=== PATIENT | female | born 1945 | race Caucasian/White ===

== ENCOUNTER 2021-02-15 13:42 | Inpatient (IN) | payer MEDICARE, OTHER ==
[~2021-02-15] VITALS: Ht 154.9 cm; Wt 48.1 kg
[2021-02-15] MEDS ORDERED: ATOR40TA59 PO (14:18)
[2021-02-15] MEDS ORDERED: TRAZ-120 PO (14:18)
[2021-02-15] MEDS ORDERED: VENL75TA PO (14:18)
[2021-02-15] MEDS ORDERED: LISI10TA16 PO (14:18)
[2021-02-15] MEDS ORDERED: GLIP5TAB10 PO (14:18)
[2021-02-15] MEDS ORDERED: METO25TA4 PO (14:18)
[2021-02-15] MEDS ORDERED: MAGNESIUM HYDROXIDE 2,400 MG/30 ML ORAL.SUSP. PO PRN (14:45)
[2021-02-15] MEDS ORDERED: ACETAMINOPHEN 325 MG TABLET PO PRN (14:45)
[2021-02-15] MEDS ORDERED: METHYL SALICYLATE/MENTHOL TOPICAL OINTMENT 57GM TUBE. TP PRN (14:45)
[2021-02-15] MEDS ORDERED: MAG HYDROX/AL HYDROX/SIMETH 30 ML ORAL.SUSP PO PRN (14:45)
[2021-02-15 15:37] VITALS: BP 136/69
[2021-02-15 16:46] LABS: BASO % 0 % (0-3); EOS % 0 % (0-3); HEMATOCRIT 43.2 % (36.0-47.0); HEMOGLOBIN 14.4 g/dL (12.0-15.5); LYMPH # 1.5 x10^3/uL (1.0-4.8); LYMPH % 25 % (24-48); MEAN CORPUSCULAR HEMOGLOBIN 30 pg (25-35); MEAN CORPUSCULAR HGB CONC 33 g/dL (31-37); MEAN CORPUSCULAR VOLUME 90 fL (79-100); MONO # 0.5 x10^3/uL (0.0-1.1); MONO % 8 % (0-9); NEUT # 3.8 x10^3uL (1.8-7.7); NEUT % 66 % (31-73); PLATELET COUNT 222 x10^3/uL (140-400); RED CELL DISTRIBUTION WIDTH 14.4 % (11.5-14.5); WHITE BLOOD COUNT 5.8 x10^3/uL (4.0-11.0)
[2021-02-15 16:57] LABS: ALBUMIN 3.9 g/dL (3.4-5.0); ALBUMIN/GLOBULIN RATIO 1.2 (1.0-1.7); CREATININE 0.8 mg/dL (0.6-1.0); GFR 70.1; MAGNESIUM 2.3 mg/dL (1.8-2.4); POTASSIUM 3.9 mmol/L (3.5-5.1); TOTAL BILIRUBIN 0.5 mg/dL (0.2-1.0); TOTAL PROTEIN 7.1 g/dL (6.4-8.2)
[2021-02-15 19:35] LABS: BACTERIA,URINE 0 /HPF (0-FEW); BILIRUBIN,URINE NEG (NEG); CLARITY,URINE CLEAR; COLOR,URINE YELLOW; GLUCOSE,URINE NEG (NEG); NITRITE,URINE NEG (NEG); SQUAMOUS EPITHELIAL CELL,UR OCC /LPF; WBC,URINE OCC /HPF (0-4)
[2021-02-15] MEDS: METOPROLOL TART IMMED RELEASE 25 MG TABLET. PO SCH (20:32)
[2021-02-15] MEDS: LISINOPRIL 10 MG TABLET PO SCH (20:32)
[2021-02-15] MEDS: ATORVASTATIN CALCIUM 20 MG TABLET PO SCH (20:33)
[2021-02-15] MEDS: traZODone 50 MG TABLET. PO SCH (20:33)
[2021-02-16 03:12] LABS: HEMOGLOBIN A1C 6.7 % (4.8-5.6); THYROXINE 7.7 ug/dL (4.5-12.0)
[2021-02-16 06:27] VITALS: BP 103/63
--- NOTE | 2021-02-16 08:47 | PDOC ---
Exam Note: Leighton Note: Late entry for 02/15/2021. Please also refer to the separate dictated note~for this date of service dictated separately.~Patient seen individually. Discussed the patient with Nursing staff reviewed the chart.~Reviewed interim history and current functioning. Reviewed vital signs,~Labs/ Radiology~and current medic ations noted below. Continue current treatment with the changes noted in the dictated addendum note Assessment: Vital Signs/I&O: Vital Signs Date Time Temp Pulse Resp B/P (MAP) Pulse Ox O2 Delivery O2 Flow Rate FiO2 02/16/21 06:27 97.4 76 16 103/63 (76) 94 I & O 02/15/21 02/15/21 02/16/21 15:00 23:00 07:00 Intake Total 840 ml Balance 840 ml Labs: Laboratory Tests Test 02/15/21 16:35 02/15/21 18:30 White Blood Count 5.8 x10^3/uL (4.0-11.0) Red Blood Count 4.80 x10^6/uL (3.50-5.40) Hemoglobin 14.4 g/dL (12.0-15.5) Hematocrit 43.2 % (36.0-47.0) Mean Corpuscular Volume 90 fL (79-100) Mean Corpuscular Hemoglobin 30 pg (25-35) Mean Corpuscular Hemoglobin Concent 33 g/dL (31-37) Red Cell Distribution Width 14.4 % (11.5-14.5) Platelet Count 222 x10^3/uL (140-400) Neutrophils (%) (Auto) 66 % (31-73) Lymphocytes (%) (Auto) 25 % (24-48) Monocytes (%) (Auto) 8 % (0-9) Eosinophils (%) (Auto) 0 % (0-3) Basophils (%) (Auto) 0 % (0-3) Neutrophils # (Auto) 3.8 x10^3uL (1.8-7.7) Lymphocytes # (Auto) 1.5 x10^3/uL (1.0-4.8) Monocytes # (Auto) 0.5 x10^3/uL (0.0-1.1) Eosinophils # (Auto) 0.0 x10^3/uL (0.0-0.7) Basophils # (Auto) 0.0 x10^3/uL (0.0-0.2) D-Dimer (Jolene) 0.60 mg/L (0.00-0.50) H Sodium Level 140 mmol/L (136-145) Potassium Level 3.9 mmol/L (3.5-5.1) Chloride Level 105 mmol/L (98-107) Carbon Dioxide Level 29 mmol/L (21-32) Anion Gap 6 (6-14) Blood Urea Nitrogen 18 mg/dL (7-20) Creatinine 0.8 mg/dL (0.6-1.0) Estimated GFR (Cockcroft-Gault) 70.1 BUN/Creatinine Ratio 23 (6-20) H Glucose Level 122 mg/dL (70-99) H Hemoglobin A1c 6.7 % (4.8-5.6) H Calcium Level 9.0 mg/dL (8.5-10.1) Magnesium Level 2.3 mg/dL (1.8-2.4) Total Bilirubin 0.5 mg/dL (0.2-1.0) Aspartate Amino Transferase (AST) 27 U/L (15-37) Alanine Aminotransferase (ALT) 37 U/L (14-59) Alkaline Phosphatase 64 U/L (46-116) Total Protein 7.1 g/dL (6.4-8.2) Albumin 3.9 g/dL (3.4-5.0) Albumin/Globulin Ratio 1.2 (1.0-1.7) Thyroxine (T4) 7.7 ug/dL (4.5-12.0) Total Triiodothyronine (TT3) 94 ng/dL (71-180) Urine Collection Type Unknown Urine Color Yellow Urine Clarity Clear Urine pH 6.5 Urine Specific [place] 1.025 Urine Protein Neg (NEG-TRACE) Urine Glucose (UA) Neg mg/dL (NEG) Urine Ketones (Stick) Neg mg/dL (NEG) Urine Blood Small (NEG) Urine Nitrite Neg (NEG) Urine Bilirubin Neg (NEG) Urine Urobilinogen Dipstick 1.0 mg/dL (0.2 mg/dL) Urine Leukocyte Esterase Neg (NEG) Urine RBC 3-5 /HPF (0-2) Urine WBC Occ /HPF (0-4) Urine Squamous Epithelial Cells Occ /LPF Urine Bacteria 0 /HPF (0-FEW) Current Medications: Meds: Current Medications Medications (Trade) Dose Ordered Sig/Manasa Route PRN Reason Start Time Stop Time Status Last Admin Dose Admin Lisinopril (Prinivil) 10 mg HS PO 02/15/21 21:00 02/15/21 20:32 Metoprolol Tartrate (Lopressor) 12.5 mg BID PO 02/15/21 21:00 02/15/21 20:32 Trazodone HCl (Desyrel) 50 mg QHS PO 02/15/21 21:00 02/15/21 20:33 Atorvastatin Calcium (Lipitor) 40 mg QHS PO 02/15/21 21:00 02/15/21 20:33 I have reviewed the current psychotropics carefully including drug interactions. Risk benefit ratio favors no change other than as noted in my dictated progress note. Diagnosis: Problems: (1) Major depressive disorder with psychotic features MARIA LUISA SMITH MD Feb 16, 2021 08:47
[2021-02-16] MEDS ORDERED: FLU VACC QUAD 21-22 (6MOS+) PF 0.5 ML SYRINGE. VAX IM ONE (09:00)
[2021-02-16] MEDS: METOPROLOL TART IMMED RELEASE 25 MG TABLET. PO SCH ×2 (09:32→20:17)
[2021-02-16] MEDS: glipiZIDE 5 MG TABLET PO SCH (09:32)
[2021-02-16] MEDS: VENLAFAXINE 75 MG TABLET. PO SCH (09:32)
[2021-02-16 11:41] LABS: THYROID STIM HORMONE (TSH) 0.999 uIU/mL (0.358-3.740)
[2021-02-16 16:01] VITALS: BP 127/74
--- NOTE | 2021-02-16 16:28 | CONS ---
DATE OF CONSULTATION: 02/16/2021 ATTENDING PHYSICIAN: Dr. Smith. REASON FOR CONSULTATION: We are asked to see this patient for a medical consultation. HISTORY OF PRESENT ILLNESS: The patient is a 75-year-old female admitted through [facility] with suicidal ideation. She is very depressed. She has made several gestures. She has had some visual hallucinations. There are underlying memory issues and dementia. She is comfortable this morning when I saw her. In talking with her, she tends to confabulate and make things up. She does have memory issues and could not answer simple questions. PAST MEDICAL HISTORY: Obtained from the chart is significant for essential hypertension; hyperlipidemia; type 2 diabetes, non-insulin dependent; urinary stress incontinence; depression; anxiety; and memory loss. ALLERGIES: She has no known drug allergies. SOCIAL HISTORY: She denied any alcohol or tobacco use. FAMILY HISTORY: Unobtainable. REVIEW OF SYSTEMS: Unfortunately is unobtainable. Much of the history is obtained from the family and intake. She has a daughter who is power of production manager. PHYSICAL EXAMINATION: GENERAL: When I saw her, this is a pleasant, middle-aged female. VITAL SIGNS: Her initial vital signs showed a blood pressure of 136/69 mmHg, her pulse is 78 and regular, her temperature is 98.1 degrees Fahrenheit, and oxygen saturation 94% on room air. HEENT: Head is without trauma. Pupils are reactive. Sclerae nonicteric. The oropharynx is clear. NECK: Supple. No bruits identified. LUNGS: Good breath sounds. CARDIOVASCULAR: Showed regular heart tones. No gallops. ABDOMEN: Soft. There is no guarding or rebound tenderness. EXTREMITIES: Without edema. NEUROLOGIC: Focally intact. She is alert. She is confused and cannot answer questions. She tries to confabulate and circumvent the issue. SKIN: Warm and dry. PERTINENT LABORATORY STUDIES: Admission hemoglobin was 14.4 g/dL with a white count of 5800. Electrolytes within normal range with a creatinine of 0.8 mg/dL. Nonfasting blood sugar 122, potassium is 3.9 mEq. Her hemoglobin A1c is slightly elevated at 6.7. Her T4 is 7.7 and normal. Transaminases are normal. Urinalysis was clear. ASSESSMENT: 1. This is a 75-year-old female who has underlying dementia. 2. Suicidal ideations with behavioral issues. 3. Type 2 diabetes mellitus with fairly good hemoglobin A1c and controlled. 4. Essential hypertension, currently normotensive. 5. Hyperlipidemia. PLAN: 1. This patient is stable from a medical standpoint. 2. I have reviewed her medicines and they should be continued as ordered. Thank you again for asking me to see the patient for a medical consultation. We should gladly follow her along during her inpatient course. NAVYA/PATI/ANA DR: Nicolasa TID: [id number] CC: MARIA LUISA SMITH MD
--- NOTE | 2021-02-16 17:33 | HP ---
ADMIT DATE: 02/15/2021 PSYCHIATRIC ADMISSION HISTORY/EVALUATION This late entry, date of service 02/15/2021 covers elements not covered in my initial note 02/15/2021. I met with the patient on the evening of 02/15/2021 for this evaluation. Previously discussed with nursing staff, reviewed the chart and also discussed with Sweetie Mora, [place] program coordinator. IDENTIFYING DATA: The patient is a 75-year-old female referred to us from [facility], where she presented from home on account of worsening symptoms of depression with suicidal ideation. Reportedly, she made a motion of a gun to her head. She has been depressed, having visual hallucinations of dogs and people verbally aggressive, having some auditory hallucinations, hearing voices that she needs to clean or she will be beheaded. She has had marked insomnia, worsening psychosis, agitation, depression, has failed outpatient psychiatric interventions resulting in this referral. CHIEF COMPLAINT: "I came today." The year is 2019. No, I don't remember the name of the president. I know who he is. No, I don't remember who was the president before him." The patient responded to my specific questions as noted. HISTORY OF PRESENT ILLNESS: The patient has a history of worsening symptoms of depression, feeling hopeless, helpless, worthless, with marked insomnia, sleep and appetite changes. She has made suicidal statements and motions and has been more forgetful and paranoid with hallucinations as noted above. No active homicidal ideation. PAST PSYCHIATRIC HISTORY: As above. MEDICAL HISTORY: Hypertension, hyperlipidemia, type 2 diabetes mellitus, urinary incontinence, recurrent falls. Accu-Cheks daily. CODE STATUS: FULL CODE. ALLERGIES: Negative. DIET: ADA. Takes medications whole. Ambulates independently. UA is awaited. CURRENT PSYCHOTROPICS: Trazodone 50 mg at bedtime, Effexor 75 mg b.i.d., but we are reducing this down to 75 mg a day since information from family indicates that she has had worsening psychosis and confusion with the higher dosage and both her daughters are nurses and they have observed similar effect with higher dosages of other antidepressants in the past. We have also started her on Zyprexa 2.5 mg q. 2 hours p.r.n., psychosis, agitation, max 7.5 mg in 24 hours after the nursing staff had called me as an emergency earlier. FAMILY HISTORY: Noncontributory. SOCIAL HISTORY: No history of alcohol, drug abuse, physical, sexual, or elder abuse. She is not known to be a perpetrator. REACTION TO HOSPITALIZATION: The patient accepting of it. ASSETS: Supportive family. REVIEW OF SYSTEMS: No CV, , pulmonary, eye, ENT system symptoms on review. Reliability poor. I met with the patient in her room evening of 02/15/2021. MENTAL STATUS EXAM: The patient is alert, oriented to herself, situation. Speech has some latency, coherent. Abstraction fair. Computation impaired. Language function intact. Mood and affect depressed. She has some intermittent hallucinations. Memory is impaired for recent events, remote is better. Somewhat distractible, anxious. No current suicidal or homicidal ideation. LABORATORY DATA: Reviewed. IMPRESSION: Major depressive disorder with psychotic features; major neurocognitive disorder; Alzheimer, vascular with delusion; depression; behavioral disturbance; anxiety disorder, unspecified; impulse control disorder, unspecified. Rest as above. PLAN: Admit to geropsychiatry unit at [facility]. I will see the patient daily individually from a psychiatric standpoint. Medical followup, Dr. Hardy/Dr. Corrigan. Continue the patient on her current psychotropics. Check CT head if not done recently. Continue current psychotropics, but reduce the Effexor as above. Make further changes as clinically indicated. ESTIMATED LENGTH OF STAY: 10-12 days. DISPOSITION PLANS: Back home or placement of that sort determined when she is stabilized. AISSATOU DR: Anita TID: [id number]
[2021-02-16] MEDS: traZODone 50 MG TABLET. PO SCH (20:14)
[2021-02-16] MEDS: ATORVASTATIN CALCIUM 20 MG TABLET PO SCH (20:14)
[2021-02-16] MEDS: LISINOPRIL 10 MG TABLET PO SCH (20:17)
[2021-02-16] MEDS: QUEtiapine 25 MG TABLET. PO SCH (20:18)
--- NOTE | 2021-02-16 21:30 | PDOC ---
Exam Note: Leighton Note: Please also refer to the separate dictated note~for this date of service dictated separately.~Patient seen individually. Discussed the patient with Nursing staff reviewed the chart.~Reviewed interim history and current functioning. Reviewed vital signs,~Labs/ Radiology~and current medications noted below. Continue current treatment with the changes noted in the dictated addendum note Assessment: Vital Signs/I&O: Vital Signs Date Time Temp Pulse Resp B/P (MAP) Pulse Ox O2 Delivery O2 Flow Rate FiO2 02/16/21 20:17 78 127/74 02/16/21 16:01 97.7 20 97 Room Air I & O 02/15/21 02/15/21 02/16/21 15:00 23:00 07:00 Intake Total 840 ml Balance 840 ml Current Medications: Meds: Current Medications Medications (Trade) Dose Ordered Sig/Manasa Route PRN Reason Start Time Stop Time Status Last Admin Dose Admin Acetaminophen (Tylenol) 650 mg PRN Q6HRS PRN PO MILD PAIN / TEMP > 100.3'F 02/15/21 14:45 Multi-Ingredient Ointment (Analgesic [place]) 1 anibal PRN QID PRN TP MUSCLE PAIN 02/15/21 14:45 Al Hydroxide/Mg Hydroxide (Mylanta Plus Xs) 15 ml PRN AFTMEALHC PRN PO DYSPEPSIA 02/15/21 14:45 Magnesium Hydroxide (Milk Of Magnesia) 2,400 mg PRN QHS PRN PO CONSTIPATION 02/15/21 14:45 Influenza Virus Vaccine Quadrival (Flulaval Quad [id number] Syringe) 0.5 ml ONCE ONCE VAX IM 02/16/21 09:00 02/16/21 09:01 DC 02/16/21 09:40 Glipizide (Glucotrol) 2.5 mg DAILY PO 02/16/21 09:00 02/16/21 09:32 Lisinopril (Prinivil) 10 mg HS PO 02/15/21 21:00 02/16/21 20:17 Metoprolol Tartrate (Lopressor) 12.5 mg BID PO 02/15/21 21:00 02/16/21 20:17 Trazodone HCl (Desyrel) 50 mg QHS PO 02/15/21 21:00 02/16/21 20:14 Venlafaxine HCl (Effexor) 75 mg DAILY PO 02/16/21 09:00 02/16/21 09:32 Atorvastatin Calcium (Lipitor) 40 mg QHS PO 02/15/21 21:00 02/16/21 20:14 Quetiapine Fumarate (SEROquel) 12.5 mg QHS PO 02/16/21 21:00 02/16/21 20:18 Current Medications Medications (Trade) Dose Ordered Sig/Manasa Route PRN Reason Start Time Stop Time Status Last Admin Dose Admin Influenza Virus Vaccine Quadrival (Flulaval Quad Syringe) 0.5 ml ONCE ONCE VAX IM 02/16/21 09:00 02/16/21 09:01 DC 02/16/21 09:40 Glipizide (Glucotrol) 2.5 mg DAILY PO 02/16/21 09:00 02/16/21 09:32 Venlafaxine HCl (Effexor) 75 mg DAILY PO 02/16/21 09:00 02/16/21 09:32 Quetiapine Fumarate (SEROquel) 12.5 mg QHS PO 02/16/21 21:00 02/16/21 20:18 I have reviewed the current psychotropics carefully including drug interactions. Risk benefit ratio favors no change other than as noted in my dictated progress note. Diagnosis: Problems: (1) Major neurocognitive disorder (2) Dementia in Alzheimer's disease with delusions (3) Dementia in Alzheimer's disease with depression (4) Dementia in Alzheimer's disease with early onset with behavioral disturbance (5) Dementia, vascular, with delusions (6) Dementia, vascular, with depression (7) Anxiety disorder, unspecified (8) Impulse control disorder, unspecified (9) Major depressive disorder with psychotic features MARIA LUISA SMITH MD Feb 16, 2021 21:30
[2021-02-17 06:15] VITALS: BP 124/54
[2021-02-17] MEDS: VENLAFAXINE 75 MG TABLET. PO SCH (08:38)
[2021-02-17] MEDS: glipiZIDE 5 MG TABLET PO SCH (08:38)
[2021-02-17] MEDS: METOPROLOL TART IMMED RELEASE 25 MG TABLET. PO SCH ×2 (08:38→20:07)
--- NOTE | 2021-02-17 12:36 | PN ---
DATE: 02/16/2021 PSYCHIATRIC PROGRESS NOTE SUBJECTIVE: I met with the patient on evening of 02/16/2021 in [address] hallway outside her room. Per LUCIANO Sprague, the patient slept 6-1/2 hours previous night, remained somewhat confused. Denies suicidal ideation. No hallucinations noted. She is quite confused and delusional, believes she came here for surgery because of her memory problems. She was paranoid in the morning. No CV, , pulmonary, eye system symptoms on review. Complains of feeling cold. MENTAL STATUS EXAMINATION: Oriented to herself, situation. Speech has some latency, coherent. Abstraction fair. Computation impaired. Language function intact. Mood and affect remains somewhat dysphoric, anxious. Labs reviewed. She is paranoid. ASSESSMENT: Major depressive disorder with psychotic features, mild cognitive impairment versus major neurocognitive disorder, Alzheimer's vascular with delusion, depression; anxiety disorder, unspecified. Rest unchanged. PLAN: Start Seroquel 12.5 mg at bedtime for her mood symptoms, anxiety and paranoia. Effexor has been reduced down to 75 mg a day following feedback from the family that the higher dosages worsened some of her mood and psychosis. Continue trazodone 50 mg at bedtime and Zyprexa p.r.n. KONRAD/CHRISTINE DR: KONRAD/madhu TID: [id number]
[2021-02-17 15:39] VITALS: BP 128/56
[2021-02-17] MEDS: LISINOPRIL 10 MG TABLET PO SCH (20:08)
[2021-02-17] MEDS: traZODone 50 MG TABLET. PO SCH (20:08)
[2021-02-17] MEDS: QUEtiapine 25 MG TABLET. PO SCH (20:08)
[2021-02-17] MEDS: ATORVASTATIN CALCIUM 20 MG TABLET PO SCH (20:08)
--- NOTE | 2021-02-17 21:34 | PDOC ---
Exam Note: Leighton Note: Please also refer to the separate dictated note~for this date of service dictated separately.~Patient seen individually. Discussed the patient with Nursing staff reviewed the chart.~Reviewed interim history and current functioning. Reviewed vital signs,~Labs/ Radiology~and current medications noted below. Continue current treatment with the changes noted in the dictated addendum note Assessment: Vital Signs/I&O: Vital Signs Date Time Temp Pulse Resp B/P (MAP) Pulse Ox O2 Delivery O2 Flow Rate FiO2 02/17/21 20:08 76 128/56 02/17/21 15:39 98.0 18 98 Room Air I & O 02/16/21 02/16/21 02/17/21 15:00 23:00 07:00 Intake Total 240 ml 360 ml Balance 240 ml 360 ml Current Medications: Meds: Current Medications Medications (Trade) Dose Ordered Sig/Manasa Route PRN Reason Start Time Stop Time Status Last Admin Dose Admin Acetaminophen (Tylenol) 650 mg PRN Q6HRS PRN PO MILD PAIN / TEMP > 100.3'F 02/15/21 14:45 Multi-Ingredient Ointment (Analgesic [place]) 1 anibal PRN QID PRN TP MUSCLE PAIN 02/15/21 14:45 Al Hydroxide/Mg Hydroxide (Mylanta Plus Xs) 15 ml PRN AFTMEALHC PRN PO DYSPEPSIA 02/15/21 14:45 Magnesium Hydroxide (Milk Of Magnesia) 2,400 mg PRN QHS PRN PO CONSTIPATION 02/15/21 14:45 Influenza Virus Vaccine Quadrival (Flulaval Quad [id number] Syringe) 0.5 ml ONCE ONCE VAX IM 02/16/21 09:00 02/16/21 09:01 DC 02/16/21 09:40 Glipizide (Glucotrol) 2.5 mg DAILY PO 02/16/21 09:00 02/17/21 08:38 Lisinopril (Prinivil) 10 mg HS PO 02/15/21 21:00 02/17/21 20:08 Metoprolol Tartrate (Lopressor) 12.5 mg BID PO 02/15/21 21:00 02/17/21 20:07 Trazodone HCl (Desyrel) 50 mg QHS PO 02/15/21 21:00 02/17/21 20:08 Venlafaxine HCl (Effexor) 75 mg DAILY PO 02/16/21 09:00 02/17/21 08:38 Atorvastatin Calcium (Lipitor) 40 mg QHS PO 02/15/21 21:00 02/17/21 20:08 Quetiapine Fumarate (SEROquel) 12.5 mg QHS PO 02/16/21 21:00 02/17/21 20:08 I have reviewed the current psychotropics carefully including drug interactions. Risk benefit ratio favors no change other than as noted in my dictated progress note. Diagnosis: Problems: (1) Major depressive disorder with psychotic features (2) Impulse control disorder, unspecified (3) Anxiety disorder, unspecified (4) Dementia, vascular, with depression (5) Dementia, vascular, with delusions (6) Dementia in Alzheimer's disease with depression (7) Dementia in Alzheimer's disease with delusions (8) Major neurocognitive disorder (9) Dementia in Alzheimer's disease with early onset with behavioral disturbance MARIA LUISA SMITH MD Feb 17, 2021 21:34
[2021-02-18 05:59] VITALS: BP 161/54
[2021-02-18] MEDS: glipiZIDE 5 MG TABLET PO SCH (08:35)
[2021-02-18] MEDS: VENLAFAXINE 75 MG TABLET. PO SCH (08:35)
[2021-02-18] MEDS: METOPROLOL TART IMMED RELEASE 25 MG TABLET. PO SCH ×2 (08:35→20:35)
[2021-02-18 15:46] VITALS: BP 141/65
[2021-02-18] MEDS: ATORVASTATIN CALCIUM 20 MG TABLET PO SCH (20:33)
[2021-02-18] MEDS: LISINOPRIL 10 MG TABLET PO SCH (20:34)
[2021-02-18] MEDS: QUEtiapine 25 MG TABLET. PO SCH (20:34)
[2021-02-18] MEDS: traZODone 50 MG TABLET. PO SCH (20:35)
--- NOTE | 2021-02-18 21:33 | PDOC ---
Exam Note: Leighton Note: Please also refer to the separate dictated note~for this date of service dictated separately.~Patient seen individually. Discussed the patient with Nursing staff reviewed the chart.~Reviewed interim history and current functioning. Reviewed vital signs,~Labs/ Radiology~and current medications noted below. Continue current treatment with the changes noted in the dictated addendum note Assessment: Vital Signs/I&O: Vital Signs Date Time Temp Pulse Resp B/P (MAP) Pulse Ox O2 Delivery O2 Flow Rate FiO2 02/18/21 20:35 75 141/65 02/18/21 15:46 97.8 20 99 02/17/21 15:39 Room Air I & O 02/17/21 02/17/21 02/18/21 15:00 23:00 07:00 Intake Total 360 ml 480 ml Balance 360 ml 480 ml Current Medications: Meds: Current Medications Medications (Trade) Dose Ordered Sig/Manasa Route PRN Reason Start Time Stop Time Status Last Admin Dose Admin Acetaminophen (Tylenol) 650 mg PRN Q6HRS PRN PO MILD PAIN / TEMP > 100.3'F 02/15/21 14:45 Multi-Ingredient Ointment (Analgesic [place]) 1 anibal PRN QID PRN TP MUSCLE PAIN 02/15/21 14:45 Al Hydroxide/Mg Hydroxide (Mylanta Plus Xs) 15 ml PRN AFTMEALHC PRN PO DYSPEPSIA 02/15/21 14:45 Magnesium Hydroxide (Milk Of Magnesia) 2,400 mg PRN QHS PRN PO CONSTIPATION 02/15/21 14:45 Influenza Virus Vaccine Quadrival (Flulaval Quad [id number] Syringe) 0.5 ml ONCE ONCE VAX IM 02/16/21 09:00 02/16/21 09:01 DC 02/16/21 09:40 Glipizide (Glucotrol) 2.5 mg DAILY PO 02/16/21 09:00 02/18/21 08:35 Lisinopril (Prinivil) 10 mg HS PO 02/15/21 21:00 02/18/21 20:34 Metoprolol Tartrate (Lopressor) 12.5 mg BID PO 02/15/21 21:00 02/18/21 20:35 Trazodone HCl (Desyrel) 50 mg QHS PO 02/15/21 21:00 02/18/21 20:35 Venlafaxine HCl (Effexor) 75 mg DAILY PO 02/16/21 09:00 02/18/21 08:35 Atorvastatin Calcium (Lipitor) 40 mg QHS PO 02/15/21 21:00 02/18/21 20:33 Quetiapine Fumarate (SEROquel) 12.5 mg QHS PO 02/16/21 21:00 02/18/21 20:34 I have reviewed the current psychotropics carefully including drug interactions. Risk benefit ratio favors no change other than as noted in my dictated progress note. Diagnosis: Problems: (1) Impulse control disorder, unspecified (2) Anxiety disorder, unspecified (3) Dementia, vascular, with depression (4) Dementia, vascular, with delusions (5) Dementia in Alzheimer's disease with depression (6) Dementia in Alzheimer's disease with delusions (7) Major neurocognitive disorder (8) Dementia in Alzheimer's disease with early onset with behavioral disturbance MARIA LUISA SMITH MD Feb 18, 2021 21:33
[2021-02-19 06:05] VITALS: BP 148/88
[2021-02-19] MEDS: glipiZIDE 5 MG TABLET PO SCH (08:52)
[2021-02-19] MEDS: METOPROLOL TART IMMED RELEASE 25 MG TABLET. PO SCH ×2 (08:52→20:20)
[2021-02-19] MEDS: VENLAFAXINE 75 MG TABLET. PO SCH (08:52)
--- NOTE | 2021-02-19 14:25 | TX PLAN ---
Interdisciplinary Tx Plan Admission Information Feb 15, 2021 at 13:55 Legal Status (on Admission): Voluntary DPOA/Guardian Name: Marlys Donaldson Contact Other Contact Verified Code Status: DNR Allergies: Coded Allergies: No Known Drug Allergies (Unverified , 02/15/21) Diagnoses Primary Diagnosis: MDD with psychotic features Reasons for Admission: Agitated, Sig. Change Sleep, Hallucinations, Suicidal ideation, Confusion/Disoriented, Other Problem in Patient's Words: She is not being cared for and continues to have increased hallucinations/depression. Additional Admission Comments: According to the intake, pt is SI, wants to be under [place], insomnia, depressed, made motion of holding gun to her head, visual hallucinations, seeing dogs and people, verbal aggression. Problems Active Problems: Confusion Inactive Problems: Medication compliant Pt Strengths/Limitations Ability for [place]: Poor Cognitive Functioning/Ability: Fair Communication Skills/Ability: Fair Financial Resources: Fair Insight/Judgement: Poor Intellectual Ability: Fair Physical Health: Fair Social Skills: Fair Stability in Family: Good Stability in School/Work: Poor Verbal Skills: Fair Discharge Criteria Discharge Criteria: Able meet basic life need, Adequate arrangements @DC, Improved behavior, Improved mood/thought Preliminary Discharge Plan Preliminary DC Plan: Current Living Arrange., Other Special Precautions Fall Risk: Low Initial D/C Plan Discharge plan is unknown at this time; may need referrals for a higher level of care. Identified Discharge Needs: Concerned may need a higher level of care. Currently Utilized Resources Currently Utilized Resources/P: Primary Care Physician Neurologist Referrals Community Resources: None Identified Problems/Hx/Goals Objectives/Short-Term Goals Short Term Goals: Dec. Aggression, Dec. Outbursts, Dec. Symp. Depression, Prevent Deterioration, Promote Coping Skill Short Term Goals in Patient's: N/A Interventions/Frequency Staff Interventions/Frequency&: Psychiatrist to assess pt at least 3x per week for medication management. Social Work to assess pt at least 2x per week to identify barriers to care and discharge planning goals. Nursing to assess pt medication effects, behavior management and complete 15 minute checks daily. Encourage participation in group activities (if applicable) or 1:1 engagement based off activity dept goals. History Vocational History: Pt worked in [employer] most of her life. 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 Community Follow-up Primary Care Physician Neurologist Treatment Plan Explained Patient/Product Handler had this treatment plan explained to him/her as indicated by the signature below and has been given the opportunity to ask questions and make suggestions: Date: Patient/Product Handler Signature: Patient/Product Handler Decline: No (Pt daughters active in care.) EVELYN MAYA Feb 19, 2021 14:25
[2021-02-19 15:39] VITALS: BP 146/76
[2021-02-19] MEDS: traZODone 50 MG TABLET. PO SCH (20:19)
[2021-02-19] MEDS: ATORVASTATIN CALCIUM 20 MG TABLET PO SCH (20:19)
[2021-02-19] MEDS: QUEtiapine 25 MG TABLET. PO SCH (20:19)
[2021-02-19] MEDS: LISINOPRIL 10 MG TABLET PO SCH (20:19)
--- NOTE | 2021-02-19 22:48 | PDOC ---
Exam Note: Leighton Note: Please also refer to the separate dictated note~for this date of service dictated separately.~Patient seen individually. Discussed the patient with Nursing staff reviewed the chart.~Reviewed interim history and current functioning. Reviewed vital signs,~Labs/ Radiology~and current medications noted below. Continue current treatment with the changes noted in the dictated addendum note Assessment: Vital Signs/I&O: Vital Signs Date Time Temp Pulse Resp B/P (MAP) Pulse Ox O2 Delivery O2 Flow Rate FiO2 02/19/21 20:20 77 146/76 02/19/21 15:39 98.2 20 98 02/17/21 15:39 Room Air I & O 02/18/21 02/18/21 02/19/21 15:00 23:00 07:00 Intake Total 600 ml 600 ml Balance 600 ml 600 ml Current Medications: Meds: Current Medications Medications (Trade) Dose Ordered Sig/Manasa Route PRN Reason Start Time Stop Time Status Last Admin Dose Admin Acetaminophen (Tylenol) 650 mg PRN Q6HRS PRN PO MILD PAIN / TEMP > 100.3'F 02/15/21 14:45 Multi-Ingredient Ointment (Analgesic [place]) 1 anibal PRN QID PRN TP MUSCLE PAIN 02/15/21 14:45 Al Hydroxide/Mg Hydroxide (Mylanta Plus Xs) 15 ml PRN AFTMEALHC PRN PO DYSPEPSIA 02/15/21 14:45 Magnesium Hydroxide (Milk Of Magnesia) 2,400 mg PRN QHS PRN PO CONSTIPATION 02/15/21 14:45 Influenza Virus Vaccine Quadrival (Flulaval Quad [id number] Syringe) 0.5 ml ONCE ONCE VAX IM 02/16/21 09:00 02/16/21 09:01 DC 02/16/21 09:40 Glipizide (Glucotrol) 2.5 mg DAILY PO 02/16/21 09:00 02/19/21 08:52 Lisinopril (Prinivil) 10 mg HS PO 02/15/21 21:00 02/19/21 20:19 Metoprolol Tartrate (Lopressor) 12.5 mg BID PO 02/15/21 21:00 02/19/21 20:20 Trazodone HCl (Desyrel) 50 mg QHS PO 02/15/21 21:00 02/19/21 20:19 Venlafaxine HCl (Effexor) 75 mg DAILY PO 02/16/21 09:00 02/19/21 08:52 Atorvastatin Calcium (Lipitor) 40 mg QHS PO 02/15/21 21:00 02/19/21 20:19 Quetiapine Fumarate (SEROquel) 12.5 mg QHS PO 02/16/21 21:00 02/19/21 20:19 I have reviewed the current psychotropics carefully including drug interactions. Risk benefit ratio favors no change other than as noted in my dictated progress note. 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
--- NOTE | 2021-02-19 23:46 | PN ---
DATE: 02/17/2021 PSYCHIATRIC PROGRESS NOTE This is a late entry of 02/17 that covers the elements not covered in my initial note. SUBJECTIVE: Discussed with Mckenna RN. The patient slept 5 hours previous night. She has been confused, forgetful, wandering the hallways and has made good friends with one other demented patient, compliant with medications. No hallucinations noted, gets a little irritable at times. REVIEW OF SYSTEMS: No CV, , pulmonary, eye, ENT system symptoms on review. I met her in the hallway outside her room. MENTAL STATUS EXAMINATION: Oriented to herself. Insight, judgment, recent and remote memory, attention, concentration, fund of knowledge poor consistent with her diagnosis. Remote memory are better than recent labs reviewed. IMPRESSION: Major depressive disorder with psychotic features. Major neurocognitive disorder, Alzheimer, vascular with delusion, depression. Rest unchanged. PLAN: Continue psychotropics from initial note. Effexor has been reduced. Maintain trazodone, Seroquel at low dose 12.5 mg at bedtime, may need to adjust this if psychotic symptoms evident. CONI DR: Anita TID: [id number]
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
[2021-02-20 05:49] VITALS: BP 155/72
[2021-02-20] MEDS: VENLAFAXINE 75 MG TABLET. PO SCH (08:40)
[2021-02-20] MEDS: glipiZIDE 5 MG TABLET PO SCH (08:41)
[2021-02-20] MEDS: METOPROLOL TART IMMED RELEASE 25 MG TABLET. PO SCH ×2 (08:41→20:20)
[2021-02-20 15:53] VITALS: BP 122/79
[2021-02-20] MEDS: traZODone 50 MG TABLET. PO SCH (20:20)
[2021-02-20] MEDS: LISINOPRIL 10 MG TABLET PO SCH (20:20)
[2021-02-20] MEDS: ATORVASTATIN CALCIUM 20 MG TABLET PO SCH (20:20)
[2021-02-20] MEDS: QUEtiapine 25 MG TABLET. PO SCH (20:21)
--- NOTE | 2021-02-20 21:52 | PDOC ---
Exam Note: Leighton Note: Please also refer to the separate dictated note~for this date of service dictated separately.~Patient seen individually. Discussed the patient with Nursing staff reviewed the chart.~Reviewed interim history and current functioning. Reviewed vital signs,~Labs/ Radiology~and current medications noted below. Continue current treatment with the changes noted in the dictated addendum note Assessment: Vital Signs/I&O: Vital Signs Date Time Temp Pulse Resp B/P (MAP) Pulse Ox O2 Delivery O2 Flow Rate FiO2 02/20/21 20:20 71 122/79 02/20/21 15:53 98.0 18 97 02/17/21 15:39 Room Air I & O 02/19/21 02/19/21 02/20/21 15:00 23:00 07:00 Intake Total 600 ml 500 ml Balance 600 ml 500 ml Current Medications: Meds: Current Medications Medications (Trade) Dose Ordered Sig/Manasa Route PRN Reason Start Time Stop Time Status Last Admin Dose Admin Acetaminophen (Tylenol) 650 mg PRN Q6HRS PRN PO MILD PAIN / TEMP > 100.3'F 02/15/21 14:45 Multi-Ingredient Ointment (Analgesic [place]) 1 anibal PRN QID PRN TP MUSCLE PAIN 02/15/21 14:45 Al Hydroxide/Mg Hydroxide (Mylanta Plus Xs) 15 ml PRN AFTMEALHC PRN PO DYSPEPSIA 02/15/21 14:45 Magnesium Hydroxide (Milk Of Magnesia) 2,400 mg PRN QHS PRN PO CONSTIPATION 02/15/21 14:45 Influenza Virus Vaccine Quadrival (Flulaval Quad [id number] Syringe) 0.5 ml ONCE ONCE VAX IM 02/16/21 09:00 02/16/21 09:01 DC 02/16/21 09:40 Glipizide (Glucotrol) 2.5 mg DAILY PO 02/16/21 09:00 02/20/21 08:41 Lisinopril (Prinivil) 10 mg HS PO 02/15/21 21:00 02/20/21 20:20 Metoprolol Tartrate (Lopressor) 12.5 mg BID PO 02/15/21 21:00 02/20/21 20:20 Trazodone HCl (Desyrel) 50 mg QHS PO 02/15/21 21:00 02/20/21 20:20 Venlafaxine HCl (Effexor) 75 mg DAILY PO 02/16/21 09:00 02/20/21 08:40 Atorvastatin Calcium (Lipitor) 40 mg QHS PO 02/15/21 21:00 02/20/21 20:20 Quetiapine Fumarate (SEROquel) 12.5 mg QHS PO 02/16/21 21:00 02/20/21 20:21 I have reviewed the current psychotropics carefully including drug interactions. Risk benefit ratio favors no change other than as noted in my dictated progress note. 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
[2021-02-21 06:28] VITALS: BP 113/53
[2021-02-21] MEDS: glipiZIDE 5 MG TABLET PO SCH (09:04)
[2021-02-21] MEDS: METOPROLOL TART IMMED RELEASE 25 MG TABLET. PO SCH ×2 (09:04→20:34)
[2021-02-21] MEDS: VENLAFAXINE 75 MG TABLET. PO SCH (09:04)
[2021-02-21 16:15] VITALS: BP 164/71
[2021-02-21] MEDS: ATORVASTATIN CALCIUM 20 MG TABLET PO SCH (20:33)
[2021-02-21] MEDS: LISINOPRIL 10 MG TABLET PO SCH (20:33)
[2021-02-21] MEDS: traZODone 50 MG TABLET. PO SCH (20:34)
[2021-02-21] MEDS: QUEtiapine 25 MG TABLET. PO SCH (20:34)
--- NOTE | 2021-02-21 22:25 | PDOC ---
Exam Note: Leighton Note: This note is a late entry for 02/19/2021 covers elements not covered in my initial note. Subjective: The patient was seen individually in the evening of 02/19/2021 with Jacqui WOLF, discussed and reviewed the chart. The patient slept 7 hours previous night. Patient remains confused. She thought she was in [place] visiting her aunt. She is compliant with medications. I met with her in the hallway outside her room. Review of Systems: No CV, , pulmonary, eye, ENT system symptoms on review. Reliability poor. Mental Status Exam: The patient is oriented to herself and situation. Insight, judgment, recent memory is impaired. Remote is better. Language function intact. Attention span short. Mood and affect improved. Laboratory Data: Reviewed. Impression: Major depressive disorder with psychotic features. Major neurocognitive disorder, Alzheimer, vascular with delusion, depression, behavioral disturbance. Anxiety disorder unspecified. Impulse control disorder unspecified. Plan: No change from initial note. Assessment: Vital Signs/I&O: Vital Signs Date Time Temp Pulse Resp B/P (MAP) Pulse Ox O2 Delivery O2 Flow Rate FiO2 02/21/21 20:34 78 164/71 02/21/21 16:15 97.3 16 96 02/17/21 15:39 Room Air I & O0 02/20/21 02/20/21 02/21/21 15:00 23:00 07:00 Intake Total 560 ml 480 ml Balance 560 ml 480 ml Labs: Laboratory Tests Test 02/21/21 06:00 SARS-CoV-2 (PCR) Not detected (NOT DETECTD) Current Medications: Meds: Laboratory Tests Test 02/21/21 06:00 Coronavirus (COVID-19)(PCR) Not detected Current Medications Medications (Trade) Dose Ordered Sig/Manasa Route PRN Reason Start Time Stop Time Status Last Admin Dose Admin Acetaminophen (Tylenol) 650 mg PRN Q6HRS PRN PO MILD PAIN / TEMP > 100.3'F 02/15/21 14:45 Multi-Ingredient Ointment (Analgesic [place]) 1 anibal PRN QID PRN TP MUSCLE PAIN 02/15/21 14:45 Al Hydroxide/Mg Hydroxide (Mylanta Plus Xs) 15 ml PRN AFTMEALHC PRN PO DYSPEPSIA 02/15/21 14:45 Magnesium Hydroxide (Milk Of Magnesia) 2,400 mg PRN QHS PRN PO CONSTIPATION 02/15/21 14:45 Influenza Virus Vaccine Quadrival (Flulaval Quad Syringe) 0.5 ml ONCE ONCE VAX IM 02/16/21 09:00 02/16/21 09:01 DC 02/16/21 09:40 Glipizide (Glucotrol) 2.5 mg DAILY PO 02/16/21 09:00 02/21/21 09:04 Lisinopril (Prinivil) 10 mg HS PO 02/15/21 21:00 02/21/21 20:33 Metoprolol Tartrate (Lopressor) 12.5 mg BID PO 02/15/21 21:00 02/21/21 20:34 Trazodone HCl (Desyrel) 50 mg QHS PO 02/15/21 21:00 02/21/21 20:34 Venlafaxine HCl (Effexor) 75 mg DAILY PO 02/16/21 09:00 02/21/21 09:04 Atorvastatin Calcium (Lipitor) 40 mg QHS PO 02/15/21 21:00 02/21/21 20:33 Quetiapine Fumarate (SEROquel) 12.5 mg QHS PO 02/16/21 21:00 02/21/21 20:34 I have reviewed the current psychotropics carefully including drug interactions. Risk benefit ratio favors no change other than as noted in my dictated progress note. 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
--- NOTE | 2021-02-21 22:34 | PDOC ---
Exam Note: Leighton Note: Please also refer to the separate dictated note~for this date of service dictated separately.~Patient seen individually. Discussed the patient with Nursing staff reviewed the chart.~Reviewed interim history and current functioning. Reviewed vital signs,~Labs/ Radiology~and current medications noted below. Continue current treatment with the changes noted in the dictated addendum note Assessment: Vital Signs/I&O: Vital Signs Date Time Temp Pulse Resp B/P (MAP) Pulse Ox O2 Delivery O2 Flow Rate FiO2 02/21/21 20:34 78 164/71 02/21/21 16:15 97.3 16 96 02/17/21 15:39 Room Air I & O 02/20/21 02/20/21 02/21/21 15:00 23:00 07:00 Intake Total 560 ml 480 ml Balance 560 ml 480 ml Labs: Laboratory Tests Test 02/21/21 06:00 SARS-CoV-2 (PCR) Not detected (NOT DETECTD) Current Medications: Meds: Laboratory Tests Test 02/21/21 06:00 Coronavirus (COVID-19)(PCR) Not detected Current Medications Medications (Trade) Dose Ordered Sig/Manasa Route PRN Reason Start Time Stop Time Status Last Admin Dose Admin Acetaminophen (Tylenol) 650 mg PRN Q6HRS PRN PO MILD PAIN / TEMP > 100.3'F 02/15/21 14:45 Multi-Ingredient Ointment (Analgesic [place]) 1 anibal PRN QID PRN TP MUSCLE PAIN 02/15/21 14:45 Al Hydroxide/Mg Hydroxide (Mylanta Plus Xs) 15 ml PRN AFTMEALHC PRN PO DYSPEPSIA 02/15/21 14:45 Magnesium Hydroxide (Milk Of Magnesia) 2,400 mg PRN QHS PRN PO CONSTIPATION 02/15/21 14:45 Influenza Virus Vaccine Quadrival (Flulaval Quad [id number] Syringe) 0.5 ml ONCE ONCE VAX IM 02/16/21 09:00 02/16/21 09:01 DC 02/16/21 09:40 Glipizide (Glucotrol) 2.5 mg DAILY PO 02/16/21 09:00 02/21/21 09:04 Lisinopril (Prinivil) 10 mg HS PO 02/15/21 21:00 02/21/21 20:33 Metoprolol Tartrate (Lopressor) 12.5 mg BID PO 02/15/21 21:00 02/21/21 20:34 Trazodone HCl (Desyrel) 50 mg QHS PO 02/15/21 21:00 02/21/21 20:34 Venlafaxine HCl (Effexor) 75 mg DAILY PO 02/16/21 09:00 02/21/21 09:04 Atorvastatin Calcium (Lipitor) 40 mg QHS PO 02/15/21 21:00 02/21/21 20:33 Quetiapine Fumarate (SEROquel) 12.5 mg QHS PO 02/16/21 21:00 02/21/21 20:34 I have reviewed the current psychotropics carefully including drug interactions. Risk benefit ratio favors no change other than as noted in my dictated progress note. 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
[2021-02-22 06:10] VITALS: BP 102/53
--- NOTE | 2021-02-22 08:44 | PDOC ---
Exam Note: Leighton Note: This note is a late entry for 02/20/2021 covers elements not covered in my initial note. Subjective: The patient was seen individually in the evening of 02/20/2021 with Fatimah WOLF, discussed and reviewed the chart. The patient slept 4-1/2 hours previous night. Patient has been calm, social. No hallucinations noted. She is little suspicious at times. Review of Systems: No CV, , pulmonary, eye, ENT system symptoms on review. Reliability poor. Mental Status Exam: The patient is oriented to herself. Insight and judgment, recent and remote memory, attention and concentration, fund of knowledge is poor consistent with her diagnoses. Laboratory Data: Reviewed. Impression: Major depressive disorder with psychotic features. Major neurocognitive disorder, Alzheimer, vascular with delusion, depression, beha vioral disturbance. Anxiety disorder unspecified. Plan: No change from initial note. Effexor has been reduced. She is on low dose Seroquel, trazodone for insomnia and Zyprexa p.r.n. which is not needed. Assessment: Vital Signs/I&O: Vital Signs Date Time Temp Pulse Resp B/P (MAP) Pulse Ox O2 Delivery O2 Flow Rate FiO2 02/22/21 06:10 97.8 68 16 102/53 (69) 96 02/17/21 15:39 Room Air I & O 02/21/21 02/21/21 02/22/21 15:00 23:00 07:00 Intake Total 600 ml 860 ml Balance 600 ml 860 ml Current Medications: Meds: Current Medications Medications (Trade) Dose Ordered Sig/Manasa Route PRN Reason Start Time Stop Time Status Last Admin Dose Admin Acetaminophen (Tylenol) 650 mg PRN Q6HRS PRN PO MILD PAIN / TEMP > 100.3'F 02/15/21 14:45 Multi-Ingredient Ointment (Analgesic [place]) 1 anibal PRN QID PRN TP MUSCLE PAIN 02/15/21 14:45 Al Hydroxide/Mg Hydroxide (Mylanta Plus Xs) 15 ml PRN AFTMEALHC PRN PO DYSPEPSIA 02/15/21 14:45 Magnesium Hydroxide (Milk Of Magnesia) 2,400 mg PRN QHS PRN PO CONSTIPATION 02/15/21 14:45 Influenza Virus Vaccine Quadrival (Flulaval Quad Syringe) 0.5 ml ONCE ONCE VAX IM 02/16/21 09:00 02/16/21 09:01 DC 02/16/21 09:40 Glipizide (Glucotrol) 2.5 mg DAILY PO 02/16/21 09:00 02/21/21 09:04 Lisinopril (Prinivil) 10 mg HS PO 02/15/21 21:00 02/21/21 20:33 Metoprolol Tartrate (Lopressor) 12.5 mg BID PO 02/15/21 21:00 02/21/21 20:34 Trazodone HCl (Desyrel) 50 mg QHS PO 02/15/21 21:00 02/21/21 20:34 Venlafaxine HCl (Effexor) 75 mg DAILY PO 02/16/21 09:00 02/21/21 09:04 Atorvastatin Calcium (Lipitor) 40 mg QHS PO 02/15/21 21:00 02/21/21 20:33 Quetiapine Fumarate (SEROquel) 12.5 mg QHS PO 02/16/21 21:00 02/21/21 20:34 I have reviewed the current psychotropics carefully including drug interactions. Risk benefit ratio favors no change other than as noted in my dictated progress note. 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
[2021-02-22] MEDS: VENLAFAXINE 75 MG TABLET. PO SCH (09:05)
[2021-02-22] MEDS: glipiZIDE 5 MG TABLET PO SCH (09:05)
[2021-02-22] MEDS: METOPROLOL TART IMMED RELEASE 25 MG TABLET. PO SCH ×2 (09:05→20:29)
[2021-02-22 15:56] VITALS: BP 134/72
[2021-02-22] MEDS: traZODone 50 MG TABLET. PO SCH (20:28)
[2021-02-22] MEDS: ATORVASTATIN CALCIUM 20 MG TABLET PO SCH (20:29)
[2021-02-22] MEDS: LISINOPRIL 10 MG TABLET PO SCH (20:29)
[2021-02-22] MEDS: QUEtiapine 25 MG TABLET. PO SCH (20:31)
--- NOTE | 2021-02-22 21:47 | PDOC ---
Exam Note: Leighton Note: Please also refer to the separate dictated note~for this date of service dictated separately.~Patient seen individually. Discussed the patient with Nursing staff reviewed the chart.~Reviewed interim history and current functioning. Reviewed vital signs,~Labs/ Radiology~and current medications noted below. Continue current treatment with the changes noted in the dictated addendum note Assessment: Vital Signs/I&O: Vital Signs Date Time Temp Pulse Resp B/P (MAP) Pulse Ox O2 Delivery O2 Flow Rate FiO2 02/22/21 20:29 69 134/72 02/22/21 15:56 98.1 20 97 02/17/21 15:39 Room Air I & O 02/21/21 02/21/21 02/22/21 15:00 23:00 07:00 Intake Total 600 ml 860 ml Balance 600 ml 860 ml Current Medications: Meds: Current Medications Medications (Trade) Dose Ordered Sig/Manasa Route PRN Reason Start Time Stop Time Status Last Admin Dose Admin Acetaminophen (Tylenol) 650 mg PRN Q6HRS PRN PO MILD PAIN / TEMP > 100.3'F 02/15/21 14:45 Multi-Ingredient Ointment (Analgesic [place]) 1 anibal PRN QID PRN TP MUSCLE PAIN 02/15/21 14:45 Al Hydroxide/Mg Hydroxide (Mylanta Plus Xs) 15 ml PRN AFTMEALHC PRN PO DYSPEPSIA 02/15/21 14:45 Magnesium Hydroxide (Milk Of Magnesia) 2,400 mg PRN QHS PRN PO CONSTIPATION 02/15/21 14:45 Influenza Virus Vaccine Quadrival (Flulaval Quad [id number] Syringe) 0.5 ml ONCE ONCE VAX IM 02/16/21 09:00 02/16/21 09:01 DC 02/16/21 09:40 Glipizide (Glucotrol) 2.5 mg DAILY PO 02/16/21 09:00 02/22/21 09:05 Lisinopril (Prinivil) 10 mg HS PO 02/15/21 21:00 02/22/21 20:29 Metoprolol Tartrate (Lopressor) 12.5 mg BID PO 02/15/21 21:00 02/22/21 20:29 Trazodone HCl (Desyrel) 50 mg QHS PO 02/15/21 21:00 02/22/21 20:28 Venlafaxine HCl (Effexor) 75 mg DAILY PO 02/16/21 09:00 02/22/21 09:05 Atorvastatin Calcium (Lipitor) 40 mg QHS PO 02/15/21 21:00 02/22/21 20:29 Quetiapine Fumarate (SEROquel) 12.5 mg QHS PO 02/16/21 21:00 02/22/21 20:31 I have reviewed the current psychotropics carefully including drug interactions. Risk benefit ratio favors no change other than as noted in my dictated progress note. 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
[2021-02-23 06:04] VITALS: BP 93/58
[2021-02-23] MEDS: VENLAFAXINE 75 MG TABLET. PO SCH (08:42)
[2021-02-23] MEDS: glipiZIDE 5 MG TABLET PO SCH (08:42)
[2021-02-23] MEDS: METOPROLOL TART IMMED RELEASE 25 MG TABLET. PO SCH ×2 (08:42→20:40)
[2021-02-23 15:19] VITALS: BP 144/83
[2021-02-23] MEDS: LISINOPRIL 10 MG TABLET PO SCH (20:40)
[2021-02-23] MEDS: ATORVASTATIN CALCIUM 20 MG TABLET PO SCH (20:40)
[2021-02-23] MEDS: traZODone 50 MG TABLET. PO SCH (20:40)
[2021-02-23] MEDS: QUEtiapine 25 MG TABLET. PO SCH (20:41)
--- NOTE | 2021-02-23 22:12 | PDOC ---
Exam Note: Leighton Note: Please also refer to the separate dictated note~for this date of service dictated separately.~Patient seen individually. Discussed the patient with Nursing staff reviewed the chart.~Reviewed interim history and current functioning. Reviewed vital signs,~Labs/ Radiology~and current medications noted below. Continue current treatment with the changes noted in the dictated addendum note Assessment: Vital Signs/I&O: Vital Signs Date Time Temp Pulse Resp B/P (MAP) Pulse Ox O2 Delivery O2 Flow Rate FiO2 02/23/21 20:40 71 144/83 02/23/21 15:19 98.0 17 97 02/17/21 15:39 Room Air I & O 02/22/21 02/22/21 02/23/21 15:00 23:00 07:00 Intake Total 830 ml 580 ml Balance 830 ml 580 ml Current Medications: Meds: Current Medications Medications (Trade) Dose Ordered Sig/Manasa Route PRN Reason Start Time Stop Time Status Last Admin Dose Admin Acetaminophen (Tylenol) 650 mg PRN Q6HRS PRN PO MILD PAIN / TEMP > 100.3'F 02/15/21 14:45 Multi-Ingredient Ointment (Analgesic [place]) 1 anibal PRN QID PRN TP MUSCLE PAIN 02/15/21 14:45 Al Hydroxide/Mg Hydroxide (Mylanta Plus Xs) 15 ml PRN AFTMEALHC PRN PO DYSPEPSIA 02/15/21 14:45 Magnesium Hydroxide (Milk Of Magnesia) 2,400 mg PRN QHS PRN PO CONSTIPATION 02/15/21 14:45 Influenza Virus Vaccine Quadrival (Flulaval Quad [id number] Syringe) 0.5 ml ONCE ONCE VAX IM 02/16/21 09:00 02/16/21 09:01 DC 02/16/21 09:40 Glipizide (Glucotrol) 2.5 mg DAILY PO 02/16/21 09:00 02/23/21 08:42 Lisinopril (Prinivil) 10 mg HS PO 02/15/21 21:00 02/23/21 20:40 Metoprolol Tartrate (Lopressor) 12.5 mg BID PO 02/15/21 21:00 02/23/21 20:40 Trazodone HCl (Desyrel) 50 mg QHS PO 02/15/21 21:00 02/23/21 20:40 Venlafaxine HCl (Effexor) 75 mg DAILY PO 02/16/21 09:00 02/23/21 08:42 Atorvastatin Calcium (Lipitor) 40 mg QHS PO 02/15/21 21:00 02/23/21 20:40 Quetiapine Fumarate (SEROquel) 12.5 mg QHS PO 02/16/21 21:00 02/23/21 20:41 I have reviewed the current psychotropics carefully including drug interactions. Risk benefit ratio favors no change other than as noted in my dictated progress note. 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
[2021-02-24 05:53] VITALS: BP 157/70
[2021-02-24] MEDS: METOPROLOL TART IMMED RELEASE 25 MG TABLET. PO SCH ×2 (08:01→20:38)
[2021-02-24] MEDS: glipiZIDE 5 MG TABLET PO SCH (08:01)
[2021-02-24] MEDS: VENLAFAXINE 75 MG TABLET. PO SCH (08:01)
--- NOTE | 2021-02-24 08:52 | PDOC ---
Exam Note: Leighton Note: This note is a late entry for 02/21/2021 covers elements not covered in my initial note. Subjective: The patient was seen individually in the evening of 02/21/2021 with Umer WOLF, discussed and reviewed the chart. The patient slept 8 hours previous night. She is exit seeking at times, confused. She was banging at the nursing station window wanting to go home. Review of Systems: No CV, , pulmonary, eye, ENT system symptoms on review. Reliability poor. Mental Status Exam: The patient is oriented to herself. Insight and judgment, recent and remote memory, attention and concentration, fund of knowledge is poor consistent with her diagnoses. Laboratory Data: Reviewed. Impression: Major depressive disorder, severe. Major neurocognitive disorder, Alzheimer, vascular with delusion, depression, behavioral disturbance. Anxiety disorder unspecified. Plan: No change from initial note. Assessment: Vital Signs/I&O: Vital Signs Date Time Temp Pulse Resp B/P (MAP) Pulse Ox O2 Delivery O2 Flow Rate FiO2 02/24/21 08:01 68 157/70 02/24/21 05:53 98.0 16 97 I & O 02/23/21 02/23/21 02/24/21 14:59 22:59 06:59 Intake Total 720 ml 360 ml Balance 720 ml 360 ml Current Medications: Meds: Current Medications Medications (Trade) Dose Ordered Sig/Manasa Route PRN Reason Start Time Stop Time Status Last Admin Dose Admin Acetaminophen (Tylenol) 650 mg PRN Q6HRS PRN PO MILD PAIN / TEMP > 100.3'F 02/15/21 14:45 Multi-Ingredient Ointment (Analgesic [place]) 1 anibal PRN QID PRN TP MUSCLE PAIN 02/15/21 14:45 Al Hydroxide/Mg Hydroxide (Mylanta Plus Xs) 15 ml PRN AFTMEALHC PRN PO DYSPEPSIA 02/15/21 14:45 Magnesium Hydroxide (Milk Of Magnesia) 2,400 mg PRN QHS PRN PO CONSTIPATION 02/15/21 14:45 Influenza Virus Vaccine Quadrival (Flulaval Quad Syringe) 0.5 ml ONCE ONCE VAX IM 02/16/21 09:00 02/16/21 09:01 DC 02/16/21 09:40 Glipizide (Glucotrol) 2.5 mg DAILY PO 02/16/21 09:00 02/24/21 08:01 Lisinopril (Prinivil) 10 mg HS PO 02/15/21 21:00 02/23/21 20:40 Metoprolol Tartrate (Lopressor) 12.5 mg BID PO 02/15/21 21:00 02/24/21 08:01 Trazodone HCl (Desyrel) 50 mg QHS PO 02/15/21 21:00 02/23/21 20:40 Venlafaxine HCl (Effexor) 75 mg DAILY PO 02/16/21 09:00 02/24/21 08:01 Atorvastatin Calcium (Lipitor) 40 mg QHS PO 02/15/21 21:00 02/23/21 20:40 Quetiapine Fumarate (SEROquel) 12.5 mg QHS PO 02/16/21 21:00 02/23/21 20:41 I have reviewed the current psychotropics carefully including drug interactions. Risk benefit ratio favors no change other than as noted in my dictated progress note. 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
--- NOTE | 2021-02-24 09:11 | PDOC ---
Exam Note: Leighton Note: This note is a late entry for 02/22/2021 covers elements not covered in my initial note. Subjective: The patient was seen individually in the evening of 02/22/2021 with Umer WOLF, discussed and reviewed the chart. The patient slept 7 hours previous night. She took her medications at night, cooperative, confused. Review of Systems: No CV, , pulmonary, eye, ENT system symptoms on review. Reliability poor. Mental Status Exam: The patient is oriented to herself. Insight and judgment, recent and remote memory, attention and concentration, fund of knowledge is poor consistent with her diagnoses. Laboratory Data: Reviewed. Impression: Major depressive disorder, severe. Major neurocognitive disorder, Alzheimer, vascular with delusion, depression, behavioral disturbance. Anxiety disorder unspecified. Plan: No change from initial note. Assessment: Vital Signs/I&O: Vital Signs Date Time Temp Pulse Resp B/P (MAP) Pulse Ox O2 Delivery O2 Flow Rate FiO2 02/24/21 08:01 68 157/70 02/24/21 05:53 98.0 16 97 I & O 02/23/21 02/23/21 02/24/21 14:59 22:59 06:59 Intake Total 720 ml 360 ml Balance 720 ml 360 ml Current Medications: Meds: Current Medications Medications (Trade) Dose Ordered Sig/Manasa Route PRN Reason Start Time Stop Time Status Last Admin Dose Admin Acetaminophen (Tylenol) 650 mg PRN Q6HRS PRN PO MILD PAIN / TEMP > 100.3'F 02/15/21 14:45 Multi-Ingredient Ointment (Analgesic [place]) 1 anibal PRN QID PRN TP MUSCLE PAIN 02/15/21 14:45 Al Hydroxide/Mg Hydroxide (Mylanta Plus Xs) 15 ml PRN AFTMEALHC PRN PO DYSPEPSIA 02/15/21 14:45 Magnesium Hydroxide (Milk Of Magnesia) 2,400 mg PRN QHS PRN PO CONSTIPATION 02/15/21 14:45 Influenza Virus Vaccine Quadrival (Flulaval Quad Syringe) 0.5 ml ONCE ONCE VAX IM 02/16/21 09:00 02/16/21 09:01 DC 02/16/21 09:40 Glipizide (Glucotrol) 2.5 mg DAILY PO 02/16/21 09:00 02/24/21 08:01 Lisinopril (Prinivil) 10 mg HS PO 02/15/21 21:00 02/23/21 20:40 Metoprolol Tartrate (Lopressor) 12.5 mg BID PO 02/15/21 21:00 02/24/21 08:01 Trazodone HCl (Desyrel) 50 mg QHS PO 02/15/21 21:00 02/23/21 20:40 Venlafaxine HCl (Effexor) 75 mg DAILY PO 02/16/21 09:00 02/24/21 08:01 Atorvastatin Calcium (Lipitor) 40 mg QHS PO 02/15/21 21:00 02/23/21 20:40 Quetiapine Fumarate (SEROquel) 12.5 mg QHS PO 02/16/21 21:00 02/23/21 20:41 I have reviewed the current psychotropics carefully including drug interactions. Risk benefit ratio favors no change other than as noted in my dictated progress note. 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
[2021-02-24 10:24] LABS: BASO % 0 % (0-3); EOS % 1 % (0-3); HEMATOCRIT 40.6 % (36.0-47.0); HEMOGLOBIN 13.4 g/dL (12.0-15.5); LYMPH # 1.5 x10^3/uL (1.0-4.8); LYMPH % 25 % (24-48); MEAN CORPUSCULAR HEMOGLOBIN 30 pg (25-35); MEAN CORPUSCULAR HGB CONC 33 g/dL (31-37); MEAN CORPUSCULAR VOLUME 90 fL (79-100); MONO # 0.4 x10^3/uL (0.0-1.1); MONO % 6 % (0-9); NEUT # 4.1 x10^3uL (1.8-7.7); NEUT % 68 % (31-73); PLATELET COUNT 208 x10^3/uL (140-400); RED BLOOD COUNT 4.51 x10^6/uL (3.50-5.40); RED CELL DISTRIBUTION WIDTH 14.6 % (11.5-14.5)
[2021-02-24 10:29] LABS: ALBUMIN 3.6 g/dL (3.4-5.0); ALBUMIN/GLOBULIN RATIO 1.2 (1.0-1.7); GFR 54.2; POTASSIUM 4.1 mmol/L (3.5-5.1); TOTAL BILIRUBIN 0.4 mg/dL (0.2-1.0); TOTAL PROTEIN 6.6 g/dL (6.4-8.2)
[2021-02-24 15:58] VITALS: BP 148/60
[2021-02-24] MEDS: ATORVASTATIN CALCIUM 20 MG TABLET PO SCH (20:38)
[2021-02-24] MEDS: LISINOPRIL 10 MG TABLET PO SCH (20:39)
[2021-02-24] MEDS: QUEtiapine 25 MG TABLET. PO SCH (20:39)
[2021-02-24] MEDS: traZODone 50 MG TABLET. PO SCH (20:39)
--- NOTE | 2021-02-24 21:58 | PDOC ---
Exam Note: Leighton Note: Please also refer to the separate dictated note~for this date of service dictated separately.~Patient seen individually. Discussed the patient with Nursing staff reviewed the chart.~Reviewed interim history and current functioning. Reviewed vital signs,~Labs/ Radiology~and current medications noted below. Continue current treatment with the changes noted in the dictated addendum note Assessment: Vital Signs/I&O: Vital Signs Date Time Temp Pulse Resp B/P (MAP) Pulse Ox O2 Delivery O2 Flow Rate FiO2 02/24/21 20:39 82 148/60 02/24/21 15:58 97.6 18 95 I & O 02/23/21 02/23/21 02/24/21 15:00 23:00 07:00 Intake Total 720 ml 360 ml Balance 720 ml 360 ml Labs: Laboratory Tests Test 02/24/21 09:55 White Blood Count 6.0 x10^3/uL (4.0-11.0) Red Blood Count 4.51 x10^6/uL (3.50-5.40) Hemoglobin 13.4 g/dL (12.0-15.5) Hematocrit 40.6 % (36.0-47.0) Mean Corpuscular Volume 90 fL (79-100) Mean Corpuscular Hemoglobin 30 pg (25-35) Mean Corpuscular Hemoglobin Concent 33 g/dL (31-37) Red Cell Distribution Width 14.6 % (11.5-14.5) H Platelet Count 208 x10^3/uL (140-400) Neutrophils (%) (Auto) 68 % (31-73) Lymphocytes (%) (Auto) 25 % (24-48) Monocytes (%) (Auto) 6 % (0-9) Eosinophils (%) (Auto) 1 % (0-3) Basophils (%) (Auto) 0 % (0-3) Neutrophils # (Auto) 4.1 x10^3uL (1.8-7.7) Lymphocytes # (Auto) 1.5 x10^3/uL (1.0-4.8) Monocytes # (Auto) 0.4 x10^3/uL (0.0-1.1) Eosinophils # (Auto) 0.0 x10^3/uL (0.0-0.7) Basophils # (Auto) 0.0 x10^3/uL (0.0-0.2) Sodium Level 140 mmol/L (136-145) Potassium Level 4.1 mmol/L (3.5-5.1) Chloride Level 104 mmol/L (98-107) Carbon Dioxide Level 30 mmol/L (21-32) Anion Gap 6 (6-14) Blood Urea Nitrogen 21 mg/dL (7-20) H Creatinine 1.0 mg/dL (0.6-1.0) Estimated GFR (Cockcroft-Gault) 54.2 BUN/Creatinine Ratio 21 (6-20) H Glucose Level 189 mg/dL (70-99) H Calcium Level 9.0 mg/dL (8.5-10.1) Total Bilirubin 0.4 mg/dL (0.2-1.0) Aspartate Amino Transferase (AST) 26 U/L (15-37) Alanine Aminotransferase (ALT) 43 U/L (14-59) Alkaline Phosphatase 55 U/L (46-116) Total Protein 6.6 g/dL (6.4-8.2) Albumin 3.6 g/dL (3.4-5.0) Albumin/Globulin Ratio 1.2 (1.0-1.7) Current Medications: Meds: Laboratory Tests Test 02/24/21 09:55 White Blood Count 6.0 x10^3/uL Red Blood Count 4.51 x10^6/uL Hemoglobin 13.4 g/dL Hematocrit 40.6 % Mean Corpuscular Volume 90 fL Mean Corpuscular Hemoglobin 30 pg Mean Corpuscular Hemoglobin Concent 33 g/dL Red Cell Distribution Width 14.6 % Platelet Count 208 x10^3/uL Neutrophils (%) (Auto) 68 % Lymphocytes (%) (Auto) 25 % Monocytes (%) (Auto) 6 % Eosinophils (%) (Auto) 1 % Basophils (%) (Auto) 0 % Neutrophils # (Auto) 4.1 x10^3uL Lymphocytes # (Auto) 1.5 x10^3/uL Monocytes # (Auto) 0.4 x10^3/uL Eosinophils # (Auto) 0.0 x10^3/uL Basophils # (Auto) 0.0 x10^3/uL Sodium Level 140 mmol/L Potassium Level 4.1 mmol/L Chloride Level 104 mmol/L Carbon Dioxide Level 30 mmol/L Anion Gap 6 Blood Urea Nitrogen 21 mg/dL Creatinine 1.0 mg/dL Estimated GFR (Cockcroft-Gault) 54.2 BUN/Creatinine Ratio 21 Glucose Level 189 mg/dL Calcium Level 9.0 mg/dL Total Bilirubin 0.4 mg/dL Aspartate Amino Transf (AST/SGOT) 26 U/L Alanine Aminotransferase (ALT/SGPT) 43 U/L Alkaline Phosphatase 55 U/L Total Protein 6.6 g/dL Albumin 3.6 g/dL Albumin/Globulin Ratio 1.2 Current Medications Medications (Trade) Dose Ordered Sig/Manasa Route PRN Reason Start Time Stop Time Status Last Admin Dose Admin Acetaminophen (Tylenol) 650 mg PRN Q6HRS PRN PO MILD PAIN / TEMP > 100.3'F 02/15/21 14:45 Multi-Ingredient Ointment (Analgesic [place]) 1 anibal PRN QID PRN TP MUSCLE PAIN 02/15/21 14:45 Al Hydroxide/Mg Hydroxide (Mylanta Plus Xs) 15 ml PRN AFTMEALHC PRN PO DYSPEPSIA 02/15/21 14:45 Magnesium Hydroxide (Milk Of Magnesia) 2,400 mg PRN QHS PRN PO CONSTIPATION 02/15/21 14:45 Influenza Virus Vaccine Quadrival (Flulaval Quad [id number] Syringe) 0.5 ml ONCE ONCE VAX IM 02/16/21 09:00 02/16/21 09:01 DC 02/16/21 09:40 Glipizide (Glucotrol) 2.5 mg DAILY PO 02/16/21 09:00 02/24/21 08:01 Lisinopril (Prinivil) 10 mg HS PO 02/15/21 21:00 02/24/21 20:39 Metoprolol Tartrate (Lopressor) 12.5 mg BID PO 02/15/21 21:00 02/24/21 20:38 Trazodone HCl (Desyrel) 50 mg QHS PO 02/15/21 21:00 02/24/21 20:39 Venlafaxine HCl (Effexor) 75 mg DAILY PO 02/16/21 09:00 02/24/21 08:01 Atorvastatin Calcium (Lipitor) 40 mg QHS PO 02/15/21 21:00 02/24/21 20:38 Quetiapine Fumarate (SEROquel) 12.5 mg QHS PO 02/16/21 21:00 02/24/21 20:39 I have reviewed the current psychotropics carefully including drug interactions. Risk benefit ratio favors no change other than as noted in my dictated progress note. 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
[2021-02-25 05:55] VITALS: BP 136/72
[2021-02-25] MEDS: VENLAFAXINE 75 MG TABLET. PO SCH (08:30)
[2021-02-25] MEDS: glipiZIDE 5 MG TABLET PO SCH (08:30)
[2021-02-25] MEDS: METOPROLOL TART IMMED RELEASE 25 MG TABLET. PO SCH ×2 (08:31→20:55)
--- NOTE | 2021-02-25 15:03 | TX PLAN ---
Interdisciplinary Tx Plan Admission Information Feb 15, 2021 at 13:55 Legal Status (on Admission): Voluntary DPOA/Guardian Name: Marlys Donaldson Contact Other Contact Verified Code Status: DNR Allergies: Coded Allergies: No Known Drug Allergies (Unverified , 02/15/21) Diagnoses Primary Diagnosis: MDD with psychotic features Reasons for Admission: Agitated, Sig. Change Sleep, Hallucinations, Suicidal ideation, Confusion/Disoriented, Other Problem in Patient's Words: She is not being cared for and continues to have increased hallucinations/depression. Additional Admission Comments: According to the intake, pt is SI, wants to be under [facility], insomnia, depressed, made motion of holding gun to her head, visual hallucinations, seeing dogs and people, verbal aggression. Problems Active Problems: Confusion Inactive Problems: Medication compliant Pt Strengths/Limitations Ability for [place]: Poor Cognitive Functioning/Ability: Fair Communication Skills/Ability: Fair Financial Resources: Fair Insight/Judgement: Poor Intellectual Ability: Fair Physical Health: Fair Social Skills: Fair Stability in Family: Good Stability in School/Work: Poor Verbal Skills: Fair Discharge Criteria Discharge Criteria: Able meet basic life need, Adequate arrangements @DC, Improved behavior, Improved mood/thought Preliminary Discharge Plan Preliminary DC Plan: Current Living Arrange., Other Special Precautions Fall Risk: Low Initial D/C Plan Discharge plan is unknown at this time; may need referrals for a higher level of care. Identified Discharge Needs: Concerned may need a higher level of care. Currently Utilized Resources Currently Utilized Resources/P: Primary Care Physician Neurologist Referrals Community Resources: None Identified Problems/Hx/Goals Objectives/Short-Term Goals Short Term Goals: Dec. Aggression, Dec. Outbursts, Dec. Symp. Depression, Prevent Deterioration, Promote Coping Skill Short Term Goals in Patient's: N/A Interventions/Frequency Staff Interventions/Frequency&: Psychiatrist to assess pt at least 3x per week for medication management. Social Work to assess pt at least 2x per week to identify barriers to care and discharge planning goals. Nursing to assess pt medication effects, behavior management and complete 15 minute checks daily. Encourage participation in group activities (if applicable) or 1:1 engagement based off activity dept goals. History Vocational History: Pt worked in [employer] most of her life. 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 Community Follow-up Primary Care Physician Neurologist Treatment Plan Explained Patient/Kennel Operator had this treatment plan explained to him/her as indicated by the signature below and has been given the opportunity to ask questions and make suggestions: Date: Patient/Kennel Operator Signature: Status Update Update Pt dtrs Marlys and Karo participated in treatment team via phone. Pt is eating 100% of meals and sleeping 7 hours on average per night. Pt continues to be anxious and wanders the unit with a peer. Pt is delusional this morning and informed nursing that she came from [place] this morning and it was very cold. Pt can be "snarky" towards staff at times but is redirectable. Pt has participated in two groups with minimal participation. Pt is given her medications who; however, gets them via a spoon. Pt does not chew her meds; however, she is not able to put them in her mouth when given via a medicine cup. Pt family is working towards guardianship and questioned possibility of placement; based off safety and concerns for overall health, placement will be recommended. Pt will also have a referral to Dr. Moreira for capacity testing. MOHIT will continue working with pt family. EVELYN MAYA Feb 25, 2021 15:03
[2021-02-25 16:11] VITALS: BP 132/70
[2021-02-25] MEDS: ATORVASTATIN CALCIUM 20 MG TABLET PO SCH (20:53)
[2021-02-25] MEDS: traZODone 50 MG TABLET. PO SCH (20:54)
[2021-02-25] MEDS: QUEtiapine 25 MG TABLET. PO SCH (20:54)
[2021-02-25] MEDS: LISINOPRIL 10 MG TABLET PO SCH (20:54)
--- NOTE | 2021-02-25 21:55 | PDOC ---
Exam Note: Leighton Note: Please also refer to the separate dictated note~for this date of service dictated separately.~Patient seen individually. Discussed the patient with Nursing staff reviewed the chart.~Reviewed interim history and current functioning. Reviewed vital signs,~Labs/ Radiology~and current medications noted below. Continue current treatment with the changes noted in the dictated addendum note Assessment: Vital Signs/I&O: Vital Signs Date Time Temp Pulse Resp B/P (MAP) Pulse Ox O2 Delivery O2 Flow Rate FiO2 02/25/21 20:55 69 132/70 02/25/21 16:11 98.2 18 95 I & O 02/24/21 02/24/21 02/25/21 15:00 23:00 07:00 Intake Total 820 ml 420 ml Balance 820 ml 420 ml Current Medications: Meds: Current Medications Medications (Trade) Dose Ordered Sig/Manasa Route PRN Reason Start Time Stop Time Status Last Admin Dose Admin Acetaminophen (Tylenol) 650 mg PRN Q6HRS PRN PO MILD PAIN / TEMP > 100.3'F 02/15/21 14:45 Multi-Ingredient Ointment (Analgesic [place]) 1 anibal PRN QID PRN TP MUSCLE PAIN 02/15/21 14:45 Al Hydroxide/Mg Hydroxide (Mylanta Plus Xs) 15 ml PRN AFTMEALHC PRN PO DYSPEPSIA 02/15/21 14:45 Magnesium Hydroxide (Milk Of Magnesia) 2,400 mg PRN QHS PRN PO CONSTIPATION 02/15/21 14:45 Influenza Virus Vaccine Quadrival (Flulaval Quad [id number] Syringe) 0.5 ml ONCE ONCE VAX IM 02/16/21 09:00 02/16/21 09:01 DC 02/16/21 09:40 Glipizide (Glucotrol) 2.5 mg DAILY PO 02/16/21 09:00 02/25/21 08:30 Lisinopril (Prinivil) 10 mg HS PO 02/15/21 21:00 02/25/21 20:54 Metoprolol Tartrate (Lopressor) 12.5 mg BID PO 02/15/21 21:00 02/25/21 20:55 Trazodone HCl (Desyrel) 50 mg QHS PO 02/15/21 21:00 02/25/21 20:54 Venlafaxine HCl (Effexor) 75 mg DAILY PO 02/16/21 09:00 02/25/21 08:30 Atorvastatin Calcium (Lipitor) 40 mg QHS PO 02/15/21 21:00 02/25/21 20:53 Quetiapine Fumarate (SEROquel) 12.5 mg QHS PO 02/16/21 21:00 02/25/21 20:54 I have reviewed the current psychotropics carefully including drug interactions. Risk benefit ratio favors no change other than as noted in my dictated progress note. 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
[2021-02-26 05:45] VITALS: BP 130/75
[2021-02-26] MEDS: glipiZIDE 5 MG TABLET PO SCH (08:46)
[2021-02-26] MEDS: METOPROLOL TART IMMED RELEASE 25 MG TABLET. PO SCH ×2 (08:46→20:08)
[2021-02-26] MEDS: VENLAFAXINE 75 MG TABLET. PO SCH (08:46)
--- NOTE | 2021-02-26 09:31 | PDOC ---
Exam Note: Leighton Note: This note is a late entry for 02/23/2021 covers elements not covered in my initial note. Subjective: The patient was seen individually in the evening of 02/23/2021 with Breezy WOLF, discussed and reviewed the chart. The patient slept 8 hours previous night. She follows around with another demented patient, remains confused, less anxious. No suicidal ideation. No clear psychotic symptoms. Review of Systems: No CV, , pulmonary, eye, ENT system symptoms on review. Mental Status Exam: The patient is oriented to herself. Insight and judgment, recent and remote memory, attention and concentration, fund of knowledge is poor consistent with her diagnoses. Laboratory Data: Reviewed. Impression: Major depressive disorder, severe. Major neurocognitive disorder, Alzheimer, vascular with delusion, depression, behavioral disturbance. Anxiety disorder unspecified. Plan: No change from initial note. Assessment: Vital Signs/I&O: Vital Signs Date Time Temp Pulse Resp B/P (MAP) Pulse Ox O2 Delivery O2 Flow Rate FiO2 02/26/21 08:46 68 130/75 02/26/21 05:45 97.8 20 97 Room Air I & O 02/25/21 02/25/21 02/26/21 15:00 23:00 07:00 Intake Total 840 ml 360 ml Balance 840 ml 360 ml Current Medications: Meds: Current Medications Medications (Trade) Dose Ordered Sig/Manasa Route PRN Reason Start Time Stop Time Status Last Admin Dose Admin Acetaminophen (Tylenol) 650 mg PRN Q6HRS PRN PO MILD PAIN / TEMP > 100.3'F 02/15/21 14:45 Multi-Ingredient Ointment (Analgesic [place]) 1 anibal PRN QID PRN TP MUSCLE PAIN 02/15/21 14:45 Al Hydroxide/Mg Hydroxide (Mylanta Plus Xs) 15 ml PRN AFTMEALHC PRN PO DYSPEPSIA 02/15/21 14:45 Magnesium Hydroxide (Milk Of Magnesia) 2,400 mg PRN QHS PRN PO CONSTIPATION 02/15/21 14:45 Influenza Virus Vaccine Quadrival (Flulaval Quad Syringe) 0.5 ml ONCE ONCE VAX IM 02/16/21 09:00 02/16/21 09:01 DC 02/16/21 09:40 Glipizide (Glucotrol) 2.5 mg DAILY PO 02/16/21 09:00 02/26/21 08:46 Lisinopril (Prinivil) 10 mg HS PO 02/15/21 21:00 02/25/21 20:54 Metoprolol Tartrate (Lopressor) 12.5 mg BID PO 02/15/21 21:00 02/26/21 08:46 Trazodone HCl (Desyrel) 50 mg QHS PO 02/15/21 21:00 02/25/21 20:54 Venlafaxine HCl (Effexor) 75 mg DAILY PO 02/16/21 09:00 02/26/21 08:46 Atorvastatin Calcium (Lipitor) 40 mg QHS PO 02/15/21 21:00 02/25/21 20:53 Quetiapine Fumarate (SEROquel) 12.5 mg QHS PO 02/16/21 21:00 02/25/21 20:54 I have reviewed the current psychotropics carefully including drug interactions. Risk benefit ratio favors no change other than as noted in my dictated progress note. 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
--- NOTE | 2021-02-26 10:17 | PDOC ---
Exam Note: Leighton Note: This note is a late entry for 02/24/2021 covers elements not covered in my initial note. Subjective: The patient was seen individually in the evening of 02/24/2021 with Jacqui WOLF, discussed and reviewed the chart. The patient slept 6-1/4 hours previous night. She has been wandering, anxious, compliant with medications. Previous night she was irritable with her over the telephone and calls will be supervised per nursing report. Review of Systems: No CV, , pulmonary, eye, ENT system symptoms on review. Reliability poor. Mental Status Exam: The patient is oriented to herself. Insight and judgment, recent and remote memory, attention and concentration, fund of knowledge is poor consistent with her diagnoses. Laboratory Data: Reviewed. Impression: Major depressive disorder, severe. Major neurocognitive disorder, Alzheimer, vascular with delusion, depression, behavioral disturbance. Anxiety disorder unspecified. Plan: No change from initial note. Assessment: Vital Signs/I&O: Vital Signs Date Time Temp Pulse Resp B/P (MAP) Pulse Ox O2 Delivery O2 Flow Rate FiO2 02/26/21 08:46 68 130/75 02/26/21 05:45 97.8 20 97 Room Air I & O 02/25/21 02/25/21 02/26/21 15:00 23:00 07:00 Intake Total 840 ml 360 ml Balance 840 ml 360 ml Current Medications: Meds: Current Medications Medications (Trade) Dose Ordered Sig/Manasa Route PRN Reason Start Time Stop Time Status Last Admin Dose Admin Acetaminophen (Tylenol) 650 mg PRN Q6HRS PRN PO MILD PAIN / TEMP > 100.3'F 02/15/21 14:45 Multi-Ingredient Ointment (Analgesic [place]) 1 anibal PRN QID PRN TP MUSCLE PAIN 02/15/21 14:45 Al Hydroxide/Mg Hydroxide (Mylanta Plus Xs) 15 ml PRN AFTMEALHC PRN PO DYSPEPSIA 02/15/21 14:45 Magnesium Hydroxide (Milk Of Magnesia) 2,400 mg PRN QHS PRN PO CONSTIPATION 02/15/21 14:45 Influenza Virus Vaccine Quadrival (Flulaval Quad Syringe) 0.5 ml ONCE ONCE VAX IM 02/16/21 09:00 02/16/21 09:01 DC 02/16/21 09:40 Glipizide (Glucotrol) 2.5 mg DAILY PO 02/16/21 09:00 02/26/21 08:46 Lisinopril (Prinivil) 10 mg HS PO 02/15/21 21:00 02/25/21 20:54 Metoprolol Tartrate (Lopressor) 12.5 mg BID PO 02/15/21 21:00 02/26/21 08:46 Trazodone HCl (Desyrel) 50 mg QHS PO 02/15/21 21:00 02/25/21 20:54 Venlafaxine HCl (Effexor) 75 mg DAILY PO 02/16/21 09:00 02/26/21 08:46 Atorvastatin Calcium (Lipitor) 40 mg QHS PO 02/15/21 21:00 02/25/21 20:53 Quetiapine Fumarate (SEROquel) 12.5 mg QHS PO 02/16/21 21:00 02/25/21 20:54 I have reviewed the current psychotropics carefully including drug interactions. Risk benefit ratio favors no change other than as noted in my dictated progress note. 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
[2021-02-26 16:05] VITALS: BP 168/80
[2021-02-26] MEDS: traZODone 50 MG TABLET. PO SCH (20:07)
[2021-02-26] MEDS: LISINOPRIL 10 MG TABLET PO SCH (20:08)
[2021-02-26] MEDS: ATORVASTATIN CALCIUM 20 MG TABLET PO SCH (20:09)
[2021-02-26] MEDS: QUEtiapine 25 MG TABLET. PO SCH (20:09)
--- NOTE | 2021-02-26 21:55 | PDOC ---
Exam Note: Leighton Note: Please also refer to the separate dictated note~for this date of service dictated separately.~Patient seen individually. Discussed the patient with Nursing staff reviewed the chart.~Reviewed interim history and current functioning. Reviewed vital signs,~Labs/ Radiology~and current medications noted below. Continue current treatment with the changes noted in the dictated addendum note Assessment: Vital Signs/I&O: Vital Signs Date Time Temp Pulse Resp B/P (MAP) Pulse Ox O2 Delivery O2 Flow Rate FiO2 02/26/21 20:08 77 168/80 02/26/21 16:05 97.8 18 96 02/26/21 05:45 Room Air I & O 02/25/21 02/25/21 02/26/21 15:00 23:00 07:00 Intake Total 840 ml 360 ml Balance 840 ml 360 ml Current Medications: Meds: Current Medications Medications (Trade) Dose Ordered Sig/Manasa Route PRN Reason Start Time Stop Time Status Last Admin Dose Admin Acetaminophen (Tylenol) 650 mg PRN Q6HRS PRN PO MILD PAIN / TEMP > 100.3'F 02/15/21 14:45 Multi-Ingredient Ointment (Analgesic [place]) 1 anibal PRN QID PRN TP MUSCLE PAIN 02/15/21 14:45 Al Hydroxide/Mg Hydroxide (Mylanta Plus Xs) 15 ml PRN AFTMEALHC PRN PO DYSPEPSIA 02/15/21 14:45 Magnesium Hydroxide (Milk Of Magnesia) 2,400 mg PRN QHS PRN PO CONSTIPATION 02/15/21 14:45 Influenza Virus Vaccine Quadrival (Flulaval Quad [id number] Syringe) 0.5 ml ONCE ONCE VAX IM 02/16/21 09:00 02/16/21 09:01 DC 02/16/21 09:40 Glipizide (Glucotrol) 2.5 mg DAILY PO 02/16/21 09:00 02/26/21 08:46 Lisinopril (Prinivil) 10 mg HS PO 02/15/21 21:00 02/26/21 20:08 Metoprolol Tartrate (Lopressor) 12.5 mg BID PO 02/15/21 21:00 02/26/21 20:08 Trazodone HCl (Desyrel) 50 mg QHS PO 02/15/21 21:00 02/26/21 20:07 Venlafaxine HCl (Effexor) 75 mg DAILY PO 02/16/21 09:00 02/26/21 08:46 Atorvastatin Calcium (Lipitor) 40 mg QHS PO 02/15/21 21:00 02/26/21 20:09 Quetiapine Fumarate (SEROquel) 12.5 mg QHS PO 02/16/21 21:00 02/26/21 20:09 I have reviewed the current psychotropics carefully including drug interactions. Risk benefit ratio favors no change other than as noted in my dictated progress note. 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
[2021-02-27 06:27] VITALS: BP 135/73
[2021-02-27] MEDS: VENLAFAXINE 75 MG TABLET. PO SCH (08:35)
[2021-02-27] MEDS: glipiZIDE 5 MG TABLET PO SCH (08:36)
[2021-02-27] MEDS: METOPROLOL TART IMMED RELEASE 25 MG TABLET. PO SCH ×2 (08:38→21:00)
[2021-02-27 15:49] VITALS: BP 126/67
[2021-02-27] MEDS: LISINOPRIL 10 MG TABLET PO SCH (21:00)
[2021-02-27] MEDS: ATORVASTATIN CALCIUM 20 MG TABLET PO SCH (21:00)
[2021-02-27] MEDS: traZODone 50 MG TABLET. PO SCH (21:00)
[2021-02-27] MEDS: QUEtiapine 25 MG TABLET. PO SCH (21:00)
--- NOTE | 2021-02-28 00:39 | PN ---
DATE: 02/26/2021 PSYCHIATRIC PROGRESS NOTE This late entry 02/26/2021 covers the elements not covered in my initial note. SUBJECTIVE: I met with the patient in the evening. Discussed with Nivia Paul RN. The patient slept 6-1/2 hours previous night. She has been irritable on the telephone with her . Her daughter STEPHAN is putting some restrictions on her calling. REVIEW OF SYSTEMS: No CV, , pulmonary, eye, ENT system symptoms on review. Reliability poor. MENTAL STATUS EXAMINATION: Oriented to herself. Insight, judgment, recent and remote memory, attention, concentration, fund of knowledge, poor consistent with her diagnosis mentioned in my initial note. IMPRESSION: Major neurocognitive disorder, Alzheimer, vascular with delusion, depression, behavioral disturbance and history of major depressive disorder. PLAN: Continue psychotropics from initial note including Effexor, trazodone, Seroquel __ 12.5 mg [address]time[address] ROMAN DR: Anita TID: [id number]
--- NOTE | 2021-02-28 01:16 | PN ---
DATE: 02/25/2021 PSYCHIATRIC PROGRESS NOTE SUBJECTIVE: The patient was seen on rounds evening of 02/25, discussed with LUCIANO Andres in the evening. Earlier in the day, the patient was reviewed at treatment team meeting with entire team and patient's 2 daughters Marlys and Karo. She had a flu short 01/17. She slept 7-1/2 hours previous evening. Remains confused. REVIEW OF SYSTEMS: No CV, , pulmonary, eye, ENT system symptoms on review. Reliability poor. MENTAL STATUS EXAMINATION: Oriented to herself. Insight, judgment, recent and remote memory, attention, concentration, fund of knowledge poor consistent with her diagnosis. She has attended 2 activity therapy groups talking about having just come from the [facility]. Takes medications in a spoon. Family is pursuing guardianship and we will have neuropsychological testing by Dr. Moreira to assist with this. No CV, , pulmonary, eye, ENT system symptoms on review. MENTAL STATUS EXAMINATION: Oriented to herself. Insight, judgment, recent and remote memory, attention, concentration, fund of knowledge poor consistent with her diagnosis. The patient has attended 2 groups in the past week. IMPRESSION: Major depressive disorder with psychotic features, major neurocognitive disorder, Alzheimer, vascular with delusion, or depression. Rest unchanged. PLAN: Continue psychotropics as unchanged, slept 7-1/2 hours previous night. Adjust further as clinically indicated. KONRAD/CARIDAD DR: KONRAD/madhu TID: [id number]
[2021-02-28 05:41] VITALS: BP 105/63
[2021-02-28] MEDS: glipiZIDE 5 MG TABLET PO SCH (07:10)
[2021-02-28] MEDS: VENLAFAXINE 75 MG TABLET. PO SCH (07:11)
--- NOTE | 2021-02-28 08:37 | PDOC ---
Exam Note: Leighton Note: Late entry for 02/27/2021.Please also refer to the separate dictated note~for this date of service dictated separately.~Patient seen individually. Discussed the patient with Nursing staff reviewed the chart.~Reviewed interim history and current functioning. Reviewed vital signs,~Labs/ Radiology~and current medica tions noted below. Continue current treatment with the changes noted in the dictated addendum note Assessment: Vital Signs/I&O: Vital Signs Date Time Temp Pulse Resp B/P (MAP) Pulse Ox O2 Delivery O2 Flow Rate FiO2 02/28/21 05:41 97.3 64 18 105/63 (77) 98 02/26/21 05:45 Room Air I & O 02/27/21 02/27/21 02/28/21 15:00 23:00 07:00 Intake Total 720 ml 360 ml Balance 720 ml 360 ml Current Medications: I have reviewed the current psychotropics carefully including drug interactions. Risk benefit ratio favors no change other than as noted in my dictated progress note. 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
[2021-02-28] MEDS: METOPROLOL TART IMMED RELEASE 25 MG TABLET. PO SCH ×2 (09:00→20:35)
[2021-02-28 15:31] VITALS: BP 111/68
[2021-02-28] MEDS: QUEtiapine 25 MG TABLET. PO SCH (20:28)
[2021-02-28] MEDS: traZODone 50 MG TABLET. PO SCH (20:28)
[2021-02-28] MEDS: LISINOPRIL 10 MG TABLET PO SCH (20:28)
[2021-02-28] MEDS: ATORVASTATIN CALCIUM 20 MG TABLET PO SCH (20:30)
--- NOTE | 2021-02-28 21:34 | PDOC ---
Exam Note: Leighton Note: Please also refer to the separate dictated note~for this date of service dictated separately.~Patient seen individually. Discussed the patient with Nursing staff reviewed the chart.~Reviewed interim history and current functioning. Reviewed vital signs,~Labs/ Radiology~and current medications noted below. Continue current treatment with the changes noted in the dictated addendum note Assessment: Vital Signs/I&O: Vital Signs Date Time Temp Pulse Resp B/P (MAP) Pulse Ox O2 Delivery O2 Flow Rate FiO2 02/28/21 20:35 77 111/68 02/28/21 15:31 98.3 18 96 Nasal Cannula I & O 02/27/21 02/27/21 02/28/21 15:00 23:00 07:00 Intake Total 720 ml 360 ml Balance 720 ml 360 ml Current Medications: Meds: Current Medications Medications (Trade) Dose Ordered Sig/Manasa Route PRN Reason Start Time Stop Time Status Last Admin Dose Admin Acetaminophen (Tylenol) 650 mg PRN Q6HRS PRN PO MILD PAIN / TEMP > 100.3'F 02/15/21 14:45 Multi-Ingredient Ointment (Analgesic [place]) 1 anibal PRN QID PRN TP MUSCLE PAIN 02/15/21 14:45 Al Hydroxide/Mg Hydroxide (Mylanta Plus Xs) 15 ml PRN AFTMEALHC PRN PO DYSPEPSIA 02/15/21 14:45 Magnesium Hydroxide (Milk Of Magnesia) 2,400 mg PRN QHS PRN PO CONSTIPATION 02/15/21 14:45 Influenza Virus Vaccine Quadrival (Flulaval Quad [id number] Syringe) 0.5 ml ONCE ONCE VAX IM 02/16/21 09:00 02/16/21 09:01 DC 02/16/21 09:40 Glipizide (Glucotrol) 2.5 mg DAILY PO 02/16/21 09:00 02/28/21 07:10 Lisinopril (Prinivil) 10 mg HS PO 02/15/21 21:00 02/28/21 20:28 Metoprolol Tartrate (Lopressor) 12.5 mg BID PO 02/15/21 21:00 02/28/21 20:35 Trazodone HCl (Desyrel) 50 mg QHS PO 02/15/21 21:00 02/28/21 20:28 Venlafaxine HCl (Effexor) 75 mg DAILY PO 02/16/21 09:00 02/28/21 07:11 Atorvastatin Calcium (Lipitor) 40 mg QHS PO 02/15/21 21:00 02/28/21 20:30 Quetiapine Fumarate (SEROquel) 12.5 mg QHS PO 02/16/21 21:00 02/28/21 20:28 Olanzapine (ZyPREXA ZYDIS) 2.5 mg PRN Q2HR PRN PO PSYCHOSIS 02/27/21 17:00 I have reviewed the current psychotropics carefully including drug interactions. Risk benefit ratio favors no change other than as noted in my dictated progress note. 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
[2021-03-01 06:31] VITALS: BP 173/70
[2021-03-01] MEDS: glipiZIDE 5 MG TABLET PO SCH (08:15)
[2021-03-01] MEDS: VENLAFAXINE 75 MG TABLET. PO SCH (08:15)
[2021-03-01] MEDS: METOPROLOL TART IMMED RELEASE 25 MG TABLET. PO SCH ×2 (08:17→20:05)
[2021-03-01 15:33] VITALS: BP 119/65
[2021-03-01] MEDS: QUEtiapine 25 MG TABLET. PO SCH (20:03)
[2021-03-01] MEDS: ATORVASTATIN CALCIUM 20 MG TABLET PO SCH (20:04)
[2021-03-01] MEDS: LISINOPRIL 10 MG TABLET PO SCH (20:04)
[2021-03-01] MEDS: traZODone 50 MG TABLET. PO SCH (20:04)
--- NOTE | 2021-03-01 21:49 | PDOC ---
Exam Note: Leighton Note: Please also refer to the separate dictated note~for this date of service dictated separately.~Patient seen individually. Discussed the patient with Nursing staff reviewed the chart.~Reviewed interim history and current functioning. Reviewed vital signs,~Labs/ Radiology~and current medications noted below. Continue current treatment with the changes noted in the dictated addendum note Assessment: Vital Signs/I&O: Vital Signs Date Time Temp Pulse Resp B/P (MAP) Pulse Ox O2 Delivery O2 Flow Rate FiO2 03/01/21 20:05 77 119/65 03/01/21 15:33 98.0 17 98 03/01/21 06:31 Nasal Cannula I & O 0 02/28/21 02/28/21 03/01/21 15:00 23:00 07:00 Intake Total 720 ml 360 ml Balance 720 ml 360 ml Current Medications: Meds: Current Medications Medications (Trade) Dose Ordered Sig/Manasa Route PRN Reason Start Time Stop Time Status Last Admin Dose Admin Acetaminophen (Tylenol) 650 mg PRN Q6HRS PRN PO MILD PAIN / TEMP > 100.3'F 02/15/21 14:45 Multi-Ingredient Ointment (Analgesic [place]) 1 anibal PRN QID PRN TP MUSCLE PAIN 02/15/21 14:45 Al Hydroxide/Mg Hydroxide (Mylanta Plus Xs) 15 ml PRN AFTMEALHC PRN PO DYSPEPSIA 02/15/21 14:45 Magnesium Hydroxide (Milk Of Magnesia) 2,400 mg PRN QHS PRN PO CONSTIPATION 02/15/21 14:45 Influenza Virus Vaccine Quadrival (Flulaval Quad [id number] Syringe) 0.5 ml ONCE ONCE VAX IM 02/16/21 09:00 02/16/21 09:01 DC 02/16/21 09:40 Glipizide (Glucotrol) 2.5 mg DAILY PO 02/16/21 09:00 03/01/21 08:15 Lisinopril (Prinivil) 10 mg HS PO 02/15/21 21:00 03/01/21 20:04 Metoprolol Tartrate (Lopressor) 12.5 mg BID PO 02/15/21 21:00 03/01/21 20:05 Trazodone HCl (Desyrel) 50 mg QHS PO 02/15/21 21:00 03/01/21 20:04 Venlafaxine HCl (Effexor) 75 mg DAILY PO 02/16/21 09:00 03/01/21 08:15 Atorvastatin Calcium (Lipitor) 40 mg QHS PO 02/15/21 21:00 03/01/21 20:04 Quetiapine Fumarate (SEROquel) 12.5 mg QHS PO 02/16/21 21:00 03/01/21 20:03 Olanzapine (ZyPREXA ZYDIS) 2.5 mg PRN Q2HR PRN PO PSYCHOSIS 02/27/21 17:00 I have reviewed the current psychotropics carefully including drug interactions. Risk benefit ratio favors no change other than as noted in my dictated progress note. Diagnosis: Problems: (1) Major depressive disorder with psychotic features (2) Impulse control disorder, unspecified (3) Anxiety disorder, unspecified (4) Dementia, vascular, with depression (5) Dementia, vascular, with delusions (6) Dementia in Alzheimer's disease with depression (7) Major neurocognitive disorder (8) Dementia in Alzheimer's disease with early onset with behavioral disturbance MARIA LUISA SMITH MD Mar 01, 2021 21:49
[2021-03-02 06:19] VITALS: BP 140/64
[2021-03-02] MEDS: glipiZIDE 5 MG TABLET PO SCH (08:22)
[2021-03-02] MEDS: VENLAFAXINE 75 MG TABLET. PO SCH (08:22)
[2021-03-02] MEDS: METOPROLOL TART IMMED RELEASE 25 MG TABLET. PO SCH ×2 (08:23→20:27)
[2021-03-02 16:08] VITALS: BP 147/81
[2021-03-02] MEDS: QUEtiapine 25 MG TABLET. PO SCH (20:28)
[2021-03-02] MEDS: traZODone 50 MG TABLET. PO SCH (20:28)
[2021-03-02] MEDS: LISINOPRIL 10 MG TABLET PO SCH (20:29)
[2021-03-02] MEDS: ATORVASTATIN CALCIUM 20 MG TABLET PO SCH (20:29)
[2021-03-03 06:19] VITALS: BP 120/65
[2021-03-03 08:02] LABS: BASO % 0 % (0-3); EOS # 0.1 x10^3/uL (0.0-0.7); EOS % 1 % (0-3); HEMATOCRIT 44.5 % (36.0-47.0); HEMOGLOBIN 14.7 g/dL (12.0-15.5); LYMPH # 2.6 x10^3/uL (1.0-4.8); LYMPH % 33 % (24-48); MEAN CORPUSCULAR HEMOGLOBIN 30 pg (25-35); MEAN CORPUSCULAR HGB CONC 33 g/dL (31-37); MEAN CORPUSCULAR VOLUME 91 fL (79-100); MONO # 0.7 x10^3/uL (0.0-1.1); MONO % 8 % (0-9); NEUT # 4.6 x10^3uL (1.8-7.7); NEUT % 58 % (31-73); PLATELET COUNT 234 x10^3/uL (140-400); RED CELL DISTRIBUTION WIDTH 14.8 % (11.5-14.5); WHITE BLOOD COUNT 7.9 x10^3/uL (4.0-11.0)
[2021-03-03 08:12] LABS: ALBUMIN 3.7 g/dL (3.4-5.0); ALBUMIN/GLOBULIN RATIO 1.2 (1.0-1.7); CALCIUM 9.1 mg/dL (8.5-10.1); CREATININE 0.9 mg/dL (0.6-1.0); POTASSIUM 4.1 mmol/L (3.5-5.1); TOTAL BILIRUBIN 0.6 mg/dL (0.2-1.0); TOTAL PROTEIN 6.9 g/dL (6.4-8.2)
[2021-03-03] MEDS: glipiZIDE 5 MG TABLET PO SCH (08:21)
[2021-03-03] MEDS: VENLAFAXINE 75 MG TABLET. PO SCH (08:21)
[2021-03-03] MEDS: METOPROLOL TART IMMED RELEASE 25 MG TABLET. PO SCH ×2 (08:21→19:51)
--- NOTE | 2021-03-03 10:01 | PDOC ---
Exam Note: Leighton Note: This note is a late entry for 02/27/2021 covers elements not covered in my initial note. Subjective: The patient was seen individually in the evening of 02/27/2021 with Jessica WOLF, discussed and reviewed the chart. The patient slept 7-1/4 hours previous night. She has been irritable with her on the telephone and daughters are requesting this be monitored. She was redirectable, wanders the hallways. Review of Systems: No CV, , pulmonary, eye, ENT system symptoms on review. Reliability poor. Mental Status Exam: The patient is oriented to herself. Insight and judgment, recent and remote memory, attention and concentration, fund of knowledge is poor consistent with her diagnoses. Laboratory Data: Reviewed. Impression: Major depressive disorder, severe. Major neurocognitive disorder, Alzheimer, vascular with delusion, depression, behavioral disturbance. Anxiety disorder unspecified. Plan: Continue current psychotropics. On reviewing her medications prior to admission, she was on Zyprexa p.r.n. and we will go ahead and reorder it. Continue rest unchanged. Assessment: Vital Signs/I&O: Vital Signs Date Time Temp Pulse Resp B/P (MAP) Pulse Ox O2 Delivery O2 Flow Rate FiO2 03/03/21 08:21 59 120/65 03/03/21 06:19 97.2 18 96 Room Air I & O 03/02/21 03/02/21 03/03/21 14:59 22:59 06:59 Intake Total 960 ml 480 ml Balance 960 ml 480 ml Labs: Laboratory Tests Test 03/03/21 07:45 White Blood Count 7.9 x10^3/uL (4.0-11.0) Red Blood Count 4.90 x10^6/uL (3.50-5.40) Hemoglobin 14.7 g/dL (12.0-15.5) Hematocrit 44.5 % (36.0-47.0) Mean Corpuscular Volume 91 fL (79-100) Mean Corpuscular Hemoglobin 30 pg (25-35) Mean Corpuscular Hemoglobin Concent 33 g/dL (31-37) Red Cell Distribution Width 14.8 % (11.5-14.5) H Platelet Count 234 x10^3/uL (140-400) Neutrophils (%) (Auto) 58 % (31-73) Lymphocytes (%) (Auto) 33 % (24-48) Monocytes (%) (Auto) 8 % (0-9) Eosinophils (%) (Auto) 1 % (0-3) Basophils (%) (Auto) 0 % (0-3) Neutrophils # (Auto) 4.6 x10^3uL (1.8-7.7) Lymphocytes # (Auto) 2.6 x10^3/uL (1.0-4.8) Monocytes # (Auto) 0.7 x10^3/uL (0.0-1.1) Eosinophils # (Auto) 0.1 x10^3/uL (0.0-0.7) Basophils # (Auto) 0.0 x10^3/uL (0.0-0.2) Sodium Level 140 mmol/L (136-145) Potassium Level 4.1 mmol/L (3.5-5.1) Chloride Level 103 mmol/L (98-107) Carbon Dioxide Level 31 mmol/L (21-32) Anion Gap 6 (6-14) Blood Urea Nitrogen 26 mg/dL (7-20) H Creatinine 0.9 mg/dL (0.6-1.0) Estimated GFR (Cockcroft-Gault) 61.0 BUN/Creatinine Ratio 29 (6-20) H Glucose Level 137 mg/dL (70-99) H Calcium Level 9.1 mg/dL (8.5-10.1) Total Bilirubin 0.6 mg/dL (0.2-1.0) Aspartate Amino Transferase (AST) 21 U/L (15-37) Alanine Aminotransferase (ALT) 38 U/L (14-59) Alkaline Phosphatase 53 U/L (46-116) Total Protein 6.9 g/dL (6.4-8.2) Albumin 3.7 g/dL (3.4-5.0) Albumin/Globulin Ratio 1.2 (1.0-1.7) Current Medications: Meds: Laboratory Tests Test 03/03/21 07:45 White Blood Count 7.9 x10^3/uL Red Blood Count 4.90 x10^6/uL Hemoglobin 14.7 g/dL Hematocrit 44.5 % Mean Corpuscular Volume 91 fL Mean Corpuscular Hemoglobin 30 pg Mean Corpuscular Hemoglobin Concent 33 g/dL Red Cell Distribution Width 14.8 % Platelet Count 234 x10^3/uL Neutrophils (%) (Auto) 58 % Lymphocytes (%) (Auto) 33 % Monocytes (%) (Auto) 8 % Eosinophils (%) (Auto) 1 % Basophils (%) (Auto) 0 % Neutrophils # (Auto) 4.6 x10^3uL Lymphocytes # (Auto) 2.6 x10^3/uL Monocytes # (Auto) 0.7 x10^3/uL Eosinophils # (Auto) 0.1 x10^3/uL Basophils # (Auto) 0.0 x10^3/uL Sodium Level 140 mmol/L Potassium Level 4.1 mmol/L Chloride Level 103 mmol/L Carbon Dioxide Level 31 mmol/L Anion Gap 6 Blood Urea Nitrogen 26 mg/dL Creatinine 0.9 mg/dL Estimated GFR (Cockcroft-Gault) 61.0 BUN/Creatinine Ratio 29 Glucose Level 137 mg/dL Calcium Level 9.1 mg/dL Total Bilirubin 0.6 mg/dL Aspartate Amino Transf (AST/SGOT) 21 U/L Alanine Aminotransferase (ALT/SGPT) 38 U/L Alkaline Phosphatase 53 U/L Total Protein 6.9 g/dL Albumin 3.7 g/dL Albumin/Globulin Ratio 1.2 Current Medications Medications (Trade) Dose Ordered Sig/Manasa Route PRN Reason Start Time Stop Time Status Last Admin Dose Admin Acetaminophen (Tylenol) 650 mg PRN Q6HRS PRN PO MILD PAIN / TEMP > 100.3'F 02/15/21 14:45 Multi-Ingredient Ointment (Analgesic [place]) 1 anibal PRN QID PRN TP MUSCLE PAIN 02/15/21 14:45 Al Hydroxide/Mg Hydroxide (Mylanta Plus Xs) 15 ml PRN AFTMEALHC PRN PO DYSPEPSIA 02/15/21 14:45 Magnesium Hydroxide (Milk Of Magnesia) 2,400 mg PRN QHS PRN PO CONSTIPATION 02/15/21 14:45 Influenza Virus Vaccine Quadrival (Flulaval Quad Syringe) 0.5 ml ONCE ONCE VAX IM 02/16/21 09:00 02/16/21 09:01 DC 02/16/21 09:40 Glipizide (Glucotrol) 2.5 mg DAILY PO 02/16/21 09:00 03/03/21 08:21 Lisinopril (Prinivil) 10 mg HS PO 02/15/21 21:00 03/02/21 20:29 Metoprolol Tartrate (Lopressor) 12.5 mg BID PO 02/15/21 21:00 03/03/21 08:21 Trazodone HCl (Desyrel) 50 mg QHS PO 02/15/21 21:00 03/02/21 20:28 Venlafaxine HCl (Effexor) 75 mg DAILY PO 02/16/21 09:00 03/03/21 08:21 Atorvastatin Calcium (Lipitor) 40 mg QHS PO 02/15/21 21:00 03/02/21 20:29 Quetiapine Fumarate (SEROquel) 12.5 mg QHS PO 02/16/21 21:00 03/02/21 20:28 Olanzapine (ZyPREXA ZYDIS) 2.5 mg PRN Q2HR PRN PO PSYCHOSIS 02/27/21 17:00 I have reviewed the current psychotropics carefully including drug interactions. Risk benefit ratio favors no change other than as noted in my dictated progress note. 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
--- NOTE | 2021-03-03 10:16 | PDOC ---
Exam Note: Leighton Note: This note is a late entry for 02/28/2021 covers elements not covered in my initial note. Subjective: The patient was seen individually in the evening of 02/28/2021 with Eh WOLF, discussed and reviewed the chart. The patient slept 6 hours previous night. She has been confused, pleasant, cooperative. She had telephone calls with her and we monitored per the daughters. Review of Systems: No CV, , pulmonary, eye, ENT system symptoms on review. Reliability poor. Mental Status Exam: The patient is oriented to herself. Insight and judgment, recent and remote memory, attention and concentration, fund of knowledge is poor consistent with her diagnoses. Laboratory Data: Reviewed. Impression: Major depressive disorder, severe. Major neurocognitive disorder, Alzheimer, vascular with delusion, depression, behavioral disturbance. Anxiety disorder unspecified. Plan: Continue current psychotropics. Assessment: Vital Signs/I&O: Vital Signs Date Time Temp Pulse Resp B/P (MAP) Pulse Ox O2 Delivery O2 Flow Rate FiO2 03/03/21 08:21 59 120/65 03/03/21 06:19 97.2 18 96 Room Air I & O 03/02/21 03/02/21 03/03/21 15:00 23:00 07:00 Intake Total 960 ml 480 ml Balance 960 ml 480 ml Labs: Laboratory Tests Test 03/03/21 07:45 White Blood Count 7.9 x10^3/uL (4.0-11.0) Red Blood Count 4.90 x10^6/uL (3.50-5.40) Hemoglobin 14.7 g/dL (12.0-15.5) Hematocrit 44.5 % (36.0-47.0) Mean Corpuscular Volume 91 fL (79-100) Mean Corpuscular Hemoglobin 30 pg (25-35) Mean Corpuscular Hemoglobin Concent 33 g/dL (31-37) Red Cell Distribution Width 14.8 % (11.5-14.5) H Platelet Count 234 x10^3/uL (140-400) Neutrophils (%) (Auto) 58 % (31-73) Lymphocytes (%) (Auto) 33 % (24-48) Monocytes (%) (Auto) 8 % (0-9) Eosinophils (%) (Auto) 1 % (0-3) Basophils (%) (Auto) 0 % (0-3) Neutrophils # (Auto) 4.6 x10^3uL (1.8-7.7) Lymphocytes # (Auto) 2.6 x10^3/uL (1.0-4.8) Monocytes # (Auto) 0.7 x10^3/uL (0.0-1.1) Eosinophils # (Auto) 0.1 x10^3/uL (0.0-0.7) Basophils # (Auto) 0.0 x10^3/uL (0.0-0.2) Sodium Level 140 mmol/L (136-145) Potassium Level 4.1 mmol/L (3.5-5.1) Chloride Level 103 mmol/L (98-107) Carbon Dioxide Level 31 mmol/L (21-32) Anion Gap 6 (6-14) Blood Urea Nitrogen 26 mg/dL (7-20) H Creatinine 0.9 mg/dL (0.6-1.0) Estimated GFR (Cockcroft-Gault) 61.0 BUN/Creatinine Ratio 29 (6-20) H Glucose Level 137 mg/dL (70-99) H Calcium Level 9.1 mg/dL (8.5-10.1) Total Bilirubin 0.6 mg/dL (0.2-1.0) Aspartate Amino Transferase (AST) 21 U/L (15-37) Alanine Aminotransferase (ALT) 38 U/L (14-59) Alkaline Phosphatase 53 U/L (46-116) Total Protein 6.9 g/dL (6.4-8.2) Albumin 3.7 g/dL (3.4-5.0) Albumin/Globulin Ratio 1.2 (1.0-1.7) Current Medications: Meds: Laboratory Tests Test 03/03/21 07:45 White Blood Count 7.9 x10^3/uL Red Blood Count 4.90 x10^6/uL Hemoglobin 14.7 g/dL Hematocrit 44.5 % Mean Corpuscular Volume 91 fL Mean Corpuscular Hemoglobin 30 pg Mean Corpuscular Hemoglobin Concent 33 g/dL Red Cell Distribution Width 14.8 % Platelet Count 234 x10^3/uL Neutrophils (%) (Auto) 58 % Lymphocytes (%) (Auto) 33 % Monocytes (%) (Auto) 8 % Eosinophils (%) (Auto) 1 % Basophils (%) (Auto) 0 % Neutrophils # (Auto) 4.6 x10^3uL Lymphocytes # (Auto) 2.6 x10^3/uL Monocytes # (Auto) 0.7 x10^3/uL Eosinophils # (Auto) 0.1 x10^3/uL Basophils # (Auto) 0.0 x10^3/uL Sodium Level 140 mmol/L Potassium Level 4.1 mmol/L Chloride Level 103 mmol/L Carbon Dioxide Level 31 mmol/L Anion Gap 6 Blood Urea Nitrogen 26 mg/dL Creatinine 0.9 mg/dL Estimated GFR (Cockcroft-Gault) 61.0 BUN/Creatinine Ratio 29 Glucose Level 137 mg/dL Calcium Level 9.1 mg/dL Total Bilirubin 0.6 mg/dL Aspartate Amino Transf (AST/SGOT) 21 U/L Alanine Aminotransferase (ALT/SGPT) 38 U/L Alkaline Phosphatase 53 U/L Total Protein 6.9 g/dL Albumin 3.7 g/dL Albumin/Globulin Ratio 1.2 Current Medications Medications (Trade) Dose Ordered Sig/Manasa Route PRN Reason Start Time Stop Time Status Last Admin Dose Admin Acetaminophen (Tylenol) 650 mg PRN Q6HRS PRN PO MILD PAIN / TEMP > 100.3'F 02/15/21 14:45 Multi-Ingredient Ointment (Analgesic [place]) 1 anibal PRN QID PRN TP MUSCLE PAIN 02/15/21 14:45 Al Hydroxide/Mg Hydroxide (Mylanta Plus Xs) 15 ml PRN AFTMEALHC PRN PO DYSPEPSIA 02/15/21 14:45 Magnesium Hydroxide (Milk Of Magnesia) 2,400 mg PRN QHS PRN PO CONSTIPATION 02/15/21 14:45 Influenza Virus Vaccine Quadrival (Flulaval Quad [id number] Syringe) 0.5 ml ONCE ONCE VAX IM 02/16/21 09:00 02/16/21 09:01 DC 02/16/21 09:40 Glipizide (Glucotrol) 2.5 mg DAILY PO 02/16/21 09:00 03/03/21 08:21 Lisinopril (Prinivil) 10 mg HS PO 02/15/21 21:00 03/02/21 20:29 Metoprolol Tartrate (Lopressor) 12.5 mg BID PO 02/15/21 21:00 03/03/21 08:21 Trazodone HCl (Desyrel) 50 mg QHS PO 02/15/21 21:00 03/02/21 20:28 Venlafaxine HCl (Effexor) 75 mg DAILY PO 02/16/21 09:00 03/03/21 08:21 Atorvastatin Calcium (Lipitor) 40 mg QHS PO 02/15/21 21:00 03/02/21 20:29 Quetiapine Fumarate (SEROquel) 12.5 mg QHS PO 02/16/21 21:00 03/02/21 20:28 Olanzapine (ZyPREXA ZYDIS) 2.5 mg PRN Q2HR PRN PO PSYCHOSIS 02/27/21 17:00 I have reviewed the current psychotropics carefully including drug interactions. Risk benefit ratio favors no change other than as noted in my dictated progress note. Diagnosis: Problems: (1) Major depressive disorder with psychotic features (2) Impulse control disorder, unspecified (3) Anxiety disorder, unspecified (4) Dementia, vascular, with depression (5) Dementia, vascular, with delusions (6) Dementia in Alzheimer's disease with depression (7) Dementia in Alzheimer's disease with delusions (8) Major neurocognitive disorder (9) Dementia in Alzheimer's disease with early onset with behavioral disturbance MARIA LUISA SMITH MD Mar 03, 2021 10:16
--- NOTE | 2021-03-03 10:30 | PDOC ---
Exam Note: Leighton Note: Late entry for 03/02/21. Please also refer to the separate dictated note~for this date of service dictated separately.~Patient seen individually. Discussed the patient with Nursing staff reviewed the chart.~Reviewed interim history and current functioning. Reviewed vital signs,~Labs/ Radiology~and current medicat ions noted below. Continue current treatment with the changes noted in the dictated addendum note Assessment: Vital Signs/I&O: Vital Signs Date Time Temp Pulse Resp B/P (MAP) Pulse Ox O2 Delivery O2 Flow Rate FiO2 03/03/21 08:21 59 120/65 03/03/21 06:19 97.2 18 96 Room Air I & O 03/02/21 03/02/21 03/03/21 15:00 23:00 07:00 Intake Total 960 ml 480 ml Balance 960 ml 480 ml Labs: Laboratory Tests Test 03/03/21 07:45 White Blood Count 7.9 x10^3/uL (4.0-11.0) Red Blood Count 4.90 x10^6/uL (3.50-5.40) Hemoglobin 14.7 g/dL (12.0-15.5) Hematocrit 44.5 % (36.0-47.0) Mean Corpuscular Volume 91 fL (79-100) Mean Corpuscular Hemoglobin 30 pg (25-35) Mean Corpuscular Hemoglobin Concent 33 g/dL (31-37) Red Cell Distribution Width 14.8 % (11.5-14.5) H Platelet Count 234 x10^3/uL (140-400) Neutrophils (%) (Auto) 58 % (31-73) Lymphocytes (%) (Auto) 33 % (24-48) Monocytes (%) (Auto) 8 % (0-9) Eosinophils (%) (Auto) 1 % (0-3) Basophils (%) (Auto) 0 % (0-3) Neutrophils # (Auto) 4.6 x10^3uL (1.8-7.7) Lymphocytes # (Auto) 2.6 x10^3/uL (1.0-4.8) Monocytes # (Auto) 0.7 x10^3/uL (0.0-1.1) Eosinophils # (Auto) 0.1 x10^3/uL (0.0-0.7) Basophils # (Auto) 0.0 x10^3/uL (0.0-0.2) Sodium Level 140 mmol/L (136-145) Potassium Level 4.1 mmol/L (3.5-5.1) Chloride Level 103 mmol/L (98-107) Carbon Dioxide Level 31 mmol/L (21-32) Anion Gap 6 (6-14) Blood Urea Nitrogen 26 mg/dL (7-20) H Creatinine 0.9 mg/dL (0.6-1.0) Estimated GFR (Cockcroft-Gault) 61.0 BUN/Creatinine Ratio 29 (6-20) H Glucose Level 137 mg/dL (70-99) H Calcium Level 9.1 mg/dL (8.5-10.1) Total Bilirubin 0.6 mg/dL (0.2-1.0) Aspartate Amino Transferase (AST) 21 U/L (15-37) Alanine Aminotransferase (ALT) 38 U/L (14-59) Alkaline Phosphatase 53 U/L (46-116) Total Protein 6.9 g/dL (6.4-8.2) Albumin 3.7 g/dL (3.4-5.0) Albumin/Globulin Ratio 1.2 (1.0-1.7) Current Medications: Meds: Laboratory Tests Test 03/03/21 07:45 White Blood Count 7.9 x10^3/uL Red Blood Count 4.90 x10^6/uL Hemoglobin 14.7 g/dL Hematocrit 44.5 % Mean Corpuscular Volume 91 fL Mean Corpuscular Hemoglobin 30 pg Mean Corpuscular Hemoglobin Concent 33 g/dL Red Cell Distribution Width 14.8 % Platelet Count 234 x10^3/uL Neutrophils (%) (Auto) 58 % Lymphocytes (%) (Auto) 33 % Monocytes (%) (Auto) 8 % Eosinophils (%) (Auto) 1 % Basophils (%) (Auto) 0 % Neutrophils # (Auto) 4.6 x10^3uL Lymphocytes # (Auto) 2.6 x10^3/uL Monocytes # (Auto) 0.7 x10^3/uL Eosinophils # (Auto) 0.1 x10^3/uL Basophils # (Auto) 0.0 x10^3/uL Sodium Level 140 mmol/L Potassium Level 4.1 mmol/L Chloride Level 103 mmol/L Carbon Dioxide Level 31 mmol/L Anion Gap 6 Blood Urea Nitrogen 26 mg/dL Creatinine 0.9 mg/dL Estimated GFR (Cockcroft-Gault) 61.0 BUN/Creatinine Ratio 29 Glucose Level 137 mg/dL Calcium Level 9.1 mg/dL Total Bilirubin 0.6 mg/dL Aspartate Amino Transf (AST/SGOT) 21 U/L Alanine Aminotransferase (ALT/SGPT) 38 U/L Alkaline Phosphatase 53 U/L Total Protein 6.9 g/dL Albumin 3.7 g/dL Albumin/Globulin Ratio 1.2 Current Medications Medications (Trade) Dose Ordered Sig/Manasa Route PRN Reason Start Time Stop Time Status Last Admin Dose Admin Acetaminophen (Tylenol) 650 mg PRN Q6HRS PRN PO MILD PAIN / TEMP > 100.3'F 02/15/21 14:45 Multi-Ingredient Ointment (Analgesic [place]) 1 anibal PRN QID PRN TP MUSCLE PAIN 02/15/21 14:45 Al Hydroxide/Mg Hydroxide (Mylanta Plus Xs) 15 ml PRN AFTMEALHC PRN PO DYSPEPSIA 02/15/21 14:45 Magnesium Hydroxide (Milk Of Magnesia) 2,400 mg PRN QHS PRN PO CONSTIPATION 02/15/21 14:45 Influenza Virus Vaccine Quadrival (Flulaval Quad [id number] Syringe) 0.5 ml ONCE ONCE VAX IM 02/16/21 09:00 02/16/21 09:01 DC 02/16/21 09:40 Glipizide (Glucotrol) 2.5 mg DAILY PO 02/16/21 09:00 03/03/21 08:21 Lisinopril (Prinivil) 10 mg HS PO 02/15/21 21:00 03/02/21 20:29 Metoprolol Tartrate (Lopressor) 12.5 mg BID PO 02/15/21 21:00 03/03/21 08:21 Trazodone HCl (Desyrel) 50 mg QHS PO 02/15/21 21:00 03/02/21 20:28 Venlafaxine HCl (Effexor) 75 mg DAILY PO 02/16/21 09:00 03/03/21 08:21 Atorvastatin Calcium (Lipitor) 40 mg QHS PO 02/15/21 21:00 03/02/21 20:29 Quetiapine Fumarate (SEROquel) 12.5 mg QHS PO 02/16/21 21:00 03/02/21 20:28 Olanzapine (ZyPREXA ZYDIS) 2.5 mg PRN Q2HR PRN PO PSYCHOSIS 02/27/21 17:00 I have reviewed the current psychotropics carefully including drug interactions. Risk benefit ratio favors no change other than as noted in my dictated progress note. 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
[2021-03-03 16:15] VITALS: BP 117/66
[2021-03-03] MEDS: traZODone 50 MG TABLET. PO SCH (19:50)
[2021-03-03] MEDS: QUEtiapine 25 MG TABLET. PO SCH (19:50)
[2021-03-03] MEDS: ATORVASTATIN CALCIUM 20 MG TABLET PO SCH (19:50)
[2021-03-03] MEDS: LISINOPRIL 10 MG TABLET PO SCH (19:51)
[2021-03-04 05:57] VITALS: BP 116/66
[2021-03-04] MEDS: METOPROLOL TART IMMED RELEASE 25 MG TABLET. PO SCH ×2 (08:28→20:00)
[2021-03-04] MEDS: VENLAFAXINE 75 MG TABLET. PO SCH (08:28)
[2021-03-04] MEDS: glipiZIDE 5 MG TABLET PO SCH (08:28)
--- NOTE | 2021-03-04 08:35 | PDOC ---
Exam Note: Leighton Note: This note is a late entry for 03/01/2021 covers elements not covered in my initial note. Subjective: The patient was seen individually in the evening of 03/01/2021 with Wes WOLF, discussed and reviewed the chart. The patient slept 5-3/4 hours previous night. Overall she remains confused but about the same, not agitated or aggressive. Apparently the is wanting some information but her daughter is the DPOA and in the past the daughter has restricted patients telephone calls with her who has been informed may have some memory deficits himself. We will have social service staff communicate with her that the daughter has DPOAs consent. Review of Systems: No CV, , pulmonary, eye, ENT system symptoms on review. Reliability poor. Mental Status Exam: The patient is oriented to herself. Insight and judgment, recent and remote memory, attention and concentration, fund of knowledge is poor consistent with her diagnoses. Laboratory Data: Reviewed. Impression: Major depressive disorder, severe. Major neurocognitive disorder, Alzheimer, vascular with delusion, depression, behavioral disturbance. Anxiety disorder unspecified. Plan: Continue current psychotropics. Assessment: Vital Signs/I&O: Vital Signs Date Time Temp Pulse Resp B/P (MAP) Pulse Ox O2 Delivery O2 Flow Rate FiO2 03/04/21 08:28 65 116/66 03/04/21 05:57 98.0 16 93 03/03/21 06:19 Room Air I & O 03/03/21 03/03/21 03/04/21 14:59 22:59 06:59 Intake Total 720 ml 600 ml Balance 720 ml 600 ml Current Medications: Meds: Current Medications Medications (Trade) Dose Ordered Sig/Manasa Route PRN Reason Start Time Stop Time Status Last Admin Dose Admin Acetaminophen (Tylenol) 650 mg PRN Q6HRS PRN PO MILD PAIN / TEMP > 100.3'F 02/15/21 14:45 Multi-Ingredient Ointment (Analgesic [place]) 1 anibal PRN QID PRN TP MUSCLE PAIN 02/15/21 14:45 Al Hydroxide/Mg Hydroxide (Mylanta Plus Xs) 15 ml PRN AFTMEALHC PRN PO DYSPEPSIA 02/15/21 14:45 Magnesium Hydroxide (Milk Of Magnesia) 2,400 mg PRN QHS PRN PO CONSTIPATION 02/15/21 14:45 Influenza Virus Vaccine Quadrival (Flulaval Quad Syringe) 0.5 ml ONCE ONCE VAX IM 02/16/21 09:00 02/16/21 09:01 DC 02/16/21 09:40 Glipizide (Glucotrol) 2.5 mg DAILY PO 02/16/21 09:00 03/04/21 08:28 Lisinopril (Prinivil) 10 mg HS PO 02/15/21 21:00 03/03/21 19:51 Metoprolol Tartrate (Lopressor) 12.5 mg BID PO 02/15/21 21:00 03/04/21 08:28 Trazodone HCl (Desyrel) 50 mg QHS PO 02/15/21 21:00 03/03/21 19:50 Venlafaxine HCl (Effexor) 75 mg DAILY PO 02/16/21 09:00 03/04/21 08:28 Atorvastatin Calcium (Lipitor) 40 mg QHS PO 02/15/21 21:00 03/03/21 19:50 Quetiapine Fumarate (SEROquel) 12.5 mg QHS PO 02/16/21 21:00 03/03/21 19:50 Olanzapine (ZyPREXA ZYDIS) 2.5 mg PRN Q2HR PRN PO PSYCHOSIS 02/27/21 17:00 I have reviewed the current psychotropics carefully including drug interactions. Risk benefit ratio favors no change other than as noted in my dictated progress note. 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
--- NOTE | 2021-03-04 08:49 | PDOC ---
Exam Note: Leighton Note: This note is a late entry for 03/02/2021 covers elements not covered in my initial note. Subjective: The patient was seen individually in the evening of 03/02/2021 with Wes WOLF, discussed and reviewed the chart. The patient slept 6-1/2 hours previous night. Patient continues to follow another demented patient on the unit. She inadvertently took another patients clothes, oblivious of what she was doing. No suicidal ideation. She is not aggressive. She was in the dayroom as I met with her. Review of Systems: No CV, , pulmonary, eye, ENT system symptoms on review. Reliability poor. Mental Status Exam: The patient is oriented to herself. Insight and judgment, recent and remote memory, attention and concentration, fund of knowledge is poor consistent with her diagnoses. Laboratory Data: Reviewed. Impression: Major depressive disorder, severe. Major neurocognitive disorder, Alzheimer, vascular with delusion, depression, behavioral disturbance. Anxiety disorder unspecified. Plan: Continue current psychotropics. Assessment: Vital Signs/I&O: Vital Signs Date Time Temp Pulse Resp B/P (MAP) Pulse Ox O2 Delivery O2 Flow Rate FiO2 03/04/21 08:28 65 116/66 03/04/21 05:57 98.0 16 93 03/03/21 06:19 Room Air I & O 03/03/21 03/03/21 03/04/21 15:00 23:00 07:00 Intake Total 720 ml 600 ml Balance 720 ml 600 ml Current Medications: Meds: Current Medications Medications (Trade) Dose Ordered Sig/Manasa Route PRN Reason Start Time Stop Time Status Last Admin Dose Admin Acetaminophen (Tylenol) 650 mg PRN Q6HRS PRN PO MILD PAIN / TEMP > 100.3'F 02/15/21 14:45 Multi-Ingredient Ointment (Analgesic [place]) 1 anibal PRN QID PRN TP MUSCLE PAIN 02/15/21 14:45 Al Hydroxide/Mg Hydroxide (Mylanta Plus Xs) 15 ml PRN AFTMEALHC PRN PO DYSPEPSIA 02/15/21 14:45 Magnesium Hydroxide (Milk Of Magnesia) 2,400 mg PRN QHS PRN PO CONSTIPATION 02/15/21 14:45 Influenza Virus Vaccine Quadrival (Flulaval Quad Syringe) 0.5 ml ONCE ONCE VAX IM 02/16/21 09:00 02/16/21 09:01 DC 02/16/21 09:40 Glipizide (Glucotrol) 2.5 mg DAILY PO 02/16/21 09:00 03/04/21 08:28 Lisinopril (Prinivil) 10 mg HS PO 02/15/21 21:00 03/03/21 19:51 Metoprolol Tartrate (Lopressor) 12.5 mg BID PO 02/15/21 21:00 03/04/21 08:28 Trazodone HCl (Desyrel) 50 mg QHS PO 02/15/21 21:00 03/03/21 19:50 Venlafaxine HCl (Effexor) 75 mg DAILY PO 02/16/21 09:00 03/04/21 08:28 Atorvastatin Calcium (Lipitor) 40 mg QHS PO 02/15/21 21:00 03/03/21 19:50 Quetiapine Fumarate (SEROquel) 12.5 mg QHS PO 02/16/21 21:00 03/03/21 19:50 Olanzapine (ZyPREXA ZYDIS) 2.5 mg PRN Q2HR PRN PO PSYCHOSIS 02/27/21 17:00 I have reviewed the current psychotropics carefully including drug interactions. Risk benefit ratio favors no change other than as noted in my dictated progress note. 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
--- NOTE | 2021-03-04 09:12 | PDOC ---
Exam Note: Leighton Note: Late entry for 03/03/2021. Please also refer to the separate dictated note~for this date of service dictated separately. Discussed the patient with Nursing staff reviewed the chart.~Reviewed interim history and current functioning. Reviewed vital signs,~Labs/ Radiology~and current medications noted below. Continue current treatment with the changes noted in the dictated addendum note Assessment: Vital Signs/I&O: Vital Signs Date Time Temp Pulse Resp B/P (MAP) Pulse Ox O2 Delivery O2 Flow Rate FiO2 03/04/21 08:28 65 116/66 03/04/21 05:57 98.0 16 93 03/03/21 06:19 Room Air I & O 03/03/21 03/03/21 03/04/21 14:59 22:59 06:59 Intake Total 720 ml 600 ml Balance 720 ml 600 ml Current Medications: Meds: Current Medications Medications (Trade) Dose Ordered Sig/Manasa Route PRN Reason Start Time Stop Time Status Last Admin Dose Admin Acetaminophen (Tylenol) 650 mg PRN Q6HRS PRN PO MILD PAIN / TEMP > 100.3'F 02/15/21 14:45 Multi-Ingredient Ointment (Analgesic [place]) 1 anibal PRN QID PRN TP MUSCLE PAIN 02/15/21 14:45 Al Hydroxide/Mg Hydroxide (Mylanta Plus Xs) 15 ml PRN AFTMEALHC PRN PO DYSPEPSIA 02/15/21 14:45 Magnesium Hydroxide (Milk Of Magnesia) 2,400 mg PRN QHS PRN PO CONSTIPATION 02/15/21 14:45 Influenza Virus Vaccine Quadrival (Flulaval Quad Syringe) 0.5 ml ONCE ONCE VAX IM 02/16/21 09:00 02/16/21 09:01 DC 02/16/21 09:40 Glipizide (Glucotrol) 2.5 mg DAILY PO 02/16/21 09:00 03/04/21 08:28 Lisinopril (Prinivil) 10 mg HS PO 02/15/21 21:00 03/03/21 19:51 Metoprolol Tartrate (Lopressor) 12.5 mg BID PO 02/15/21 21:00 03/04/21 08:28 Trazodone HCl (Desyrel) 50 mg QHS PO 02/15/21 21:00 03/03/21 19:50 Venlafaxine HCl (Effexor) 75 mg DAILY PO 02/16/21 09:00 03/04/21 08:28 Atorvastatin Calcium (Lipitor) 40 mg QHS PO 02/15/21 21:00 03/03/21 19:50 Quetiapine Fumarate (SEROquel) 12.5 mg QHS PO 02/16/21 21:00 03/03/21 19:50 Olanzapine (ZyPREXA ZYDIS) 2.5 mg PRN Q2HR PRN PO PSYCHOSIS 02/27/21 17:00 I have reviewed the current psychotropics carefully including drug interactions. Risk benefit ratio favors no change other than as noted in my dictated progress note. 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
[2021-03-04 15:49] VITALS: BP 128/65
[2021-03-04] MEDS: QUEtiapine 25 MG TABLET. PO SCH (20:00)
[2021-03-04] MEDS: LISINOPRIL 10 MG TABLET PO SCH (20:00)
[2021-03-04] MEDS: traZODone 50 MG TABLET. PO SCH (20:00)
[2021-03-04] MEDS: ATORVASTATIN CALCIUM 20 MG TABLET PO SCH (20:01)
--- NOTE | 2021-03-04 21:48 | PDOC ---
Exam Note: Leighton Note: Please also refer to the separate dictated note~for this date of service dictated separately.~Patient seen individually. Discussed the patient with Nursing staff reviewed the chart.~Reviewed interim history and current functioning. Reviewed vital signs,~Labs/ Radiology~and current medications noted below. Continue current treatment with the changes noted in the dictated addendum note Assessment: Vital Signs/I&O: Vital Signs Date Time Temp Pulse Resp B/P (MAP) Pulse Ox O2 Delivery O2 Flow Rate FiO2 03/04/21 20:00 77 128/65 03/04/21 15:49 98.7 16 96 03/03/21 06:19 Room Air I & O 03/03/21 03/03/21 03/04/21 15:00 23:00 07:00 Intake Total 720 ml 600 ml Balance 720 ml 600 ml Current Medications: Meds: Current Medications Medications (Trade) Dose Ordered Sig/Manasa Route PRN Reason Start Time Stop Time Status Last Admin Dose Admin Acetaminophen (Tylenol) 650 mg PRN Q6HRS PRN PO MILD PAIN / TEMP > 100.3'F 02/15/21 14:45 Multi-Ingredient Ointment (Analgesic [place]) 1 anibal PRN QID PRN TP MUSCLE PAIN 02/15/21 14:45 Al Hydroxide/Mg Hydroxide (Mylanta Plus Xs) 15 ml PRN AFTMEALHC PRN PO DYSPEPSIA 02/15/21 14:45 Magnesium Hydroxide (Milk Of Magnesia) 2,400 mg PRN QHS PRN PO CONSTIPATION 02/15/21 14:45 Influenza Virus Vaccine Quadrival (Flulaval Quad [id number] Syringe) 0.5 ml ONCE ONCE VAX IM 02/16/21 09:00 02/16/21 09:01 DC 02/16/21 09:40 Glipizide (Glucotrol) 2.5 mg DAILY PO 02/16/21 09:00 03/04/21 08:28 Lisinopril (Prinivil) 10 mg HS PO 02/15/21 21:00 03/04/21 20:00 Metoprolol Tartrate (Lopressor) 12.5 mg BID PO 02/15/21 21:00 03/04/21 20:00 Trazodone HCl (Desyrel) 50 mg QHS PO 02/15/21 21:00 03/04/21 20:00 Venlafaxine HCl (Effexor) 75 mg DAILY PO 02/16/21 09:00 03/04/21 08:28 Atorvastatin Calcium (Lipitor) 40 mg QHS PO 02/15/21 21:00 03/04/21 20:01 Quetiapine Fumarate (SEROquel) 12.5 mg QHS PO 02/16/21 21:00 03/04/21 20:00 Olanzapine (ZyPREXA ZYDIS) 2.5 mg PRN Q2HR PRN PO PSYCHOSIS 02/27/21 17:00 I have reviewed the current psychotropics carefully including drug interactions. Risk benefit ratio favors no change other than as noted in my dictated progress note. 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
[2021-03-05 05:41] VITALS: BP 94/60
[2021-03-05] MEDS: VENLAFAXINE 75 MG TABLET. PO SCH (08:16)
[2021-03-05] MEDS: glipiZIDE 5 MG TABLET PO SCH (08:18)
[2021-03-05] MEDS: METOPROLOL TART IMMED RELEASE 25 MG TABLET. PO SCH ×2 (08:18→19:48)
--- NOTE | 2021-03-05 08:39 | PDOC ---
Exam Note: Leighton Note: This note is a late entry for 03/04/2021 covers elements not covered in my initial note. Subjective: The patient was reviewed at treatment team meeting individually in the morning on 03/04/2021 with Leigh Eller, Sweetie Cuevas, and Reina Adhikari (delinquency prevention social worker), Claudine, activity therapy and Kierra WOLF, discussed and reviewed the chart. The patient slept 6-3/4 hours previous night. Overall the patient remains confused, wanders the hallways. She attended 9 groups in the past 1 week. She needs prompting for activities. She is irritable with her on the telephone calls. Leigh Eller (delinquency prevention social worker) discussed at some length how the feels he should be the DPOA, in fact the daughter is the power of attorney at law. Leigh had shared information with the after receiving consent from the daughter but the is wanting further information and Leigh will coordinate everything through the DPOA since it appears according to nursing and social service staff, may be having some short-term memory deficits himself. Review of Systems: No CV, , pulmonary, eye, ENT system symptoms on review. Reliability poor. Mental Status Exam: The patient is oriented to herself. She was seen in the TV lounge area. She was watching a [employer] football game but seems oblivious of what was happening. Otherwise she is pleasant. Insight and judgment, recent and remote memory, attention and concentration, fund of knowledge is poor consistent with her diagnoses. Laboratory Data: Reviewed. Impression: Major depressive disorder, severe. Major neurocognitive disorder, Alzheimer, vascular with delusion, depression, behavioral disturbance. Anxiety disorder unspecified. Plan: Continue current psychotropics from initial note. Assessment: Vital Signs/I&O: Vital Signs Date Time Temp Pulse Resp B/P (MAP) Pulse Ox O2 Delivery O2 Flow Rate FiO2 03/05/21 08:18 63 94/60 03/05/21 05:41 97.5 16 98 03/03/21 06:19 Room Air I & O 03/04/21 03/04/21 03/05/21 15:00 23:00 07:00 Intake Total 720 ml 240 ml 360 ml Balance 720 ml 240 ml 360 ml Current Medications: Meds: Current Medications Medications (Trade) Dose Ordered Sig/Manasa Route PRN Reason Start Time Stop Time Status Last Admin Dose Admin Acetaminophen (Tylenol) 650 mg PRN Q6HRS PRN PO MILD PAIN / TEMP > 100.3'F 02/15/21 14:45 Multi-Ingredient Ointment (Analgesic [place]) 1 anibal PRN QID PRN TP MUSCLE PAIN 02/15/21 14:45 Al Hydroxide/Mg Hydroxide (Mylanta Plus Xs) 15 ml PRN AFTMEALHC PRN PO DYSPEPSIA 02/15/21 14:45 Magnesium Hydroxide (Milk Of Magnesia) 2,400 mg PRN QHS PRN PO CONSTIPATION 02/15/21 14:45 Influenza Virus Vaccine Quadrival (Flulaval Quad Syringe) 0.5 ml ONCE ONCE VAX IM 02/16/21 09:00 02/16/21 09:01 DC 02/16/21 09:40 Glipizide (Glucotrol) 2.5 mg DAILY PO 02/16/21 09:00 03/05/21 08:18 Lisinopril (Prinivil) 10 mg HS PO 02/15/21 21:00 03/04/21 20:00 Metoprolol Tartrate (Lopressor) 12.5 mg BID PO 02/15/21 21:00 03/05/21 08:18 Trazodone HCl (Desyrel) 50 mg QHS PO 02/15/21 21:00 03/04/21 20:00 Venlafaxine HCl (Effexor) 75 mg DAILY PO 02/16/21 09:00 03/05/21 08:16 Atorvastatin Calcium (Lipitor) 40 mg QHS PO 02/15/21 21:00 03/04/21 20:01 Quetiapine Fumarate (SEROquel) 12.5 mg QHS PO 02/16/21 21:00 03/04/21 20:00 Olanzapine (ZyPREXA ZYDIS) 2.5 mg PRN Q2HR PRN PO PSYCHOSIS 02/27/21 17:00 I have reviewed the current psychotropics carefully including drug interactions. Risk benefit ratio favors no change other than as noted in my dictated progress note. Diagnosis: Problems: (1) Impulse control disorder, unspecified (2) Anxiety disorder, unspecified (3) Dementia, vascular, with depression (4) Dementia, vascular, with delusions (5) Dementia in Alzheimer's disease with depression (6) Dementia in Alzheimer's disease with delusions (7) Major neurocognitive disorder (8) Dementia in Alzheimer's disease with early onset with behavioral disturbance MARIA LUISA SMITH MD Mar 05, 2021 08:39
--- NOTE | 2021-03-05 13:58 | TX PLAN ---
Interdisciplinary Tx Plan Admission Information Feb 15, 2021 at 13:55 Legal Status (on Admission): Voluntary DPOA/Guardian Name: Marlys Donaldson Contact Other Contact Verified Code Status: DNR Allergies: Coded Allergies: No Known Drug Allergies (Unverified , 02/15/21) Diagnoses Primary Diagnosis: MDD with psychotic features Reasons for Admission: Agitated, Sig. Change Sleep, Hallucinations, Suicidal ideation, Confusion/Disoriented, Other Problem in Patient's Words: She is not being cared for and continues to have increased hallucinations/depression. Additional Admission Comments: According to the intake, pt is SI, wants to be under [facility], insomnia, depressed, made motion of holding gun to her head, visual hallucinations, seeing dogs and people, verbal aggression. Problems Active Problems: Confusion Inactive Problems: Medication compliant Pt Strengths/Limitations Ability for [place]: Poor Cognitive Functioning/Ability: Fair Communication Skills/Ability: Fair Financial Resources: Fair Insight/Judgement: Poor Intellectual Ability: Fair Physical Health: Fair Social Skills: Fair Stability in Family: Good Stability in School/Work: Poor Verbal Skills: Fair Discharge Criteria Discharge Criteria: Able meet basic life need, Adequate arrangements @DC, Improved behavior, Improved mood/thought Preliminary Discharge Plan Preliminary DC Plan: Current Living Arrange., Other Special Precautions Fall Risk: Low Initial D/C Plan Discharge plan is unknown at this time; may need referrals for a higher level of care. Identified Discharge Needs: Concerned may need a higher level of care. Currently Utilized Resources Currently Utilized Resources/P: Primary Care Physician Neurologist Referrals Community Resources: None Identified Problems/Hx/Goals Objectives/Short-Term Goals Short Term Goals: Dec. Aggression, Dec. Outbursts, Dec. Symp. Depression, Prevent Deterioration, Promote Coping Skill Short Term Goals in Patient's: N/A Interventions/Frequency Staff Interventions/Frequency&: Psychiatrist to assess pt at least 3x per week for medication management. Social Work to assess pt at least 2x per week to identify barriers to care and discharge planning goals. Nursing to assess pt medication effects, behavior management and complete 15 minute checks daily. Encourage participation in group activities (if applicable) or 1:1 engagement based off activity dept goals. History Vocational History: Pt worked in [employer] most of her life. 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 Community Follow-up Primary Care Physician Neurologist Treatment Plan Explained Patient/Transmitter Chief had this treatment plan explained to him/her as indicated by the signature below and has been given the opportunity to ask questions and make suggestions: Date: Patient/Transmitter Chief Signature: Status Update Update Pt is eating 100% of meals and sleeping on average 7 hours per night. Pt continues to be pleasant, calm and compliant with medications/cares. Pt has been noted to be appeared agitated when she receives call from her ; pt is noted to say multiple times "you already asked me that question" or "you already gave me that number". Pt has participated in nine groups this last week with moderate to full participation. Pt does at times needs encouragement and prompting but does well. Pt family is working out placement plans and can look towards the end of this week for discharge. EVELYN MAYA Mar 05, 2021 13:58
[2021-03-05 15:48] VITALS: BP 119/57
[2021-03-05] MEDS: ATORVASTATIN CALCIUM 20 MG TABLET PO SCH (19:49)
[2021-03-05] MEDS: traZODone 50 MG TABLET. PO SCH (19:49)
[2021-03-05] MEDS: LISINOPRIL 10 MG TABLET PO SCH (19:49)
[2021-03-05] MEDS: QUEtiapine 25 MG TABLET. PO SCH (19:50)
--- NOTE | 2021-03-05 22:21 | PDOC ---
Exam Note: Leighton Note: Please also refer to the separate dictated note~for this date of service dictated separately.~Patient seen individually. Discussed the patient with Nursing staff reviewed the chart.~Reviewed interim history and current functioning. Reviewed vital signs,~Labs/ Radiology~and current medications noted below. Continue current treatment with the changes noted in the dictated addendum note Assessment: Vital Signs/I&O: Vital Signs Date Time Temp Pulse Resp B/P (MAP) Pulse Ox O2 Delivery O2 Flow Rate FiO2 03/05/21 19:49 98 119/57 03/05/21 15:48 98.9 19 97 03/03/21 06:19 Room Air I & O 03/04/21 03/04/21 03/05/21 15:00 23:00 07:00 Intake Total 720 ml 240 ml 360 ml Balance 720 ml 240 ml 360 ml Current Medications: Meds: Current Medications Medications (Trade) Dose Ordered Sig/Manasa Route PRN Reason Start Time Stop Time Status Last Admin Dose Admin Acetaminophen (Tylenol) 650 mg PRN Q6HRS PRN PO MILD PAIN / TEMP > 100.3'F 02/15/21 14:45 Multi-Ingredient Ointment (Analgesic [place]) 1 anibal PRN QID PRN TP MUSCLE PAIN 02/15/21 14:45 Al Hydroxide/Mg Hydroxide (Mylanta Plus Xs) 15 ml PRN AFTMEALHC PRN PO DYSPEPSIA 02/15/21 14:45 Magnesium Hydroxide (Milk Of Magnesia) 2,400 mg PRN QHS PRN PO CONSTIPATION 02/15/21 14:45 Influenza Virus Vaccine Quadrival (Flulaval Quad [id number] Syringe) 0.5 ml ONCE ONCE VAX IM 02/16/21 09:00 02/16/21 09:01 DC 02/16/21 09:40 Glipizide (Glucotrol) 2.5 mg DAILY PO 02/16/21 09:00 03/05/21 08:18 Lisinopril (Prinivil) 10 mg HS PO 02/15/21 21:00 03/05/21 19:49 Metoprolol Tartrate (Lopressor) 12.5 mg BID PO 02/15/21 21:00 03/05/21 19:48 Trazodone HCl (Desyrel) 50 mg QHS PO 02/15/21 21:00 03/05/21 19:49 Venlafaxine HCl (Effexor) 75 mg DAILY PO 02/16/21 09:00 03/05/21 08:16 Atorvastatin Calcium (Lipitor) 40 mg QHS PO 02/15/21 21:00 03/05/21 19:49 Quetiapine Fumarate (SEROquel) 12.5 mg QHS PO 02/16/21 21:00 03/05/21 19:50 Olanzapine (ZyPREXA ZYDIS) 2.5 mg PRN Q2HR PRN PO PSYCHOSIS 02/27/21 17:00 I have reviewed the current psychotropics carefully including drug interactions. Risk benefit ratio favors no change other than as noted in my dictated progress note. 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
[2021-03-06 06:04] VITALS: BP 178/79
[2021-03-06] MEDS: glipiZIDE 5 MG TABLET PO SCH (09:18)
[2021-03-06] MEDS: METOPROLOL TART IMMED RELEASE 25 MG TABLET. PO SCH ×2 (09:19→20:51)
[2021-03-06] MEDS: VENLAFAXINE 75 MG TABLET. PO SCH (09:19)
[2021-03-06 15:35] VITALS: BP 114/61
[2021-03-06] MEDS: traZODone 50 MG TABLET. PO SCH (20:50)
[2021-03-06] MEDS: QUEtiapine 25 MG TABLET. PO SCH (20:51)
[2021-03-06] MEDS: ATORVASTATIN CALCIUM 20 MG TABLET PO SCH (20:51)
[2021-03-06] MEDS: LISINOPRIL 10 MG TABLET PO SCH (20:51)
--- NOTE | 2021-03-06 21:55 | PDOC ---
Exam Note: Leighton Note: Please also refer to the separate dictated note~for this date of service dictated separately.~Patient seen individually. Discussed the patient with Nursing staff reviewed the chart.~Reviewed interim history and current functioning. Reviewed vital signs,~Labs/ Radiology~and current medications noted below. Continue current treatment with the changes noted in the dictated addendum note Assessment: Vital Signs/I&O: Vital Signs Date Time Temp Pulse Resp B/P (MAP) Pulse Ox O2 Delivery O2 Flow Rate FiO2 03/06/21 20:51 74 114/61 03/06/21 15:35 98.5 16 95 03/03/21 06:19 Room Air I & O 03/05/21 03/05/21 03/06/21 15:00 23:00 07:00 Intake Total 620 ml 610 ml Balance 620 ml 610 ml Current Medications: Meds: Current Medications Medications (Trade) Dose Ordered Sig/Manasa Route PRN Reason Start Time Stop Time Status Last Admin Dose Admin Acetaminophen (Tylenol) 650 mg PRN Q6HRS PRN PO MILD PAIN / TEMP > 100.3'F 02/15/21 14:45 Multi-Ingredient Ointment (Analgesic [place]) 1 anibal PRN QID PRN TP MUSCLE PAIN 02/15/21 14:45 Al Hydroxide/Mg Hydroxide (Mylanta Plus Xs) 15 ml PRN AFTMEALHC PRN PO DYSPEPSIA 02/15/21 14:45 Magnesium Hydroxide (Milk Of Magnesia) 2,400 mg PRN QHS PRN PO CONSTIPATION 02/15/21 14:45 Influenza Virus Vaccine Quadrival (Flulaval Quad [id number] Syringe) 0.5 ml ONCE ONCE VAX IM 02/16/21 09:00 02/16/21 09:01 DC 02/16/21 09:40 Glipizide (Glucotrol) 2.5 mg DAILY PO 02/16/21 09:00 03/06/21 09:18 Lisinopril (Prinivil) 10 mg HS PO 02/15/21 21:00 03/06/21 20:51 Metoprolol Tartrate (Lopressor) 12.5 mg BID PO 02/15/21 21:00 03/06/21 20:51 Trazodone HCl (Desyrel) 50 mg QHS PO 02/15/21 21:00 03/06/21 20:50 Venlafaxine HCl (Effexor) 75 mg DAILY PO 02/16/21 09:00 03/06/21 09:19 Atorvastatin Calcium (Lipitor) 40 mg QHS PO 02/15/21 21:00 03/06/21 20:51 Quetiapine Fumarate (SEROquel) 12.5 mg QHS PO 02/16/21 21:00 03/06/21 20:51 Olanzapine (ZyPREXA ZYDIS) 2.5 mg PRN Q2HR PRN PO PSYCHOSIS 02/27/21 17:00 I have reviewed the current psychotropics carefully including drug interactions. Risk benefit ratio favors no change other than as noted in my dictated progress note. 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
--- NOTE | 2021-03-06 21:55 | PDOC ---
Exam Note: Leighton Note: Information from date of service 03/03/21 and my information from nursing staff for that date and review of labs and interim progress from 03/03/21 was incorporated into the note of 03/04. This note is a late entry for 03/05/2021 covers elements not covered in my initial note. Subjective: The patient was seen individually in the evening of 03/05/2021 with Kierra WOLF, discussed and reviewed the chart. The patient slept 5-1/[address] Moreira completed the neuropsychological testing today. The patient remains confused but pleasant and cooperative. Review of Systems: No CV, , pulmonary, eye, ENT system symptoms on review. Reliability poor. Mental Status Exam: The patient is oriented to herself. I met with her in the hallway outside her room. Insight and judgment, recent and remote memory, attention and concentration, fund of knowledge is poor consistent with her diagnoses. Laboratory Data: Reviewed. Impression: Major depressive disorder, severe. Major neurocognitive disorder, Alzheimer, vascular with delusion, depression, behavioral disturbance. Anxiety disorder unspecified. Plan: Continue current psychotropics from initial note. Assessment: Vital Signs/I&O: Vital Signs Date Time Temp Pulse Resp B/P (MAP) Pulse Ox O2 Delivery O2 Flow Rate FiO2 03/06/21 20:51 74 114/61 03/06/21 15:35 98.5 16 95 03/03/21 06:19 Room Air I & O 03/05/21 03/05/21 03/06/21 15:00 23:00 07:00 Intake Total 620 ml 610 ml Balance 620 ml 610 ml Current Medications: Meds: Current Medications Medications (Trade) Dose Ordered Sig/Manasa Route PRN Reason Start Time Stop Time Status Last Admin Dose Admin Acetaminophen (Tylenol) 650 mg PRN Q6HRS PRN PO MILD PAIN / TEMP > 100.3'F 02/15/21 14:45 Multi-Ingredient Ointment (Analgesic [place]) 1 anibal PRN QID PRN TP MUSCLE PAIN 02/15/21 14:45 Al Hydroxide/Mg Hydroxide (Mylanta Plus Xs) 15 ml PRN AFTMEALHC PRN PO DYSPEPSIA 02/15/21 14:45 Magnesium Hydroxide (Milk Of Magnesia) 2,400 mg PRN QHS PRN PO CONSTIPATION 02/15/21 14:45 Influenza Virus Vaccine Quadrival (Flulaval Quad Syringe) 0.5 ml ONCE ONCE VAX IM 02/16/21 09:00 02/16/21 09:01 DC 02/16/21 09:40 Glipizide (Glucotrol) 2.5 mg DAILY PO 02/16/21 09:00 03/06/21 09:18 Lisinopril (Prinivil) 10 mg HS PO 02/15/21 21:00 03/06/21 20:51 Metoprolol Tartrate (Lopressor) 12.5 mg BID PO 02/15/21 21:00 03/06/21 20:51 Trazodone HCl (Desyrel) 50 mg QHS PO 02/15/21 21:00 03/06/21 20:50 Venlafaxine HCl (Effexor) 75 mg DAILY PO 02/16/21 09:00 03/06/21 09:19 Atorvastatin Calcium (Lipitor) 40 mg QHS PO 02/15/21 21:00 03/06/21 20:51 Quetiapine Fumarate (SEROquel) 12.5 mg QHS PO 02/16/21 21:00 03/06/21 20:51 Olanzapine (ZyPREXA ZYDIS) 2.5 mg PRN Q2HR PRN PO PSYCHOSIS 02/27/21 17:00 I have reviewed the current psychotropics carefully including drug interactions. Risk benefit ratio favors no change other than as noted in my dictated progress note. 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
[2021-03-07 06:23] VITALS: BP 143/71
[2021-03-07] MEDS: METOPROLOL TART IMMED RELEASE 25 MG TABLET. PO SCH ×2 (08:10→20:01)
[2021-03-07] MEDS: VENLAFAXINE 75 MG TABLET. PO SCH (08:10)
[2021-03-07] MEDS: glipiZIDE 5 MG TABLET PO SCH (08:10)
[2021-03-07 16:02] VITALS: BP 136/84
[2021-03-07] MEDS: LISINOPRIL 10 MG TABLET PO SCH (20:00)
[2021-03-07] MEDS: traZODone 50 MG TABLET. PO SCH (20:00)
[2021-03-07] MEDS: QUEtiapine 25 MG TABLET. PO SCH (20:01)
[2021-03-07] MEDS: ATORVASTATIN CALCIUM 20 MG TABLET PO SCH (20:02)
--- NOTE | 2021-03-07 22:06 | PDOC ---
Exam Note: Leighton Note: Please also refer to the separate dictated note~for this date of service dictated separately.~Patient seen individually. Discussed the patient with Nursing staff reviewed the chart.~Reviewed interim history and current functioning. Reviewed vital signs,~Labs/ Radiology~and current medications noted below. Continue current treatment with the changes noted in the dictated addendum note Assessment: Vital Signs/I&O: Vital Signs Date Time Temp Pulse Resp B/P (MAP) Pulse Ox O2 Delivery O2 Flow Rate FiO2 03/07/21 20:01 65 136/84 03/07/21 16:02 99.2 20 98 03/03/21 06:19 Room Air I & O 03/06/21 03/06/21 03/07/21 15:00 23:00 07:00 Intake Total 720 ml 600 ml Balance 720 ml 600 ml Labs: Laboratory Tests Test 03/07/21 06:30 SARS-CoV-2 (PCR) Not detected (NOT DETECTD) Current Medications: Meds: Laboratory Tests Test 03/07/21 06:30 Coronavirus (COVID-19)(PCR) Not detected Current Medications Medications (Trade) Dose Ordered Sig/Manasa Route PRN Reason Start Time Stop Time Status Last Admin Dose Admin Acetaminophen (Tylenol) 650 mg PRN Q6HRS PRN PO MILD PAIN / TEMP > 100.3'F 02/15/21 14:45 03/07/21 11:42 Multi-Ingredient Ointment (Analgesic [place]) 1 anibal PRN QID PRN TP MUSCLE PAIN 02/15/21 14:45 Al Hydroxide/Mg Hydroxide (Mylanta Plus Xs) 15 ml PRN AFTMEALHC PRN PO DYSPEPSIA 02/15/21 14:45 Magnesium Hydroxide (Milk Of Magnesia) 2,400 mg PRN QHS PRN PO CONSTIPATION 02/15/21 14:45 Influenza Virus Vaccine Quadrival (Flulaval Quad [id number] Syringe) 0.5 ml ONCE ONCE VAX IM 02/16/21 09:00 02/16/21 09:01 DC 02/16/21 09:40 Glipizide (Glucotrol) 2.5 mg DAILY PO 02/16/21 09:00 03/07/21 08:10 Lisinopril (Prinivil) 10 mg HS PO 02/15/21 21:00 03/07/21 20:00 Metoprolol Tartrate (Lopressor) 12.5 mg BID PO 02/15/21 21:00 03/07/21 20:01 Trazodone HCl (Desyrel) 50 mg QHS PO 02/15/21 21:00 03/07/21 20:00 Venlafaxine HCl (Effexor) 75 mg DAILY PO 02/16/21 09:00 03/07/21 08:10 Atorvastatin Calcium (Lipitor) 40 mg QHS PO 02/15/21 21:00 03/07/21 20:02 Quetiapine Fumarate (SEROquel) 12.5 mg QHS PO 02/16/21 21:00 03/07/21 20:01 Olanzapine (ZyPREXA ZYDIS) 2.5 mg PRN Q2HR PRN PO PSYCHOSIS 02/27/21 17:00 I have reviewed the current psychotropics carefully including drug interactions. Risk benefit ratio favors no change other than as noted in my dictated progress note. 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
[2021-03-08 06:14] VITALS: BP 142/70
[2021-03-08] MEDS: VENLAFAXINE 75 MG TABLET. PO SCH (08:17)
[2021-03-08] MEDS: METOPROLOL TART IMMED RELEASE 25 MG TABLET. PO SCH ×2 (08:19→20:13)
[2021-03-08] MEDS: glipiZIDE 5 MG TABLET PO SCH (08:19)
--- NOTE | 2021-03-08 09:58 | PDOC ---
Exam Note: Leighton Note: This note is a late entry for 03/06/2021 covers elements not covered in my initial note. Subjective: The patient was seen individually in the evening of 03/06/2021 with Ramonita WOLF, discussed and reviewed the chart. The patient slept 6-1/2 hours previous night. Overall she remains confused, but pleasant, interactive and smiling as I met with her. Review of Systems: No CV, , pulmonary, eye, ENT system symptoms on review. Reliability poor. Mental Status Exam: The patient is oriented to herself. Insight and judgment, recent and remote memory, attention and concentration, fund of knowledge is poor consistent with her diagnoses. Laboratory Data: Reviewed. Impression: Major depressive disorder, severe. Major neurocognitive disorder, Alzheimer, vascular with delusion, depression, behavioral disturbance. Anxiety disorder unspecified. Plan: Continue current psychotropics from initial note. Assessment: Vital Signs/I&O: Vital Signs Date Time Temp Pulse Resp B/P (MAP) Pulse Ox O2 Delivery O2 Flow Rate FiO2 03/08/21 08:19 64 142/70 03/08/21 06:14 97.4 20 97 03/03/21 06:19 Room Air I & O 03/07/21 03/07/21 03/08/21 15:00 23:00 07:00 Intake Total 860 ml 680 ml Balance 860 ml 680 ml Current Medications: Meds: Current Medications Medications (Trade) Dose Ordered Sig/Manasa Route PRN Reason Start Time Stop Time Status Last Admin Dose Admin Acetaminophen (Tylenol) 650 mg PRN Q6HRS PRN PO MILD PAIN / TEMP > 100.3'F 02/15/21 14:45 03/07/21 11:42 Multi-Ingredient Ointment (Analgesic [place]) 1 anibal PRN QID PRN TP MUSCLE PAIN 02/15/21 14:45 Al Hydroxide/Mg Hydroxide (Mylanta Plus Xs) 15 ml PRN AFTMEALHC PRN PO DYSPEPSIA 02/15/21 14:45 Magnesium Hydroxide (Milk Of Magnesia) 2,400 mg PRN QHS PRN PO CONSTIPATION 02/15/21 14:45 Influenza Virus Vaccine Quadrival (Flulaval Quad Syringe) 0.5 ml ONCE ONCE VAX IM 02/16/21 09:00 02/16/21 09:01 DC 02/16/21 09:40 Glipizide (Glucotrol) 2.5 mg DAILY PO 02/16/21 09:00 03/08/21 08:19 Lisinopril (Prinivil) 10 mg HS PO 02/15/21 21:00 03/07/21 20:00 Metoprolol Tartrate (Lopressor) 12.5 mg BID PO 02/15/21 21:00 03/08/21 08:19 Trazodone HCl (Desyrel) 50 mg QHS PO 02/15/21 21:00 03/07/21 20:00 Venlafaxine HCl (Effexor) 75 mg DAILY PO 02/16/21 09:00 03/08/21 08:17 Atorvastatin Calcium (Lipitor) 40 mg QHS PO 02/15/21 21:00 03/07/21 20:02 Quetiapine Fumarate (SEROquel) 12.5 mg QHS PO 02/16/21 21:00 03/07/21 20:01 Olanzapine (ZyPREXA ZYDIS) 2.5 mg PRN Q2HR PRN PO PSYCHOSIS 02/27/21 17:00 I have reviewed the current psychotropics carefully including drug interactions. Risk benefit ratio favors no change other than as noted in my dictated progress note. 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
[2021-03-08 15:56] VITALS: BP 160/76
[2021-03-08] MEDS: LISINOPRIL 10 MG TABLET PO SCH (20:12)
[2021-03-08] MEDS: traZODone 50 MG TABLET. PO SCH (20:13)
[2021-03-08] MEDS: ATORVASTATIN CALCIUM 20 MG TABLET PO SCH (20:14)
[2021-03-08] MEDS: QUEtiapine 25 MG TABLET. PO SCH (20:14)
--- NOTE | 2021-03-08 21:54 | PDOC ---
Exam Note: Leighton Note: Please also refer to the separate dictated note~for this date of service dictated separately.~Patient seen individually. Discussed the patient with Nursing staff reviewed the chart.~Reviewed interim history and current functioning. Reviewed vital signs,~Labs/ Radiology~and current medications noted below. Continue current treatment with the changes noted in the dictated addendum note Assessment: Vital Signs/I&O: Vital Signs Date Time Temp Pulse Resp B/P (MAP) Pulse Ox O2 Delivery O2 Flow Rate FiO2 03/08/21 20:13 76 160/76 03/08/21 15:56 97.9 18 99 03/03/21 06:19 Room Air I & O 03/07/21 03/07/21 03/08/21 15:00 23:00 07:00 Intake Total 860 ml 680 ml Balance 860 ml 680 ml Current Medications: Meds: Current Medications Medications (Trade) Dose Ordered Sig/Manasa Route PRN Reason Start Time Stop Time Status Last Admin Dose Admin Acetaminophen (Tylenol) 650 mg PRN Q6HRS PRN PO MILD PAIN / TEMP > 100.3'F 02/15/21 14:45 03/07/21 11:42 Multi-Ingredient Ointment (Analgesic [place]) 1 anibal PRN QID PRN TP MUSCLE PAIN 02/15/21 14:45 Al Hydroxide/Mg Hydroxide (Mylanta Plus Xs) 15 ml PRN AFTMEALHC PRN PO DYSPEPSIA 02/15/21 14:45 Magnesium Hydroxide (Milk Of Magnesia) 2,400 mg PRN QHS PRN PO CONSTIPATION 02/15/21 14:45 Influenza Virus Vaccine Quadrival (Flulaval Quad [id number] Syringe) 0.5 ml ONCE ONCE VAX IM 02/16/21 09:00 02/16/21 09:01 DC 02/16/21 09:40 Glipizide (Glucotrol) 2.5 mg DAILY PO 02/16/21 09:00 03/08/21 08:19 Lisinopril (Prinivil) 10 mg HS PO 02/15/21 21:00 03/08/21 20:12 Metoprolol Tartrate (Lopressor) 12.5 mg BID PO 02/15/21 21:00 03/08/21 20:13 Trazodone HCl (Desyrel) 50 mg QHS PO 02/15/21 21:00 03/08/21 20:13 Venlafaxine HCl (Effexor) 75 mg DAILY PO 02/16/21 09:00 03/08/21 08:17 Atorvastatin Calcium (Lipitor) 40 mg QHS PO 02/15/21 21:00 03/08/21 20:14 Quetiapine Fumarate (SEROquel) 12.5 mg QHS PO 02/16/21 21:00 03/08/21 20:14 Olanzapine (ZyPREXA ZYDIS) 2.5 mg PRN Q2HR PRN PO PSYCHOSIS 02/27/21 17:00 I have reviewed the current psychotropics carefully including drug interactions. Risk benefit ratio favors no change other than as noted in my dictated progress note. 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
[2021-03-09 06:01] VITALS: BP 140/82
[2021-03-09] MEDS: glipiZIDE 5 MG TABLET PO SCH (08:33)
[2021-03-09] MEDS: VENLAFAXINE 75 MG TABLET. PO SCH (08:34)
[2021-03-09] MEDS: METOPROLOL TART IMMED RELEASE 25 MG TABLET. PO SCH ×2 (08:34→20:45)
[2021-03-09 15:35] VITALS: BP 147/83
--- NOTE | 2021-03-09 20:31 | PDOC ---
Exam Note: Leighton Note: This note is a late entry for 03/07/2021 covers elements not covered in my initial note. Subjective: The patient was seen individually in the evening of 03/07/2021 with Jacqui WOLF, discussed and reviewed the chart. The patient slept 7 hours previous night. She remains confused, but redirects. She was seen in her room. Review of Systems: No CV, , pulmonary, eye, ENT system symptoms on review. Reliability poor. Mental Status Exam: The patient is oriented to herself. Insight and judgment, recent and remote memory, attention and concentration, fund of knowledge is poor consistent with her diagnoses. Laboratory Data: Reviewed. Impression: Major depressive disorder, severe. Major neurocognitive disorder, Alzheimer, vascular with delusion, depression, behavioral disturbance. Anxiety disorder unspecified. Plan: Continue current psychotropics from initial note. Assessment: Vital Signs/I&O: Vital Signs Date Time Temp Pulse Resp B/P (MAP) Pulse Ox O2 Delivery O2 Flow Rate FiO2 03/09/21 15:35 98.3 101 18 147/83 (104) 94 03/09/21 06:01 Room Air I & O 03/08/21 03/08/21 03/09/21 15:00 23:00 07:00 Intake Total 360 ml 480 ml Balance 360 ml 480 ml Current Medications: Meds: Current Medications Medications (Trade) Dose Ordered Sig/Manasa Route PRN Reason Start Time Stop Time Status Last Admin Dose Admin Acetaminophen (Tylenol) 650 mg PRN Q6HRS PRN PO MILD PAIN / TEMP > 100.3'F 02/15/21 14:45 03/07/21 11:42 Multi-Ingredient Ointment (Analgesic [place]) 1 anibal PRN QID PRN TP MUSCLE PAIN 02/15/21 14:45 Al Hydroxide/Mg Hydroxide (Mylanta Plus Xs) 15 ml PRN AFTMEALHC PRN PO DYSPEPSIA 02/15/21 14:45 Magnesium Hydroxide (Milk Of Magnesia) 2,400 mg PRN QHS PRN PO CONSTIPATION 02/15/21 14:45 Influenza Virus Vaccine Quadrival (Flulaval Quad Syringe) 0.5 ml ONCE ONCE VAX IM 02/16/21 09:00 02/16/21 09:01 DC 02/16/21 09:40 Glipizide (Glucotrol) 2.5 mg DAILY PO 02/16/21 09:00 03/09/21 08:33 Lisinopril (Prinivil) 10 mg HS PO 02/15/21 21:00 03/08/21 20:12 Metoprolol Tartrate (Lopressor) 12.5 mg BID PO 02/15/21 21:00 03/09/21 08:34 Trazodone HCl (Desyrel) 50 mg QHS PO 02/15/21 21:00 03/08/21 20:13 Venlafaxine HCl (Effexor) 75 mg DAILY PO 02/16/21 09:00 03/09/21 08:34 Atorvastatin Calcium (Lipitor) 40 mg QHS PO 02/15/21 21:00 03/08/21 20:14 Quetiapine Fumarate (SEROquel) 12.5 mg QHS PO 02/16/21 21:00 03/08/21 20:14 Olanzapine (ZyPREXA ZYDIS) 2.5 mg PRN Q2HR PRN PO PSYCHOSIS 02/27/21 17:00 I have reviewed the current psychotropics carefully including drug interactions. Risk benefit ratio favors no change other than as noted in my dictated progress note. 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
[2021-03-09] MEDS: QUEtiapine 25 MG TABLET. PO SCH (20:45)
[2021-03-09] MEDS: ATORVASTATIN CALCIUM 20 MG TABLET PO SCH (20:45)
[2021-03-09] MEDS: traZODone 50 MG TABLET. PO SCH (20:45)
[2021-03-09] MEDS: LISINOPRIL 10 MG TABLET PO SCH (20:46)
--- NOTE | 2021-03-09 21:03 | PDOC ---
Exam Note: Leighton Note: Please also refer to the separate dictated note~for this date of service dictated separately.~Patient seen individually. Discussed the patient with Nursing staff reviewed the chart.~Reviewed interim history and current functioning. Reviewed vital signs,~Labs/ Radiology~and current medications noted below. Continue current treatment with the changes noted in the dictated addendum note Assessment: Vital Signs/I&O: Vital Signs Date Time Temp Pulse Resp B/P (MAP) Pulse Ox O2 Delivery O2 Flow Rate FiO2 03/09/21 20:46 101 147/83 03/09/21 15:35 98.3 18 94 03/09/21 06:01 Room Air I & O 03/08/21 03/08/21 03/09/21 15:00 23:00 07:00 Intake Total 360 ml 480 ml Balance 360 ml 480 ml Current Medications: I have reviewed the current psychotropics carefully including drug interactions. Risk benefit ratio favors no change other than as noted in my dictated progress note. 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
--- NOTE | 2021-03-09 21:03 | PDOC ---
Exam Note: Leighton Note: This note is a late entry for 03/08/2021 covers elements not covered in my initial note. Subjective: The patient was seen individually in the evening of 03/08/2021 with Shravan WOLF, discussed and reviewed the chart. The patient slept 7-1/2 hours previous night. She did well in the morning. Daughter told her that she would be moving to an assisted living. Patient did not seem to remember this. She did refuse lunch and had a telephone call with her . Review of Systems: No CV, , pulmonary, eye, ENT system symptoms on review. Reliability poor. Mental Status Exam: The patient is oriented to herself. Insight and judgment, recent and remote memory, attention and concentration, fund of knowledge is poor consistent with her diagnoses. Laboratory Data: Reviewed. Impression: Major depressive disorder, severe. Major neurocognitive disorder, Alzheimer, vascular with delusion, depression, behavioral disturbance. Anxiety disorder unspecified. Plan: Continue current psychotropics from initial note. Assessment: Vital Signs/I&O: Vital Signs Date Time Temp Pulse Resp B/P (MAP) Pulse Ox O2 Delivery O2 Flow Rate FiO2 03/09/21 20:46 101 147/83 03/09/21 15:35 98.3 18 94 03/09/21 06:01 Room Air I & O 03/08/21 03/08/21 03/09/21 15:00 23:00 07:00 Intake Total 360 ml 480 ml Balance 360 ml 480 ml Current Medications: Meds: Current Medications Medications (Trade) Dose Ordered Sig/Manasa Route PRN Reason Start Time Stop Time Status Last Admin Dose Admin Acetaminophen (Tylenol) 650 mg PRN Q6HRS PRN PO MILD PAIN / TEMP > 100.3'F 02/15/21 14:45 03/07/21 11:42 Multi-Ingredient Ointment (Analgesic [place]) 1 anibal PRN QID PRN TP MUSCLE PAIN 02/15/21 14:45 Al Hydroxide/Mg Hydroxide (Mylanta Plus Xs) 15 ml PRN AFTMEALHC PRN PO DYSPEPSIA 02/15/21 14:45 Magnesium Hydroxide (Milk Of Magnesia) 2,400 mg PRN QHS PRN PO CONSTIPATION 02/15/21 14:45 Influenza Virus Vaccine Quadrival (Flulaval Quad Syringe) 0.5 ml ONCE ONCE VAX IM 02/16/21 09:00 02/16/21 09:01 DC 02/16/21 09:40 Glipizide (Glucotrol) 2.5 mg DAILY PO 02/16/21 09:00 03/09/21 08:33 Lisinopril (Prinivil) 10 mg HS PO 02/15/21 21:00 03/09/21 20:46 Metoprolol Tartrate (Lopressor) 12.5 mg BID PO 02/15/21 21:00 03/09/21 20:45 Trazodone HCl (Desyrel) 50 mg QHS PO 02/15/21 21:00 03/09/21 20:45 Venlafaxine HCl (Effexor) 75 mg DAILY PO 02/16/21 09:00 03/09/21 08:34 Atorvastatin Calcium (Lipitor) 40 mg QHS PO 02/15/21 21:00 03/09/21 20:45 Quetiapine Fumarate (SEROquel) 12.5 mg QHS PO 02/16/21 21:00 03/09/21 20:45 Olanzapine (ZyPREXA ZYDIS) 2.5 mg PRN Q2HR PRN PO PSYCHOSIS 02/27/21 17:00 I have reviewed the current psychotropics carefully including drug interactions. Risk benefit ratio favors no change other than as noted in my dictated progress note. 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
[2021-03-10 06:31] VITALS: BP 148/77
[2021-03-10] MEDS: METOPROLOL TART IMMED RELEASE 25 MG TABLET. PO SCH ×2 (09:17→19:50)
[2021-03-10] MEDS: VENLAFAXINE 75 MG TABLET. PO SCH (09:17)
[2021-03-10] MEDS: glipiZIDE 5 MG TABLET PO SCH (09:18)
[2021-03-10 11:38] LABS: BASO % 0 % (0-3); EOS # 0.1 x10^3/uL (0.0-0.7); EOS % 1 % (0-3); HEMATOCRIT 40.3 % (36.0-47.0); HEMOGLOBIN 13.2 g/dL (12.0-15.5); LYMPH # 1.5 x10^3/uL (1.0-4.8); LYMPH % 23 % (24-48); MEAN CORPUSCULAR HEMOGLOBIN 30 pg (25-35); MEAN CORPUSCULAR HGB CONC 33 g/dL (31-37); MEAN CORPUSCULAR VOLUME 91 fL (79-100); MONO # 0.5 x10^3/uL (0.0-1.1); MONO % 7 % (0-9); NEUT # 4.5 x10^3uL (1.8-7.7); NEUT % 69 % (31-73); PLATELET COUNT 212 x10^3/uL (140-400); RED BLOOD COUNT 4.43 x10^6/uL (3.50-5.40); RED CELL DISTRIBUTION WIDTH 14.7 % (11.5-14.5); WHITE BLOOD COUNT 6.5 x10^3/uL (4.0-11.0)
[2021-03-10 14:35] LABS: ALBUMIN 3.4 g/dL (3.4-5.0); CREATININE 0.9 mg/dL (0.6-1.0); POTASSIUM 4.1 mmol/L (3.5-5.1); TOTAL BILIRUBIN 0.5 mg/dL (0.2-1.0); TOTAL PROTEIN 6.7 g/dL (6.4-8.2)
[2021-03-10 16:18] VITALS: BP 128/70
[2021-03-10] MEDS: traZODone 50 MG TABLET. PO SCH (19:49)
[2021-03-10] MEDS: LISINOPRIL 10 MG TABLET PO SCH (19:49)
[2021-03-10] MEDS: QUEtiapine 25 MG TABLET. PO SCH (19:51)
[2021-03-10] MEDS: ATORVASTATIN CALCIUM 20 MG TABLET PO SCH (19:52)
--- NOTE | 2021-03-10 20:35 | PDOC ---
Exam Note: Leighton Note: Please also refer to the separate dictated note~for this date of service dictated separately.~Patient seen individually. Discussed the patient with Nursing staff reviewed the chart.~Reviewed interim history and current functioning. Reviewed vital signs,~Labs/ Radiology~and current medications noted below. Continue current treatment with the changes noted in the dictated addendum note Assessment: Vital Signs/I&O: Vital Signs Date Time Temp Pulse Resp B/P (MAP) Pulse Ox O2 Delivery O2 Flow Rate FiO2 03/10/21 19:50 82 137/74 03/10/21 16:18 98.2 16 98 Room Air I & O 03/09/21 03/09/21 03/10/21 15:00 23:00 07:00 Intake Total 840 ml 480 ml Balance 840 ml 480 ml Labs: Laboratory Tests Test 03/10/21 11:00 White Blood Count 6.5 x10^3/uL (4.0-11.0) Red Blood Count 4.43 x10^6/uL (3.50-5.40) Hemoglobin 13.2 g/dL (12.0-15.5) Hematocrit 40.3 % (36.0-47.0) Mean Corpuscular Volume 91 fL (79-100) Mean Corpuscular Hemoglobin 30 pg (25-35) Mean Corpuscular Hemoglobin Concent 33 g/dL (31-37) Red Cell Distribution Width 14.7 % (11.5-14.5) H Platelet Count 212 x10^3/uL (140-400) Neutrophils (%) (Auto) 69 % (31-73) Lymphocytes (%) (Auto) 23 % (24-48) L Monocytes (%) (Auto) 7 % (0-9) Eosinophils (%) (Auto) 1 % (0-3) Basophils (%) (Auto) 0 % (0-3) Neutrophils # (Auto) 4.5 x10^3uL (1.8-7.7) Lymphocytes # (Auto) 1.5 x10^3/uL (1.0-4.8) Monocytes # (Auto) 0.5 x10^3/uL (0.0-1.1) Eosinophils # (Auto) 0.1 x10^3/uL (0.0-0.7) Basophils # (Auto) 0.0 x10^3/uL (0.0-0.2) Sodium Level 137 mmol/L (136-145) Potassium Level 4.1 mmol/L (3.5-5.1) Chloride Level 102 mmol/L (98-107) Carbon Dioxide Level 28 mmol/L (21-32) Anion Gap 7 (6-14) Blood Urea Nitrogen 23 mg/dL (7-20) H Creatinine 0.9 mg/dL (0.6-1.0) Estimated GFR (Cockcroft-Gault) 61.0 BUN/Creatinine Ratio 26 (6-20) H Glucose Level 192 mg/dL (70-99) H Calcium Level 9.0 mg/dL (8.5-10.1) Total Bilirubin 0.5 mg/dL (0.2-1.0) Aspartate Amino Transferase (AST) 23 U/L (15-37) Alanine Aminotransferase (ALT) 33 U/L (14-59) Alkaline Phosphatase 44 U/L (46-116) L Total Protein 6.7 g/dL (6.4-8.2) Albumin 3.4 g/dL (3.4-5.0) Albumin/Globulin Ratio 1.0 (1.0-1.7) Current Medications: Meds: Laboratory Tests Test 03/10/21 11:00 White Blood Count 6.5 x10^3/uL Red Blood Count 4.43 x10^6/uL Hemoglobin 13.2 g/dL Hematocrit 40.3 % Mean Corpuscular Volume 91 fL Mean Corpuscular Hemoglobin 30 pg Mean Corpuscular Hemoglobin Concent 33 g/dL Red Cell Distribution Width 14.7 % Platelet Count 212 x10^3/uL Neutrophils (%) (Auto) 69 % Lymphocytes (%) (Auto) 23 % Monocytes (%) (Auto) 7 % Eosinophils (%) (Auto) 1 % Basophils (%) (Auto) 0 % Neutrophils # (Auto) 4.5 x10^3uL Lymphocytes # (Auto) 1.5 x10^3/uL Monocytes # (Auto) 0.5 x10^3/uL Eosinophils # (Auto) 0.1 x10^3/uL Basophils # (Auto) 0.0 x10^3/uL Sodium Level 137 mmol/L Potassium Level 4.1 mmol/L Chloride Level 102 mmol/L Carbon Dioxide Level 28 mmol/L Anion Gap 7 Blood Urea Nitrogen 23 mg/dL Creatinine 0.9 mg/dL Estimated GFR (Cockcroft-Gault) 61.0 BUN/Creatinine Ratio 26 Glucose Level 192 mg/dL Calcium Level 9.0 mg/dL Total Bilirubin 0.5 mg/dL Aspartate Amino Transf (AST/SGOT) 23 U/L Alanine Aminotransferase (ALT/SGPT) 33 U/L Alkaline Phosphatase 44 U/L Total Protein 6.7 g/dL Albumin 3.4 g/dL Albumin/Globulin Ratio 1.0 Current Medications Medications (Trade) Dose Ordered Sig/Manasa Route PRN Reason Start Time Stop Time Status Last Admin Dose Admin Acetaminophen (Tylenol) 650 mg PRN Q6HRS PRN PO MILD PAIN / TEMP > 100.3'F 02/15/21 14:45 03/07/21 11:42 Multi-Ingredient Ointment (Analgesic [place]) 1 anibal PRN QID PRN TP MUSCLE PAIN 02/15/21 14:45 Al Hydroxide/Mg Hydroxide (Mylanta Plus Xs) 15 ml PRN AFTMEALHC PRN PO DYSPEPSIA 02/15/21 14:45 Magnesium Hydroxide (Milk Of Magnesia) 2,400 mg PRN QHS PRN PO CONSTIPATION 02/15/21 14:45 Influenza Virus Vaccine Quadrival (Flulaval Quad [id number] Syringe) 0.5 ml ONCE ONCE VAX IM 02/16/21 09:00 02/16/21 09:01 DC 02/16/21 09:40 Glipizide (Glucotrol) 2.5 mg DAILY PO 02/16/21 09:00 03/10/21 09:18 Lisinopril (Prinivil) 10 mg HS PO 02/15/21 21:00 03/10/21 19:49 Metoprolol Tartrate (Lopressor) 12.5 mg BID PO 02/15/21 21:00 03/10/21 19:50 Trazodone HCl (Desyrel) 50 mg QHS PO 02/15/21 21:00 03/10/21 19:49 Venlafaxine HCl (Effexor) 75 mg DAILY PO 02/16/21 09:00 03/10/21 09:17 Atorvastatin Calcium (Lipitor) 40 mg QHS PO 02/15/21 21:00 03/10/21 19:52 Quetiapine Fumarate (SEROquel) 12.5 mg QHS PO 02/16/21 21:00 03/10/21 19:51 Olanzapine (ZyPREXA ZYDIS) 2.5 mg PRN Q2HR PRN PO PSYCHOSIS 02/27/21 17:00 I have reviewed the current psychotropics carefully including drug interactions. Risk benefit ratio favors no change other than as noted in my dictated progress note. 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
[2021-03-10] MEDS ORDERED: MAG-124 PO (22:29)
[2021-03-10] MEDS ORDERED: ACET325T9 PO (22:29)
[2021-03-10] MEDS ORDERED: METH57CR17 TP (22:30)
[2021-03-10] MEDS ORDERED: MAGN24003 PO (22:30)
[2021-03-10] MEDS ORDERED: OLAN5TAB99 PO (22:31)
[2021-03-10] MEDS ORDERED: QUET25TA5 PO (22:32)
[2021-03-11 06:06] VITALS: BP 126/96
[2021-03-11 08:19] VITALS: BP 126/96
[2021-03-11] MEDS: METOPROLOL TART IMMED RELEASE 25 MG TABLET. PO SCH (08:19)
[2021-03-11] MEDS: glipiZIDE 5 MG TABLET PO SCH (08:19)
[2021-03-11] MEDS: VENLAFAXINE 75 MG TABLET. PO SCH (08:19)
--- NOTE | 2021-03-11 20:52 | PDOC ---
Exam Note: Leighton Note: This note is a late entry for 03/09/2021 covers elements not covered in my initial note. Subjective: The patient was seen individually in the evening of 03/09/2021 with Shravan WOLF, discussed and reviewed the chart. The patient slept 6-1/2 hours previous night. I met with her in the hallway. She remains confused, oblivious about possible placement and had forgotten that her daughter had talked to her about it. I did question her on this. Review of Systems: No CV, , pulmonary, eye, ENT system symptoms on review. Reliability poor. Mental Status Exam: The patient is oriented to herself. Insight and judgment, recent and remote memory, attention and concentration, fund of knowledge is poor consistent with her diagnoses. Laboratory Data: Reviewed. Impression: Major depressive disorder, severe. Major neurocognitive disorder, Alzheimer, vascular with delusion, depression, behavioral disturbance. Anxiety disorder unspecified. Plan: Continue current psychotropics from initial note. Assessment: Vital Signs/I&O: Vital Signs Date Time Temp Pulse Resp B/P (MAP) Pulse Ox O2 Delivery O2 Flow Rate FiO2 03/11/21 08:19 76 126/96 03/11/21 06:06 98.6 18 94 Room Air I & O 03/10/21 03/10/21 03/11/21 15:00 23:00 07:00 Intake Total 960 ml 360 ml Balance 960 ml 360 ml Current Medications: Meds: Current Medications Medications (Trade) Dose Ordered Sig/Manasa Route PRN Reason Start Time Stop Time Status Last Admin Dose Admin Acetaminophen (Tylenol) 650 mg PRN Q6HRS PRN PO MILD PAIN / TEMP > 100.3'F 02/15/21 14:45 03/11/21 14:16 DC 03/07/21 11:42 Multi-Ingredient Ointment (Analgesic [place]) 1 anibal PRN QID PRN TP MUSCLE PAIN 02/15/21 14:45 03/11/21 14:16 DC Al Hydroxide/Mg Hydroxide (Mylanta Plus Xs) 15 ml PRN AFTMEALHC PRN PO DYSPEPSIA 02/15/21 14:45 03/11/21 14:16 DC Magnesium Hydroxide (Milk Of Magnesia) 2,400 mg PRN QHS PRN PO CONSTIPATION 02/15/21 14:45 03/11/21 14:16 DC Influenza Virus Vaccine Quadrival (Flulaval Quad Syringe) 0.5 ml ONCE ONCE VAX IM 02/16/21 09:00 02/16/21 09:01 DC 02/16/21 09:40 Glipizide (Glucotrol) 2.5 mg DAILY PO 02/16/21 09:00 03/11/21 14:16 DC 03/11/21 08:19 Lisinopril (Prinivil) 10 mg HS PO 02/15/21 21:00 03/11/21 14:16 DC 03/10/21 19:49 Metoprolol Tartrate (Lopressor) 12.5 mg BID PO 02/15/21 21:00 03/11/21 14:16 DC 03/11/21 08:19 Trazodone HCl (Desyrel) 50 mg QHS PO 02/15/21 21:00 03/11/21 14:16 DC 03/10/21 19:49 Venlafaxine HCl (Effexor) 75 mg DAILY PO 02/16/21 09:00 03/11/21 14:16 DC 03/11/21 08:19 Atorvastatin Calcium (Lipitor) 40 mg QHS PO 02/15/21 21:00 03/11/21 14:16 DC 03/10/21 19:52 Quetiapine Fumarate (SEROquel) 12.5 mg QHS PO 02/16/21 21:00 03/11/21 14:16 DC 03/10/21 19:51 Olanzapine (ZyPREXA ZYDIS) 2.5 mg PRN Q2HR PRN PO PSYCHOSIS 02/27/21 17:00 03/11/21 14:16 DC I have reviewed the current psychotropics carefully including drug interactions. Risk benefit ratio favors no change other than as noted in my dictated progress note. 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
--- NOTE | 2021-03-11 21:13 | PDOC ---
Exam Note: Leighton Note: Please also refer to the separate dictated note~for this date of service dictated separately.~Patient seen individually. Discussed the patient with Nursing staff reviewed the chart.~Reviewed interim history and current functioning. Reviewed vital signs,~Labs/ Radiology~and current medications noted below. Continue current treatment with the changes noted in the dictated addendum note Assessment: Vital Signs/I&O: Vital Signs Date Time Temp Pulse Resp B/P (MAP) Pulse Ox O2 Delivery O2 Flow Rate FiO2 03/11/21 08:19 76 126/96 03/11/21 06:06 98.6 18 94 Room Air I & O 03/10/21 03/10/21 03/11/21 15:00 23:00 07:00 Intake Total 960 ml 360 ml Balance 960 ml 360 ml Current Medications: Meds: Current Medications Medications (Trade) Dose Ordered Sig/Manasa Route PRN Reason Start Time Stop Time Status Last Admin Dose Admin Acetaminophen (Tylenol) 650 mg PRN Q6HRS PRN PO MILD PAIN / TEMP > 100.3'F 02/15/21 14:45 03/11/21 14:16 DC 03/07/21 11:42 Multi-Ingredient Ointment (Analgesic [place]) 1 anibal PRN QID PRN TP MUSCLE PAIN 02/15/21 14:45 03/11/21 14:16 DC Al Hydroxide/Mg Hydroxide (Mylanta Plus Xs) 15 ml PRN AFTMEALHC PRN PO DYSPEPSIA 02/15/21 14:45 03/11/21 14:16 DC Magnesium Hydroxide (Milk Of Magnesia) 2,400 mg PRN QHS PRN PO CONSTIPATION 02/15/21 14:45 03/11/21 14:16 DC Influenza Virus Vaccine Quadrival (Flulaval Quad [id number] Syringe) 0.5 ml ONCE ONCE VAX IM 02/16/21 09:00 02/16/21 09:01 DC 02/16/21 09:40 Glipizide (Glucotrol) 2.5 mg DAILY PO 02/16/21 09:00 03/11/21 14:16 DC 03/11/21 08:19 Lisinopril (Prinivil) 10 mg HS PO 02/15/21 21:00 03/11/21 14:16 DC 11/7/21 19:49 Metoprolol Tartrate (Lopressor) 12.5 mg BID PO 02/15/21 21:00 03/11/21 14:16 DC 03/11/21 08:19 Trazodone HCl (Desyrel) 50 mg QHS PO 02/15/21 21:00 03/11/21 14:16 DC 03/10/21 19:49 Venlafaxine HCl (Effexor) 75 mg DAILY PO 02/16/21 09:00 03/11/21 14:16 DC 03/11/21 08:19 Atorvastatin Calcium (Lipitor) 40 mg QHS PO 02/15/21 21:00 03/11/21 14:16 DC 03/10/21 19:52 Quetiapine Fumarate (SEROquel) 12.5 mg QHS PO 02/16/21 21:00 03/11/21 14:16 DC 03/10/21 19:51 Olanzapine (ZyPREXA ZYDIS) 2.5 mg PRN Q2HR PRN PO PSYCHOSIS 02/27/21 17:00 03/11/21 14:16 DC I have reviewed the current psychotropics carefully including drug interactions. Risk benefit ratio favors no change other than as noted in my dictated progress note. 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
--- NOTE | 2021-03-11 21:13 | PDOC ---
Exam Note: Leighton Note: This note is a late entry for 03/10/2021 covers elements not covered in my initial note. Subjective: The patient was seen individually in the evening of 03/10/2021 with Wes WOLF, discussed and reviewed the chart. The patient slept 7-1/4 hours previous night. She remains confused, wandering the hallways on the unit. Review of Systems: No CV, , pulmonary, eye, ENT system symptoms on review. Reliability poor. Mental Status Exam: The patient is oriented to herself. Insight and judgment, recent and remote memory, attention and concentration, fund of knowledge is poor consistent with her diagnoses. Laboratory Data: Reviewed. Impression: Major depressive disorder, severe. Major neurocognitive disorder, Alzheimer, vascular with delusion, depression, behavioral disturbance. Anxiety disorder unspecified. Plan: Continue current psychotropics from initial note. Assessment: Vital Signs/I&O: Vital Signs Date Time Temp Pulse Resp B/P (MAP) Pulse Ox O2 Delivery O2 Flow Rate FiO2 03/11/21 08:19 76 126/96 03/11/21 06:06 98.6 18 94 Room Air I & O 03/10/21 03/10/21 03/11/21 15:00 23:00 07:00 Intake Total 960 ml 360 ml Balance 960 ml 360 ml Current Medications: Meds: Current Medications Medications (Trade) Dose Ordered Sig/Manasa Route PRN Reason Start Time Stop Time Status Last Admin Dose Admin Acetaminophen (Tylenol) 650 mg PRN Q6HRS PRN PO MILD PAIN / TEMP > 100.3'F 02/15/21 14:45 03/11/21 14:16 DC 03/07/21 11:42 Multi-Ingredient Ointment (Analgesic [place]) 1 anibal PRN QID PRN TP MUSCLE PAIN 02/15/21 14:45 03/11/21 14:16 DC Al Hydroxide/Mg Hydroxide (Mylanta Plus Xs) 15 ml PRN AFTMEALHC PRN PO DYSPEPSIA 02/15/21 14:45 03/11/21 14:16 DC Magnesium Hydroxide (Milk Of Magnesia) 2,400 mg PRN QHS PRN PO CONSTIPATION 02/15/21 14:45 03/11/21 14:16 DC Influenza Virus Vaccine Quadrival (Flulaval Quad Syringe) 0.5 ml ONCE ONCE VAX IM 02/16/21 09:00 02/16/21 09:01 DC 02/16/21 09:40 Glipizide (Glucotrol) 2.5 mg DAILY PO 02/16/21 09:00 03/11/21 14:16 DC 03/11/21 08:19 Lisinopril (Prinivil) 10 mg HS PO 02/15/21 21:00 03/11/21 14:16 DC 03/10/21 19:49 Metoprolol Tartrate (Lopressor) 12.5 mg BID PO 02/15/21 21:00 03/11/21 14:16 DC 03/11/21 08:19 Trazodone HCl (Desyrel) 50 mg QHS PO 02/15/21 21:00 03/11/21 14:16 DC 03/10/21 19:49 Venlafaxine HCl (Effexor) 75 mg DAILY PO 02/16/21 09:00 03/11/21 14:16 DC 03/11/21 08:19 Atorvastatin Calcium (Lipitor) 40 mg QHS PO 02/15/21 21:00 03/11/21 14:16 DC 03/10/21 19:52 Quetiapine Fumarate (SEROquel) 12.5 mg QHS PO 02/16/21 21:00 03/11/21 14:16 DC 03/10/21 19:51 Olanzapine (ZyPREXA ZYDIS) 2.5 mg PRN Q2HR PRN PO PSYCHOSIS 02/27/21 17:00 03/11/21 14:16 DC I have reviewed the current psychotropics carefully including drug interactions. Risk benefit ratio favors no change other than as noted in my dictated progress note. 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
--- NOTE | 2021-03-13 20:39 | DS ---
DATE OF DISCHARGE: 03/11/2021 DISCHARGE SUMMARY/PSYCHIATRIC PROGRESS NOTE This is a late entry, date of service, 03/11/2021 covers elements not covered in my initial note. REASON FOR ADMISSION: Please refer to the admission history for details. Briefly, the patient is a 76-year-old female referred to us from Emergency Room at [facility] where she presented from home with worsening confusion, depression, suicidal ideation. She had made the motion of a gun putting it to her head. She was depressed. She was reportedly having visual hallucinations of dogs and people. She is verbally aggressive, hearing voices that she needs to clean things or she will be beheaded. She had marked insomnia, had failed outpatient psychiatric interventions. Behaviors were unmanageable at home and she is referred for inpatient psychiatric stabilization. SIGNIFICANT FINDINGS AND CLINICAL COURSE: Following admission, the patient was seen daily individually by myself from a psychiatric standpoint, medical followup with Dr. Hardy/Dr. Corrigan. The patient was quite confused at admission, depressed, psychotic. Adjustments were made in her psychotropic. She seemed to respond to a combination of Seroquel 12.5 mg at bedtime, Effexor 75 mg a day, trazodone 50 mg at bedtime, and Zyprexa p.r.n. Gradually, mood appeared to improve. Psychotic symptoms subsided. She remained confused. The daughter was the DPOA and made arrangements for her to be transitioned to a lower level of care rather than returning home. REVIEW OF SYSTEMS: Prior to discharge, no CV, , pulmonary, eye, ENT system symptoms on review. Reliability poor. MENTAL STATUS EXAMINATION: Oriented to herself. Insight, judgment, recent and remote memory, attention, concentration, fund of knowledge poor consistent with her diagnoses. FINAL DIAGNOSES: Major neurocognitive disorder, Alzheimer vascular with delusion, depression, behavioral disturbance, anxiety disorder, unspecified; impulse control disorder, unspecified. Rest unchanged from admission. DISCHARGE MEDICATIONS: Please refer to the [facility]. DISCHARGE INSTRUCTIONS: Outpatient psychiatric and medical followup at the longterm. Time for discharge day management greater than [address]: Anita TID: [id number]
== END 2021-03-11 13:45 | DRG 57 ==
LOC: GEROPSY 13:55
PROVIDERS: ADMIT Psychiatry & Neurology Psychiatry; ATTEND Psychiatry & Neurology Psychiatry
DX: G30.9 Alzheimer's disease, unspecified (principal); F01.50 Vascular dementia, unspecified severity, without behavioral disturbance, psychotic disturbance, mood disturbance, and anxiety; F32.3 Major depressive disorder, single episode, severe with psychotic features; R45.851 Suicidal ideations; E11.9 Type 2 diabetes mellitus without complications; E78.5 Hyperlipidemia, unspecified; I10 Essential (primary) hypertension; F02.80 Dementia in other diseases classified elsewhere, unspecified severity, without behavioral disturbance, psychotic disturbance, mood disturbance, and anxiety; F41.9 Anxiety disorder, unspecified; F63.9 Impulse disorder, unspecified; Z20.822 Contact with and (suspected) exposure to COVID-19; R29.6 Repeated falls; Z79.84 Long term (current) use of oral hypoglycemic drugs
CPT/HCPCS: 36415; 80053; 80061; 81001; 82306; 82607; 83036; 83540; 83550; 83735; 84436; 84443; 84480; 85025; 85379; 86592; 90471; 90686; 93005; U0003; 97535